=== PATIENT | male | born 1940 | race Caucasian/White ===

== ENCOUNTER 2017-05-15 00:50 | Observation (INO) | payer MEDICARE, BC ==
[~2017-05-15] VITALS: Ht 182.9 cm; Wt 98.2 kg
--- NOTE | ~2017-05-15 | HP ---
PATIENT: MANUEL BEAVERS MEDICAL RECORD: [id number] ACCOUNT: [id number] LOCATION:[address] : 42 ADMISSION DATE: 05/15/17 HISTORY AND PHYSICAL EXAMINATION DATE OF ADMISSION: 05/15/2017 CHIEF COMPLAINT: Lightheadedness, near syncope. HISTORY OF PRESENT ILLNESS: The patient is a 77-year-old gentleman who apparently was feeling ill yesterday. He apparently called EMS, EMS did present, apparently gave him atropine with a low heart rate in the 40s. The patient presented to the Emergency Room where he was found to be somewhat hypotensive and experiencing acute renal failure. PAST MEDICAL HISTORY: Significant that he has had history of atrial fibrillation. He has also had history of diabetes mellitus, ankle surgery in 2016. Cardiac catheterization [place] [address] Huddleston. He is followed by Dr. Le. The patient has had a history of kidney stones, hypertension, lower GI bleed. FAMILY HISTORY: Father had malignant prostate cancer. MEDICATIONS: Include allopurinol 300 mg once a day, he was recently placed on Bactrim-DS 1 p.o. b.i.d. for 10 days, ferrous sulfate 325 one p.o. b.i.d., Lasix 40 mg 1 p.o. daily, gabapentin 300 mg 1 p.o. daily, lisinopril 20 mg p.o. b.i.d., metformin 500 mg p.o. b.i.d., metoprolol succinate 200 mg 1 p.o. daily, nabumetone 750 p.o. daily, KCl 20 mEq p.o. b.i.d., Prilosec 20 mg once a day, Zocor 40 mg once a day, sotalol 80 mg p.o. b.i.d., verapamil 240 mg once a day, vitamin D 2000 international units once a day. HABITS: None. REVIEW OF SYSTEMS: CONSTITUTIONAL: He denies any headaches, seizure, or syncope. Denied change in visual or auditory acuity. PULMONARY: He denies any shortness of breath, cough, or congestion, history of TB, asthma, or bronchitis. CARDIOVASCULAR: He has had no chest pain, palpitation, PND, or orthopnea. GASTROINTESTINAL: No chronic nausea, vomiting, melena, or hematochezia. GENITOURINARY: No urgency, frequency, or dysuria. PHYSICAL EXAMINATION: VITAL SIGNS: In the Emergency Room, initially the patient was hypotensive. He also had bradycardia, rate was in 40s. HEENT: His head is normocephalic. No lesions. Ears: TMs clear. Eyes: Pupils equal, round, reactive to light. His extraocular movements are intact. His nasal cavity, oral cavity, oropharynx clear. NECK: Supple. There is no adenopathy. HEART: Bradycardic. LUNGS: Clear. ABDOMEN: Soft, bowel sounds positive. LABORATORY DATA: White count was 7.1, hemoglobin 10.1, hematocrit 31.1, platelets were 165. He had a sodium of 140, potassium of 4.5, chloride of 105, HISTORY AND PHYSICAL [id number] NIMESH,MANUEL CO2 of 24.8, his BUN of 26, creatinine have been elevated at 2.3. The patient had a chest x-ray showing no cardiomegaly, no active infiltrates. ASSESSMENT: 1. Symptomatic bradycardia, history of atrial fibrillation, possible sick sinus syndrome. 2. Acute renal failure, diabetes, morbid obesity, hypertension. PLAN: The patient will be admitted to be placed on telemetry. Cardiac enzymes will be cycled times 3. He will also be placed on one half normal saline at 100 cc per hour. We will recheck his kidney function. Cardiology consultation will be obtained. The patient may need to have a pacemaker placed secondary to his symptomatic bradycardia. We will continue to follow. TRANSINT:[id number] Voice Confirmation ID: [id number] DOCUMENT ID: [id number] ILA CROUCH MD at 0657 CC: [id number] DICTATION DATE: 05/15/17900 BUSINESS PROJECT MANAGER: 05/15/17 0940 ADM IN [facility] [address] [place] [address]
--- NOTE | ~2017-05-15 | HEMODYNAMI ---
PATIENT:MANUEL BEAVERS MEDICAL RECORD: [id number] : 42 LOCATION:[facility] [address].2[address] ADMISSION DATE: 05/15/17 Generatedon:05/16/201712:23 Patient name: MANUEL BEAVERS Patient #: [id number] SSN: : 1940 Date of study: 05/16/2017 Page: Of Hemodynamic Procedure Report Patient Data Patient Demographics Procedure consent was obtained First Name: MANUEL Gender: Male Last Name: NIMESH : 1940 Patient #: [id number] Age: 77 year(s) Race: Unknown Additional ID: [id number] Contact details Address: [address] [place] [address] State: [place] City: [facility] Zip code: [address] Admission Admission Data Admission Date: 05/15/2017 Admission Time: 2:43 Room #: D.2130 Procedure Procedure Types Cath Procedure Diagnostic Procedure LHC LHC w/Coronaries Procedure Description Procedure Date Procedure Date: 05/16/2017 Procedure Start Time: 12:11 Procedure End Time: 12:19 Procedure Staff Name Function Rex Li MD Performing Physician Tia Mane RT Monitor Mason Lanier RN Nurse Ellen Genao RT Scrub Procedure Data Cath Procedure Fluoroscopy Diagnostic fluoroscopy Total fluoroscopy Time: 1.9 time: 1.9 min min Diagnostic fluoroscopy Total fluoroscopy dose: 485 dose: 485 mGy mGy Contrast Material Contrast Material Type Amount (ml) Isovue 300 45 Entry Location Entry Primary Successful Side Size Upsize Upsize Entry Closure [place]illa ccessful Closure Location (Fr) 1 (Fr) 2 (Fr) Remarks Device Remarks Radial Right 6 Fr Mechanical artery Short Compression Estimated blood loss: 5 ml Diagnostic catheters Device Type Used For End Catheter Placement DIAGNOSTIC Copeland 110cm 5 Multi-vessel Fr catheter ([id number]) Angiography Procedure Complications No complications Procedure Medications Medication Administration Route Dosage Oxygen NC 2 l/min Lidocaine 2% added to field 20 Heparin Flush Bag added to field 2 bags (1000units/500ml NS) 0.9% NaCl I.V. 100 ml/hr Radial Cocktail I.A. 1 syringe (Verapomil 2mg/Nitro 400mcg/Heparin 1500units) Versed I.V. 1 mg Hemodynamics Rest Heart Rate: 55 (bpm) Pressure Samples Time Site Value (mmHg) Purpose Heart Use Rate(bpm) 12:14 LV 146/21,31 EDP 55 12:14 LV 152/7,32 EDP 61 Gradients Valve Time Site Site Mean SEP/DFP Peak To Heart Use 1 2 (mmHg) (sec/min) Peak Rate (mmHg) (bpm) Aortic 12:14 LV AO 56 Snapshots Pre Cath Intra NCS Post Cath Vital Signs Time Heart Resp SPO2 etCO2 NIBP (mmHg) Rhythm Pain Sedation Rate (ipm) (%) (mmHg) Status Level (bpm) 12:06:33 56 19 92 27.8 156/84(139) NSR 0 (11) 10(A) , No pain 12:10:55 55 19 93 13.5 153/78(99) NSR 0 (11) 10(A) , No pain 12:15:17 52 18 93 20.3 122/68(100) NSR 0 (11) 9(A) , No pain 12:19:30 55 17 93 0 131/72(112) NSR 0 (11) 10(A) , No pain Medications Time Medication Route Dose Verified Delivered Reason Notes Effectiveness by by 12:06:21 Oxygen NC 2 l/min Rex Buffie used for Jen Lanier RN procedure 12:06:28 Lidocaine 2% added 20ml Rex Rex for local to vial Jen Li MD anesthetic field HENDRICKSON 12:06:34 Heparin Flush added 2 bags Rex Rex used for Bag to Jen Li MD procedure (1000units/500ml field HENDRICKSON NS) 12:06:44 0.9% NaCl I.V. 100 Rex Buffie Per ml/hr Jen Lanier RN physician 12:09:43 Versed I.V. 1 mg Rex Buffie for sedation Jen Lanier RN, MD 12:13:35 Radial Cocktail I.A. 1 Rex Rex for (Verapomil syringe Jen Li MD vasodilation 2mg/Derek HENDRICKSON 400mcg/Heparin 1500units) Procedure Log Time Note 11:40:17 Mason Lanier RN sent for patient. Start room use. 11:54:56 Diagnostic Cath Status : Elective 11:55:24 Time tracking: Regular hours 11:55:27 Plan of Care:Hemodynamics will remain stable., Cardiac rhythm will remain stable., Comfort level will be maintained., Respiratory function will remain adequate., Patient/ family verbilizes understanding of procedure., Procedure tolerated without complication., Recovers from procedure without complications.. 11:55:32 Patient received from Med II to CCL 2 Alert and oriented. Tansferred to table in Supine position. 11:55:33 Warm blankets applied, and bart hugger turned on for patient comfort. 11:55:34 Correct patient and procedure confirmed by team. 11:55:35 Signed procedure consent form obtained from patient. 11:55:36 ECG and BP/O2 sat monitors applied to patient. 12:05:18 Vital chart was started 12:05:19 Baseline sample Acquired. 12:05:22 Rhythm: sinus rhythm 12:05:24 Full Disclosure recording started 12:05:35 H&P Date Dictated: 05/15/2017 Within 30 days and on chart., H&P Addendum completed by physician on day of procedure. (MUST COMPLETE FOR ALL OUTPATIENTS). 12:06:21 Oxygen 2 l/min NC was administered by Mason Lanier RN; used for procedure; 12:06:28 Lidocaine 2% 20ml vial added to field was administered by Rex Li MD; for local anesthetic; 12:06:34 Heparin Flush Bag (1000units/500ml NS) 2 bags added to field was administered by Rex Li MD; used for procedure; 12:06:44 0.9% NaCl 100 ml/hr I.V. was administered by Mason Lanier RN; Per physician; 12:06:47 Pre-procedure instructions explained to patient. 12:06:47 Pre-op teaching completed and patient verbalized understanding. 12:06:48 Family in waiting room. 12:06:50 Patient NPO since Midnight. 12:07:36 Is the patient allergic to Iodine/contrast media? No. 12:07:38 Was the patient premedicated? No 12:07:45 Is patient on blood thinner?Yes 12:07:49 ACC The patient was administered the following blood thiners within the last 24 hours: ACCPlavix 12:07:51 Patient diabetic? No. 12:07:53 Previous problem with sedation/anesthesia? No ? 12:07:56 Snore? Yes 12:07:58 Sleep apnea? No 12:08:00 Deviated septum? No 12:08:01 Opens mouth fully? Yes 12:08:02 Sticks out tongue? Yes 12:08:03 Airway obstruction? No ? 12:08:10 Dentures? No ? 12:08:15 Pre procedure: right dorsailis pedis pulse 1+ Palpable, but thready & weak; easily obliterated 12:08:17 Pre procedure: left dorsailis pedis pulse 1+ Palpable, but thready & weak; easily obliterated 12:08:20 Patient pain scale 0/10 ?. 12:08:29 IV patent on arrival in left antecubital with 0.9% NaCl at [facility]. 12:08:32 Lab results completed and on chart. 12:08:37 Right Radial & Right Groin area was prepped with chlora-prep and draped in sterile fashion 12:08:38 Alarms reviewed by R. N. 12:08:39 Sharps counted by scrub and verified by R.N. 12:08:41 Physician arrived 12:08:42 --------ALL STOP TIME OUT------ 12:08:42 Final Timeout: patient, procedure, and site verified with staff and physician. All members of the team are in agreement. 12:08:44 Right Radial & Right Groin site verified by team. 12:08:47 Physical assessment completed. ASA score P 2 - A patient with mild systemic disease as per Rex Li MD. 12:08:56 Sedation plan: IV Moderate Sedation Medication:Versed, Fentanyl 12:09:01 Use device set Radial Dx or PCI 12:09:02 ACIST Syringe (26061) opened to sterile field. 12:09:02 Medline Cath Pack ([id number]) opened to sterile field. 12:09:02 Bag Decanter (2002S) opened to sterile field. 12:09:03 SHEATH 6FR Slender ([id number]) opened to sterile field. 12:09:03 DIAGNOSTIC WIRE .035 260cm J wire (904255) opened to sterile field. 12:09:04 ACIST Hand Control (48495) opened to sterile field. 12:09:05 ACIST Manifold (73816) opened to sterile field. 12:09:05 Tegaderm 4 x 4 (1626W) opened to sterile field. 12:09:06 MBrace Wrist Support ([id number]) opened to sterile field. 12:09:10 Procedure started. 12:09:43 Versed 1 mg I.V. was administered by Mason Lanier RN; for sedation; 12:11:48 Local anesthetic to right radial artery with Lidocaine 2% by Rex Li MD.INITIAL ACCESS ONLY 12:11:58 A 6 Fr Short sheath was inserted into the Right Radial artery 12:12:57 A DIAGNOSTIC Copeland 110cm 5 Fr catheter (130223) was advanced over the wire and used for Multi-vessel Angiography. 12:13:35 Radial Cocktail (Verapomil 2mg/Nitro 400mcg/Heparin 1500units) 1 syringe I.A. was administered by Rex Li MD; for vasodilation; 12:14:04 LV hemodynamics recorded. 12:14:05 LV gram done using WILLETT 12:14:08 Injector settings: Ml/sec: 5, Volume: 15, 12:14:41 EF : 60 % 12:14:56 LCA angiography performed. 12:15:06 Injector settings: Ml/sec: 3, Volume: 6, 12:16:30 RCA angiography performed. 12:16:35 Injector settings: Ml/sec: 3, Volume: 6, 12:17:17 Catheter removed. 12:17:42 TR BAND Standard ([id number]) opened to sterile field. 12:18:09 Sheath removed intact; hemostasis achieved with Mechanical Compression to the Right Radial artery. 12:18:11 Procedure ended.(Physican Out) 12:18:25 Fluoroscopy time 01.90 minutes. 12:18:31 Fluoroscopy dose: 485 mGy 12:18:31 Flurop Dose total: 485 12:18:43 Contrast amount:Isovue 300 45ml. 12:18:45 Sharps counted by scrub and verified by R.N. 12:18:47 TR band inflated with 10cc of air. 12:18:49 Insertion/operative site no bleeding no hematoma. 12:19:03 Post right radial artery:stable 12:19:05 Post Procedure Pulses reassessed and unchanged 12:19:07 Post procedure rhythm: unchanged. 12:19:11 Estimated blood loss: 5 ml 12:19:13 Post procedure instruction explained to patient.Patient verbalizes understanding. 12:19:13 Patient needs reinforcement of post procedure teaching. 12:19:36 Procedure and supply charges have been captured, reviewed, submitted and are correct. 12:19:42 Procedure Complication : No complications 12:19:44 Vital chart was stopped 12:19:45 See physician's report for complete and final results. 12:19:50 Report given to [facility]. 12:19:53 Patient transfered to [facility] with Stretcher. 12:19:55 Procedure ended. 12:19:55 Full Disclosure recording stopped 12:19:59 End room use (Document Last) Device Usage Item Name Manufacture Quantity Catalog Hospital Part Current Minima l Lot# / Number Charge Number Stock Stock Serial# Code ACIST Acist 1 49331 077754 554060 737569 20 Syringe Medical (57872) Systems Inc Medline Cath Cardinal 1 [id number] 042476 35295 015162 5 Pack Health ([id number]) Bag Decanter Microtek 1 2001S 196408 82053 575942 5 () Medical Inc. SHEATH 6FR Terumo 1 [id number] 677879 387839 035241 40 Slender ([id number]) DIAGNOSTIC St Joel 1 564697 673452 835854 940685 30 WIRE .035 260cm J wire (768295) ACIST Hand Acist 1 72237 206103 399214 205842 5 Control Medical (03684) Systems Inc ACIST Acist 1 70304 667562 302342 117081 5 Manifold Medical (31816) Systems Inc Tegaderm 4 x 3M 1 1626W 114074 218398 761798 5 4 (1626W) MBrace Wrist Advanced 1 140-0250-00 332430 47568 494327 5 Support Vascular ([id number]) Dynamics DIAGNOSTIC Terumo 1 40-0543 570766 252685 495549 5 Copeland 110cm 5 Fr catheter (352594) TR BAND Terumo 1 [id number] 907629 589493 010273 40 Standard ([id number]) Signature Audit Winkelman Stage Time Signature Unsigned Intra-Procedure 05/16/2017 Tia Mane 12:23:49 PM RT(R) Signatures Monitor : Tia Mane RT Signature : Date : Time : [facility] [address] [place] [address]
[~2017-05-15 00:50] MED LIST: ASPIRIN325 MG PO; BACTRIM DS TABL1 TAB PO; BETAPACE 80 MG80 MG PO; CALAN SR240 MG PO; CLOTRIMAZOLE-BE30 ML TOPICAL; COUMADIN5 MG PO; FERROUS SULFAT325 MG; GLUCOPHAGE500 MG PO; K-DUR20 MEQ PO; LASIX40 MG PO; MULTIPLE VITAMI1 TA1 PO; NEURONTIN 300300 MG PO; OCUVITE TABLET1 TA1 PO; PRILOSEC20 MG PO; PRINIVIL20 MG PO; RELAFEN750 MG PO; TOPROL XL200 MG PO; ZOCOR20 MG PO; ZOVIRAX800 MG PO; ZYLOPRIM300 MG PO
[2017-05-15 01:28] LABS: BASOPHILS 0.4 % (0-2); EOSINOPHILS 2.3 % (0-7); HEMATOCRIT 34.1 % (42.0-54.0); IMMATURE GRANULOCYTES 0.4 % (0-5); LYMPHOCYTES 20.9 % (15-50); MCH 31.6 pg (26.0-34.0); MCHC 32.3 g/dL (31.0-37.0); MONOCYTES 7.1 % (2-11); NEUTROPHILS 68.9 % (40-80); PLATELET COUNT 185 10x3/uL (130-400); RBC 3.48 10x6/uL (4.20-6.10); RDW 14.4 % (11.5-14.5); WBC 9.2 10x3/uL (4.8-10.8)
[2017-05-15 01:42] LABS: ALBUMIN 3.7 g/dL (3.4-5.0); ALKALINE PHOSPHATASE 53 U/L (46-116); ALT (SGPT) 27 U/L (10-68); CALC OSMOLALITY 289 mosm/kg (275-300); CALCIUM 8.3 mg/dL (8.5-10.1); CARBON DIOXIDE 22.5 mmol/L (21.0-32.0); CHLORIDE - SERUM 103 mmol/L (98-107); CREATININE - SERUM 2.3 mg/dL (0.6-1.3); POTASSIUM - SERUM 4.7 mmol/L (3.5-5.1); PROTEIN - SERUM 7.8 g/dL (6.4-8.2); SODIUM 139 mmol/L (136-145); UREA NITROGEN 28 mg/dL (7-18); eGFR NON AFRICAN AMERICAN 29 mL/min (90-120)
[2017-05-15 01:43] LABS: GLUCOSE 209 mg/dL (74-106)
[2017-05-15 01:54] LABS: CKMB 3.8 U/L (0.0-3.6); CREATINE KINASE 128 UL (21-232); TROPONIN-I < 0.017 ng/mL (0.000-0.060)
[2017-05-15 07:27] LABS: APPEARANCE CLEAR (CLEAR); BACTERIA FEW /hpf (NONE SEEN); BILIRUBIN NEGATIVE (NEGATIVE); COLOR YELLOW (YELLOW); EPITHELIAL CELLS OCC /hpf (0-5); GLUCOSE NEGATIVE (NEGATIVE); HYALINE CAST 0-5 /lpf (NONE SEEN); KETONE NEGATIVE (NEGATIVE); MUCUS <1+ /lpf (NONE SEEN); NITRITE NEGATIVE (NEGATIVE); PROTEIN NEGATIVE (NEGATIVE); RED CELLS - URINE OCC /hpf (0-5); SPECIFIC GRAVITY 1.015 (1.005-1.020); UROBILINOGEN NORMAL (NORMAL); WHITE CELLS - URINE 0-5 /hpf (0-5)
[2017-05-15 07:36] LABS: BASOPHILS 0.4 % (0-2); EOSINOPHILS 2.9 % (0-7); HEMATOCRIT 31.1 % (42.0-54.0); HEMOGLOBIN 10.1 g/dL (13.5-17.5); IMMATURE GRANULOCYTES 0.7 % (0-5); LYMPHOCYTES 30.4 % (15-50); MCH 31.6 pg (26.0-34.0); MCHC 32.5 g/dL (31.0-37.0); MCV 97.2 fL (80.0-100.0); MONOCYTES 7.7 % (2-11); NEUTROPHILS 57.9 % (40-80); PLATELET COUNT 165 10x3/uL (130-400); RDW 14.5 % (11.5-14.5); WBC 7.1 10x3/uL (4.8-10.8)
[2017-05-15 08:14] LABS: CALCIUM 8.5 mg/dL (8.5-10.1); CARBON DIOXIDE 24.8 mmol/L (21.0-32.0); CHLORIDE - SERUM 105 mmol/L (98-107); CKMB 3.3 U/L (0.0-3.6); CREATINE KINASE 95 UL (21-232); CREATININE - SERUM 1.9 mg/dL (0.6-1.3); MAGNESIUM - SERUM 1.5 mg/dL (1.8-2.4); POTASSIUM - SERUM 4.5 mmol/L (3.5-5.1); SODIUM 140 mmol/L (136-145); UREA NITROGEN 26 mg/dL (7-18); eGFR NON AFRICAN AMERICAN 37 mL/min (90-120)
[2017-05-15 08:15] LABS: CALC OSMOLALITY 283 mosm/kg (275-300); GLUCOSE 104 mg/dL (74-106); TROPONIN-I < 0.017 ng/mL (0.000-0.060)
[2017-05-15 14:43] LABS: CKMB 2.9 U/L (0.0-3.6); CREATINE KINASE 86 UL (21-232); TROPONIN-I < 0.017 ng/mL (0.000-0.060)
[2017-05-15 20:00] VITALS: BP 139/63
[2017-05-15 20:15] LABS: CKMB 2.5 U/L (0.0-3.6); CREATINE KINASE 105 UL (21-232); TROPONIN-I < 0.017 ng/mL (0.000-0.060)
[2017-05-15 23:02] VITALS: BP 137/63; Ht 182.9 cm; Wt 98.2 kg
[2017-05-16] VITALS: BP 140/60
[2017-05-16 04:00] VITALS: BP 138/61
[2017-05-16 05:38] LABS: BASOPHILS 0.7 % (0-2); EOSINOPHILS 5.8 % (0-7); HEMATOCRIT 31.5 % (42.0-54.0); HEMOGLOBIN 10.2 g/dL (13.5-17.5); IMMATURE GRANULOCYTES 0.3 % (0-5); LYMPHOCYTES 21.4 % (15-50); MCH 31.4 pg (26.0-34.0); MCHC 32.4 g/dL (31.0-37.0); MCV 96.9 fL (80.0-100.0); MEAN PLATELET VOLUME 10.9 fL (7.4-10.4); MONOCYTES 8.8 % (2-11); PLATELET COUNT 168 10x3/uL (130-400); RBC 3.25 10x6/uL (4.20-6.10); RDW 14.1 % (11.5-14.5)
[2017-05-16 06:04] LABS: ANION GAP 15.7 mmol/L (8-16); CALCIUM 8.1 mg/dL (8.5-10.1); CREATININE - SERUM 1.5 mg/dL (0.6-1.3)
[2017-05-16 06:05] LABS: POTASSIUM - SERUM 3.7 mmol/L (3.5-5.1)
[2017-05-16 08:37] VITALS: BP 183/90
== END 2017-05-16 15:48 | disposition home or self-care (01) ==
LOC: D.ER 00:50 → D.EDHOLD 02:43 → D.M2 02:43 → OBSVTIME 02:43 → D.EDHOLD 02:43 → D.M2 17:05
PROVIDERS: Family Medicine
DX: I25.10 Atherosclerotic heart disease of native coronary artery without angina pectoris (principal); I48.91 Unspecified atrial fibrillation; E11.9 Type 2 diabetes mellitus without complications; N17.9 Acute kidney failure, unspecified; E66.9 Obesity, unspecified; Z68.29 Body mass index [BMI] 29.0-29.9, adult

== ENCOUNTER → 2018-08-09 10:24 | Outpatient (CLI) | payer MEDICARE, BC ==
[2017-05-15 23:02] VITALS: BMI 29.3
== END | disposition home or self-care (01) ==
LOC: D.HCCARDIO 10:24
PROVIDERS: ATTEND Internal Medicine Cardiovascular Disease
DX: I34.0 Nonrheumatic mitral (valve) insufficiency (principal)

== ENCOUNTER 2019-02-17 13:49 | Inpatient (IN) | payer MEDICARE, BC ==
[~2019-02-17] VITALS: Ht 182.9 cm; Wt 103.0 kg
--- NOTE | 2019-02-17 13:59 | NUR ---
FLU SWAB SENT TO LAB AT THIS TIME.
[2019-02-17 14:13] LABS: HEMATOCRIT 37.4 % (42.0-54.0); HEMOGLOBIN 12.3 g/dL (13.5-17.5); MCH 32.5 pg (26.0-34.0); MCHC 32.9 g/dL (31.0-37.0); MCV 98.9 fL (80.0-100.0); MEAN PLATELET VOLUME 11.2 fL (7.4-10.4); PLATELET COUNT 159 10x3/uL (130-400); RBC 3.78 10x6/uL (4.20-6.10); RDW 14.6 % (11.5-14.5)
[2019-02-17 14:27] LABS: ANION GAP 15.3 mmol/L (8-16); CALCIUM 8.9 mg/dL (8.5-10.1); CARBON DIOXIDE 24.3 mmol/L (21.0-32.0); CREATININE - SERUM 1.9 mg/dL (0.6-1.3); POTASSIUM - SERUM 3.6 mmol/L (3.5-5.1)
[2019-02-17 14:33] LABS: ALBUMIN 3.3 g/dL (3.4-5.0); BILIRUBIN - TOTAL 1.2 mg/dL (0.2-1.3); PROTEIN - SERUM 7.5 g/dL (6.4-8.2)
[2019-02-17 14:39] LABS: LYMPHOCYTES 2 % (15-50); MONOCYTES 3 % (2-11); NEUTROPHILS 90 % (40-80); PLATELET ESTIMATE NORMAL
[2019-02-17 15:30] LABS: CKMB 2.1 U/L (0.0-3.6); CREATINE KINASE 107 UL (21-232); TROPONIN-I < 0.017 ng/mL (0.000-0.060)
[2019-02-17 18:05] LABS: APPEARANCE CLEAR (CLEAR); BILIRUBIN NEGATIVE (NEGATIVE); COLOR YELLOW (YELLOW); GLUCOSE NEGATIVE (NEGATIVE); KETONE NEGATIVE (NEGATIVE); NITRITE NEGATIVE (NEGATIVE); PROTEIN TRACE mg/dL (NEGATIVE); SPECIFIC GRAVITY 1.015 (1.005-1.020); UROBILINOGEN NORMAL (NORMAL)
[2019-02-17 18:33] VITALS: BP 133/70
[2019-02-17 20:00] VITALS: BP 118/82
[2019-02-17 20:21] VITALS: BP 118/82; BMI 30.8
--- NOTE | 2019-02-17 20:30 | NUR ---
PT ARRIVED TO FLOOR VIA STRETCHER, NO SIGNS OF DISTRESS. AAOX4. PT DENIES ANY PAIN AT THIS TIME. C/O BEING COLD, ASSISTED PT WITH PUTTING ON JACKET AND COVERING UP WITH HIS BLANKETS. PT DENIES ANY OTHER NEEDS. ADMISSION ASSESSMENT COMPLETE. CL IN REACH, BED IN LOWEST POSITION.
[2019-02-18] VITALS: BP 139/73
[2019-02-18 04:00] VITALS: BP 132/73
[2019-02-18 06:22] LABS: BASOPHILS 0.3 % (0-2); EOSINOPHILS 0.6 % (0-7); HEMATOCRIT 33.3 % (42.0-54.0); HEMOGLOBIN 10.5 g/dL (13.5-17.5); IMMATURE GRANULOCYTES 0.4 % (0-5); LYMPHOCYTES 7.7 % (15-50); MCH 31.3 pg (26.0-34.0); MCHC 31.5 g/dL (31.0-37.0); MCV 99.1 fL (80.0-100.0); MEAN PLATELET VOLUME 11.8 fL (7.4-10.4); MONOCYTES 5.2 % (2-11); NEUTROPHILS 85.8 % (40-80); PLATELET COUNT 131 10x3/uL (130-400); RBC 3.36 10x6/uL (4.20-6.10)
[2019-02-18 06:32] LABS: WBC 16.8 10x3/uL (4.8-10.8)
[2019-02-18 06:40] LABS: ALBUMIN 2.6 g/dL (3.4-5.0); ANION GAP 15.7 mmol/L (8-16); BILIRUBIN - TOTAL 0.79 mg/dL (0.2-1.3); CALCIUM 7.8 mg/dL (8.5-10.1); CARBON DIOXIDE 21.5 mmol/L (21.0-32.0); CREATININE - SERUM 1.5 mg/dL (0.6-1.3); POTASSIUM - SERUM 3.2 mmol/L (3.5-5.1); PROTEIN - SERUM 6.2 g/dL (6.4-8.2)
[2019-02-18 10:57] VITALS: BP 141/66
[2019-02-18 13:40] VITALS: Ht 182.9 cm; Wt 103.0 kg
[2019-02-18 17:35] LABS: APTT 29.6 SECONDS (22.8-39.4); INR 1.36 (0.85-1.17); MAGNESIUM - SERUM 1.4 mg/dL (1.8-2.4); PROTIME 16.2 SECONDS (11.6-15.0)
[2019-02-18 17:44] LABS: IRON 18 ug/dl (35-150)
[2019-02-18 17:45] LABS: % SATURATION 8 % (15-55); TOTAL IRON BIND CAPACITY 203 ug/dl (260-445); UNSAT IRON BIND CAPACITY 185 ug/dl (150-375)
--- NOTE | 2019-02-18 18:30 | NUR ---
REVIEWED ASSESSMENT BY SATELLITE INSTALLATION TECHNICIAN AND I CONCUR.
[2019-02-18 18:32] VITALS: BP 139/67
--- NOTE | 2019-02-18 19:20 | NUR ---
EVENING ROUNDS COMPLETE, PT LAYING IN BED, NO SIGNS OF DISTRESS. AAOX4. PT DENIES ANY PAIN OR NEEDS AT THIS TIME. PT IS CONCERNED ABOUT HIS DIARRHEA AND THAT HE SENT A SAMPLE. EXPLAINED TO PT THAT WE WILL KNOW MORE WHEN THE RESULTS OF THE SAMPLE ARE READ. PT VOICED UNDERSTANDING. CL IN REACH, BED IN LOWEST POSITION.
[2019-02-18 20:00] VITALS: BP 160/83
[2019-02-18 21:47] LABS: MAGNESIUM - SERUM 1.5 mg/dL (1.8-2.4); POTASSIUM - SERUM 3.5 mmol/L (3.5-5.1)
[2019-02-19 00:27] VITALS: BP 152/81
[2019-02-19 04:30] VITALS: BP 132/71
[2019-02-19 04:42] LABS: BASOPHILS 0.2 % (0-2); HEMATOCRIT 32.8 % (42.0-54.0); HEMOGLOBIN 10.5 g/dL (13.5-17.5); IMMATURE GRANULOCYTES 0.3 % (0-5); LYMPHOCYTES 10.1 % (15-50); MCH 31.4 pg (26.0-34.0); MCV 98.2 fL (80.0-100.0); NEUTROPHILS 79.4 % (40-80); PLATELET COUNT 151 10x3/uL (130-400); RBC 3.34 10x6/uL (4.20-6.10); RDW 14.7 % (11.5-14.5); WBC 12.8 10x3/uL (4.8-10.8)
[2019-02-19 05:00] LABS: ALBUMIN 2.4 g/dL (3.4-5.0); ANION GAP 13.7 mmol/L (8-16); BILIRUBIN - TOTAL 0.58 mg/dL (0.2-1.3); CALCIUM 7.8 mg/dL (8.5-10.1); CARBON DIOXIDE 21.7 mmol/L (21.0-32.0); CREATININE - SERUM 1.2 mg/dL (0.6-1.3); MAGNESIUM - SERUM 1.3 mg/dL (1.8-2.4); POTASSIUM - SERUM 3.4 mmol/L (3.5-5.1); PROTEIN - SERUM 6.6 g/dL (6.4-8.2)
--- NOTE | 2019-02-19 07:47 | NUR ---
REPORT RECIEVED. PT LYING ON RIGHT SIDE. RR EVEN AND UNLABORED. PT HAS A L WRIST PIV INFUSING NS @175. BED LOCKED AND IN LOWEST POSITION,CALL LIGHT WITHIN REACH. WILL CTM
[2019-02-19 08:32] VITALS: BP 130/81
--- NOTE | 2019-02-19 11:26 | NUR ---
PT IS HAVING LARGE AMOUNT OF DIARRHEA. STATES THIS HAS BEEN GOING ON FOR DAYS NOW. HE SAYS HE FEELS AWFUL. IS AT BEDSIDE AND WORRIED ABOUT PT. PAGED DORIAN RUSHING TO LET HER KNOW THAT PT AND WOULD LIKE TO SEE THERE DR. SENTHIL VASQUEZ
[2019-02-19 11:51] VITALS: BP 105/48
--- NOTE | 2019-02-19 14:54 | NUR ---
I have reviewed this patient and I concur with the Shift Assessment completed by the Licensed Practical Nurse today this shift.
[2019-02-19 16:10] VITALS: BP 132/64
[2019-02-19 20:00] VITALS: BP 150/78
--- NOTE | 2019-02-19 21:00 | NUR ---
PT SITTING UP ON THE EDGE OF THE BED. HE IS SHORT OF BREATH. HIS O2 SAT IS 94% ON ROOM AIR. HE STATES HE HAS BEEN SHORT OF BREATH ALL DAY. HE ALSO HAS A TEMP OF 100.9. HE HAS A THICK LONG SLEEVED SHIRT ON AND IS WRAPPED IN A BLANKET. TOOK THE BLANKET OFF HIM AND TURNED THE TEMP DOWN IN HIS ROOM. TYLENOL GIVEN FOR FEVER. SPOKE TO СЕРГЕЙ KENNEDY REGARDING PT FEELING SHORT OF BREATH. ALBUTERAL UPDRAFTS ORDERED PRN. PT DECLINED A TX AT THIS TIME. ALSO, EDUCATED PT ON THE USE OF THE INCENTIVE SPIROMETER ORDERED. HE HAS EXPIRATORY WHEEZES IN THE UPPER LOBES. PT DID THE INCENTIVE SPIROMETER 10X. HE STATES HE IS FEELING A LITTLE BETTER. ASKED PT TO CALL IF HE DECIDES HE WANTS THE BREATHING TX.VERBALIZED UNDERSTANDING.
[2019-02-20] VITALS (7 sets, daily range): BP systolic 114–179; BP diastolic 66–100
--- NOTE | 2019-02-20 06:09 | NUR ---
CALLED СЕРГЕЙ KENNEDY TO REPORT BLOOD PRESSURE OF 179/97. ORDER GIVEN TO GIVE PTS 0900 DOSE OF LISINOPRIL NOW.
[2019-02-20 06:19] LABS: BASOPHILS 0.2 % (0-2); HEMATOCRIT 33.6 % (42.0-54.0); HEMOGLOBIN 11.1 g/dL (13.5-17.5); IMMATURE GRANULOCYTES 0.4 % (0-5); LYMPHOCYTES 10.7 % (15-50); MCH 32.3 pg (26.0-34.0); MCV 97.7 fL (80.0-100.0); MONOCYTES 9.2 % (2-11); NEUTROPHILS 77.5 % (40-80); PLATELET COUNT 151 10x3/uL (130-400); RBC 3.44 10x6/uL (4.20-6.10); RDW 14.8 % (11.5-14.5); WBC 12.7 10x3/uL (4.8-10.8)
[2019-02-20 06:26] LABS: ALBUMIN 2.7 g/dL (3.4-5.0); ANION GAP 16.8 mmol/L (8-16); BILIRUBIN - TOTAL 0.71 mg/dL (0.2-1.3); CARBON DIOXIDE 19.4 mmol/L (21.0-32.0); CREATININE - SERUM 1.1 mg/dL (0.6-1.3); MAGNESIUM - SERUM 1.6 mg/dL (1.8-2.4); PROTEIN - SERUM 6.9 g/dL (6.4-8.2)
[2019-02-20 06:28] LABS: POTASSIUM - SERUM 4.2 mmol/L (3.5-5.1)
--- NOTE | 2019-02-20 07:40 | NUR ---
REPORT RECIEVED. RR EVEN AND UNLABORED. PT HAS A L WRIST PIV INFUSING NS @ 175. PT CONCERED WITH HIS CARE THUS FAR. HE STATES HE IS NOT GETTING ANY BETTER. HE HAS NOT HAD DIARRHEA SINCE YESTERDAY MORNING. HE DOES STATE THAT HE HAS HAD SOME SWELLING TO HIS SCROTAL SAC AND SOME SOB LAYING DOWN. CALLED DAISY AND RECIEVED ORDERS TO CONSULT DR ALVAREZ AND GET A NEW CHEST XRAY, CONSULET DR METZGER, AND DROP THE FLUIDS FROM 175HR TO 75HR. WILL CTM
--- NOTE | 2019-02-20 11:08 | NUR ---
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 IT MEASURES 4CM X 3CM X 0.3CM. THE WOUND BED IS PALE PINK AND THE WOUND EDGES ARE ROLLED. HIS LOWER LEG IS STAINED DARK AND IS HAIRLESS. THERE IS A MODERATE AMOUNT OF SEROUS DRAINAGE THAT HAS NO ODOR. HE STATES HE HAS BEEN GOING TO THE [facility] FOR 19 MONTHS FOR OUTPATIENT TREATMENT. CURRENTLY BACTROBAN OINTMENT IS BEING APPLIED TO WOUND AND HYDROCORTOSONE CREAM APPLIED TO THE SURROUNDING SKIN. IT IS THEN BEING COVERED WITH A DRESSING. HIS RIGHT GREAT TOE IS PEELING AND HAS SCABS FROM AN INJURY (SCRAPED ON CONCRETE). THIS WOUND IS ALSO BEING TREATED WITH BACTROBAN. THE TOP MEDIAL LEFT FOOT HAS A 2CM X 2CM PEELING/SCABBED AREA WHICH THE PT STATES WAS FROM A PROCEDURE. HE SAYS HE DOES NOT DO ANYTHING TO THIS AREA AND LEAVES IT OPEN TO AIR. CURRENTLY HIS LEGS ARE ELEVATED WHILE HE IS SITTING IN A RECLINER. RECOMMEND CONTINUING WITH THE CURRENT TREATMENT. WOUND CARE WILL MONITOR.
--- NOTE | 2019-02-20 12:44 | NUR ---
Nutrition Follow-up: Noted diet advanced to full liquid yesterday. Pt reports tolerating breakfast this AM with fair/good PO intake. C/o some nausea associated with meds, not food. Denies diarrhea as of visit this AM. Noted wound care note. Diet: Full Liquid No new wt - daily wts ordered Last BM: 02/19 Labs noted: Glu 149, Ca 8.0, Alb 2.7, Mg 1.6 Meds noted: Questran, KDur, MagOx, NS @ 200 -Rec ADAT to low sodium diabetic as medically feasible. -Offer Glucerna with meals. -Will monitor diet advancement/tolerance, skin integrity, wt trend (noted daily wts ordered). -RD following.
--- NOTE | 2019-02-20 15:19 | NUR ---
I have reviewed this patient and I concur with the Shift Assessment completed by the Licensed Practical Nurse today this shift.
--- NOTE | 2019-02-20 19:15 | NUR ---
BEDSIDE REPORT RECEIVED FROM DAY SHIFT, PT CARE ASSUMED. PT SITTING UP IN BED WITH EYES CLOSED, RR EVEN AND NONLABORED, NO S/S OF DISTRESS, AROUSES EASILY TO VOICE. ORIENTED X4, DENIES ANY NEEDS AT THIS TIME. BED IN LOWEST POSITION, SR X2, CALL LIGHT WITHIN REACH. WILL CONTINUE TO MONITOR.
--- NOTE | 2019-02-20 22:00 | NUR ---
ORAL TEMP 98.8 F. BED IN LOWEST POSITION, SRX2, CALL LIGHT WITHIN REACH. WILL CONTINUE TO MONITOR.
[2019-02-21 04:00] VITALS: BP 180/108
[2019-02-21 05:48] LABS: ALBUMIN 2.8 g/dL (3.4-5.0); ANION GAP 18.5 mmol/L (8-16); BILIRUBIN - TOTAL 0.76 mg/dL (0.2-1.3); C-REACTIVE PROTEIN 14.5 mg/dL (0.0-0.9); CALCIUM 8.6 mg/dL (8.5-10.1); CARBON DIOXIDE 19.3 mmol/L (21.0-32.0); CREATININE - SERUM 1.1 mg/dL (0.6-1.3); MAGNESIUM - SERUM 1.8 mg/dL (1.8-2.4); PHOSPHOROUS 2.6 mg/dL (2.5-4.9); POTASSIUM - SERUM 3.8 mmol/L (3.5-5.1); PROTEIN - SERUM 7.7 g/dL (6.4-8.2)
--- NOTE | 2019-02-21 07:45 | NUR ---
REPORT RECIEVED. PT SITTING UP ON THE SIDE OF THE BED. RR EVEN AND UNLABORED ON 2L NC. PT HAS A L WRIST PIV INFUSING NS @ 30. BED LOCKED AND IN LOWEST POSITION. CALL LIGHT WITHIN REACH. WILL CTM
[2019-02-21 08:38] LABS: BASOPHILS 0.3 % (0-2); EOSINOPHILS 1.4 % (0-7); HEMATOCRIT 32.4 % (42.0-54.0); HEMOGLOBIN 10.8 g/dL (13.5-17.5); IMMATURE GRANULOCYTES 0.7 % (0-5); LYMPHOCYTES 11.8 % (15-50); MCH 32.2 pg (26.0-34.0); MCHC 33.3 g/dL (31.0-37.0); MCV 96.7 fL (80.0-100.0); MONOCYTES 9.2 % (2-11); NEUTROPHILS 76.6 % (40-80); RBC 3.35 10x6/uL (4.20-6.10); RDW 14.7 % (11.5-14.5); WBC 11.5 10x3/uL (4.8-10.8)
[2019-02-21 08:41] LABS: PLATELET COUNT 185 10x3/uL (130-400)
[2019-02-21 09:30] VITALS: BP 159/90
--- NOTE | 2019-02-21 13:01 | NUR ---
PT HEART RATE DROPED INTO THE 50'S UPON ENTERING THE ROOM PT WAS SITTING IN THE BEDSIDE CHAIR WITH OXYGEN ON TOP OF HIS NOSE. PUT O2 BACK ON PT. 10 MINS LATER PTS HEART RATE DROPED INTO THE 40'S. NAN VILLA AND GOT ORDERS TO CONSULT CARDIOLOGY. CALLED DR SOOD AT THIS TIME. WILL CTM
--- NOTE | 2019-02-21 15:03 | NUR ---
I have reviewed this patient and I concur with the Shift Assessment completed by the Licensed Practical Nurse today this shift.
[2019-02-21 17:32] VITALS: BP 139/65
--- NOTE | 2019-02-21 17:57 | NUR ---
DR KESSLER SAID IT WAS OK TO GIVE LASIX.
--- NOTE | 2019-02-21 19:10 | NUR ---
BEDSIDE REPORT RECEIVED FROM DAY SHIFT, PT CARE ASSUMED. WROTE NAME ON BOARD. PT SITTING UP IN BEDSIDE CHAIR, AAOX4. DENIES ANY NEEDS AT THIS TIME. BED IN LOWEST POSITION, CALL LIGHT AND URINAL WITHIN REACH. WILL CONTINUE TO MONITOR.
[2019-02-21 20:00] VITALS: BP 158/116
[2019-02-22] VITALS (7 sets, daily range): BP systolic 128–180; BP diastolic 82–99
[2019-02-22 04:20] LABS: BASOPHILS 0.4 % (0-2); EOSINOPHILS 2.9 % (0-7); HEMATOCRIT 31.3 % (42.0-54.0); HEMOGLOBIN 10.1 g/dL (13.5-17.5); LYMPHOCYTES 12.5 % (15-50); MCH 31.4 pg (26.0-34.0); MCHC 32.3 g/dL (31.0-37.0); MCV 97.2 fL (80.0-100.0); MEAN PLATELET VOLUME 11.7 fL (7.4-10.4); MONOCYTES 9.4 % (2-11); NEUTROPHILS 73.8 % (40-80); RBC 3.22 10x6/uL (4.20-6.10); RDW 14.8 % (11.5-14.5); WBC 12.6 10x3/uL (4.8-10.8)
[2019-02-22 04:21] LABS: PLATELET COUNT 141 10x3/uL (130-400)
[2019-02-22 04:35] LABS: ALBUMIN 2.4 g/dL (3.4-5.0); ANION GAP 14.7 mmol/L (8-16); BILIRUBIN - TOTAL 0.56 mg/dL (0.2-1.3); CALCIUM 8.1 mg/dL (8.5-10.1); CARBON DIOXIDE 21.7 mmol/L (21.0-32.0); CREATININE - SERUM 1.2 mg/dL (0.6-1.3); MAGNESIUM - SERUM 1.6 mg/dL (1.8-2.4); POTASSIUM - SERUM 3.4 mmol/L (3.5-5.1); PROTEIN - SERUM 6.5 g/dL (6.4-8.2)
--- NOTE | 2019-02-22 08:00 | NUR ---
A/A/OX4. SITTING UP IN BEDSIDE CHAIR. DENIES ANY PAIN AND NO REQUESTS VOICED. UP TO BATHROOM AND SPECIMEN FOR O/P OBTAINED AND TAKEN TO LAB. ASSESSMENT COMPLETED AND WILL CONTINUE POC. IV PATENT TO LEFT FOREARM AND INFUSING WELL WITHOUT REDNESS OR EDEMA AT SITE. DRESSING TO RIGHT CALF C/D/I.
--- NOTE | 2019-02-22 18:37 | NUR ---
REVIEWED ASSESSMENT BY ROLL THREADER OPERATOR AND I CONCUR.
--- NOTE | 2019-02-22 19:10 | NUR ---
BEDSIDE REPORT RECEIVED FROM DAY SHIFT, PT CARE ASSUMED. WROTE NAME ON BOARD. PT SITTING UP IN BED, WATCHING TV, AAOX4. 150 ML CLEAR YELLOW URINE EMPTIED FROM URINAL. DENIES ANY OTHER NEEDS AT THIS TIME. BED IN LOWEST POSITION, SR X2, CALL LIGHT AND URINAL WITHIN REACH. WILL CONTINUE TO MONITOR.
[2019-02-23 04:00] VITALS: BP 144/74
[2019-02-23 05:29] LABS: BASOPHILS 0.4 % (0-2); EOSINOPHILS 6.2 % (0-7); HEMATOCRIT 33.1 % (42.0-54.0); HEMOGLOBIN 10.9 g/dL (13.5-17.5); IMMATURE GRANULOCYTES 1.2 % (0-5); LYMPHOCYTES 16.2 % (15-50); MCH 31.8 pg (26.0-34.0); MCHC 32.9 g/dL (31.0-37.0); MCV 96.5 fL (80.0-100.0); MEAN PLATELET VOLUME 11.2 fL (7.4-10.4); MONOCYTES 9.2 % (2-11); NEUTROPHILS 66.8 % (40-80); RBC 3.43 10x6/uL (4.20-6.10); RDW 14.8 % (11.5-14.5); WBC 10.6 10x3/uL (4.8-10.8)
[2019-02-23 05:32] LABS: PLATELET COUNT 192 10x3/uL (130-400)
[2019-02-23 06:37] LABS: ALBUMIN 2.5 g/dL (3.4-5.0); ALKALINE PHOSPHATASE 70 U/L (46-116); BILIRUBIN - TOTAL 0.62 mg/dL (0.2-1.3); CALC OSMOLALITY 277 mosm/kg (275-300); CALCIUM 8.4 mg/dL (8.5-10.1); CARBON DIOXIDE 20.5 mmol/L (21.0-32.0); CHLORIDE - SERUM 106 mmol/L (98-107); GLUCOSE 149 mg/dL (74-106); MAGNESIUM - SERUM 1.6 mg/dL (1.8-2.4); POTASSIUM - SERUM 3.4 mmol/L (3.5-5.1); PROTEIN - SERUM 6.9 g/dL (6.4-8.2); SODIUM 138 mmol/L (136-145); UREA NITROGEN 11 mg/dL (7-18); eGFR NON AFRICAN AMERICAN 77 mL/min (90-120)
[2019-02-23 06:38] LABS: ALT (SGPT) 27 U/L (10-68)
--- NOTE | 2019-02-23 07:30 | NUR ---
A/A/OX4. SITTING UP IN CHAIR AT BEDSIDE. DENIES ANY PAIN OR DISCOMFORT AND VOICES NOT REQUESTS. STATES HE IS FEELING MUCH BETTER TODAY THAN YESTERDAY. DRESSING TO RIGHT LEG C/D/I IS DRESSING TO LEFT GREAT TOE. IV PATENT AT KVO RATE OF 30 CC/HR TO LEFT WRIST. ASSESSMENT COMPLETED AND WILL CONTINUE POC.
[2019-02-23 09:00] VITALS: BP 167/90
[2019-02-23 13:04] VITALS: BP 148/80
--- NOTE | 2019-02-23 17:27 | NUR ---
REVIEWED THE ASSESSMENT BY RANJANA BRAXTON AND I CONCUR.
[2019-02-23 17:42] VITALS: BP 182/95
[2019-02-23 20:46] VITALS: BP 161/90
--- NOTE | 2019-02-23 22:14 | NUR ---
PT ALERT AND ORIENTED X4 SITTING UP IN CHAIR. PT RR EVEN AND UNLABORED. PT O2-96% ON ROOM AIR. PT REFUSES O2 AT THIS TIME. NO S/S OF DISTRESS. VITALS STABLE. PT RUNNING 86 A-FIBB ON TELE. PT SCANNER BROKE IN ROOM. BED LOW CALL LIGHT WITHIN REACH WILL CONTINUE TO MONITOR.
[2019-02-24] VITALS: BP 151/75
--- NOTE | 2019-02-24 04:21 | NUR ---
I have reviewed this patient and I concur with the Shift Assessment completed by the Licensed Practical Nurse today this shift.
[2019-02-24 04:30] VITALS: BP 167/89
[2019-02-24 05:32] LABS: BASOPHILS 0.3 % (0-2); EOSINOPHILS 5.9 % (0-7); HEMATOCRIT 34.5 % (42.0-54.0); HEMOGLOBIN 11.5 g/dL (13.5-17.5); IMMATURE GRANULOCYTES 1.3 % (0-5); LYMPHOCYTES 12.5 % (15-50); MCHC 33.3 g/dL (31.0-37.0); MCV 96.1 fL (80.0-100.0); MEAN PLATELET VOLUME 10.8 fL (7.4-10.4); MONOCYTES 8.3 % (2-11); NEUTROPHILS 71.7 % (40-80); RBC 3.59 10x6/uL (4.20-6.10); RDW 14.5 % (11.5-14.5); WBC 10.8 10x3/uL (4.8-10.8)
[2019-02-24 05:34] LABS: PLATELET COUNT 293 10x3/uL (130-400)
[2019-02-24 06:11] LABS: ALBUMIN 2.5 g/dL (3.4-5.0); ALKALINE PHOSPHATASE 73 U/L (46-116); ALT (SGPT) 32 U/L (10-68); CALC OSMOLALITY 278 mosm/kg (275-300); CALCIUM 8.4 mg/dL (8.5-10.1); CARBON DIOXIDE 22.7 mmol/L (21.0-32.0); CHLORIDE - SERUM 104 mmol/L (98-107); GLUCOSE 150 mg/dL (74-106); POTASSIUM - SERUM 3.4 mmol/L (3.5-5.1); SODIUM 138 mmol/L (136-145); UREA NITROGEN 12 mg/dL (7-18); eGFR NON AFRICAN AMERICAN 77 mL/min (90-120)
[2019-02-24 08:02] VITALS: BP 158/83
--- NOTE | 2019-02-24 10:43 | MORECARE ---
CASE MANAGEMENT DISCHARGE SUMMARY PATIENT: MANUEL BEAVERS UNIT: [id number] ADM DATE: 02/19/19 AGE: 78 : 41 SEX: M ROOM/BED: D.2106 AUTHOR: PENELOPE BRANNON PHYSICIAN: REFERRING PHYSICIAN: ANDERSON DOMINGUEZ MD DATE OF SERVICE: 02/24/19 Discharge Plan Patient Name: MANUEL BEAVERS [facility] [facility] 1940 Planned Disposition: Anticipated Discharge Date: Discharge Date: Expected LOS: Initial Reviewer: [email or web address] Initial Review Date: 02/24/2019 Generated: 02/24/19 11:43 am Coverage Notice Reviewer: [email or web address] Magy Richter Notice Issued Date-Time: 02/18/2019 13:35 Notice Type: Medicare Outpatient Observation Notice Notice Delivered To: Patient Relationship to Patient: Self Project Estimator Name: Delivery Method: HAND - Hand Delivered Erinn Days: Prior Verbal Notification: Recipient Understood Notice: Recipient Signature: Yes Med Rec Note Co-signed by Attending: Coverage Notice Comment: ANTONI DISCUSSED WITH PATIENT AND HIS , SHAMA, AFTER VERBAL CONSENT OBTAINED. Patient Name: MANUEL BEAVERS Page [phone] at 1043 All edits/amendments must be made on the electronic document DICTATION DATE: 02/24/19 1043 QUALITY IMPROVEMENT ENGINEER: BRITNEY 02/24/19 1043 RPT#: [id number] DC DATE: STATUS: ADM IN [facility] [address] [place] [address] END OF REPORT
--- NOTE | 2019-02-24 10:50 | MORECARE ---
CASE MANAGEMENT DISCHARGE SUMMARY PATIENT: MANUEL BEAVERS UNIT: [id number] ADM DATE: 02/19/19 AGE: 78 : 41 SEX: M ROOM/BED: D.2106 AUTHOR: SALUDDOC PHYSICIAN: REFERRING PHYSICIAN: ANDERSON DOMINGUEZ MD DATE OF SERVICE: 02/24/19 Discharge Plan Patient Name: MANUEL BEAVERS [facility] [facility] 1940 Planned Disposition: Anticipated Discharge Date: Discharge Date: Expected LOS: Initial Reviewer: [email or web address] Initial Review Date: 02/24/2019 Generated: 02/24/19 11:50 am Comments DCP- Discharge Planning Updated by [email or web address]: Ev Gloria on 02/24/19 9:[address] Patient Name: MANUEL BEAVERS Admission Status: ER Accout number: [id number] Admission Date: 02-19-2019 : 1940 Admission Diagnosis: Attending: MENA DOMINGUEZ Current LOS: 5 Anticipated DC Date: Planned Disposition: Primary Insurance: MEDICARE A & B Discharge Planning Comments: CM MET WITH PATIENT AND HIS SHAMA ABOUT DC PLANNING/NEEDS. HE CURRENTLY DOES NOT HAVE ANY EQUIPMENT OR SERVICES PRIOR TO HOSPITALIZATION. HE IS BEING SEEN BY PT AND USING A WALKER WITH THEM. I ANTICIPATE HE WILL NEED EQUIPMENT AND POSSIBLY REHAB VS HH. I SPOKE WITH HIM AND HIS ABOUT IT. THEY ARE UNSURE AT THIS POINT. IS INTERESTED IN [facility] IF NEEDS IT. I GAVE A LIST OF HH AGENCIES TO LOOK AT AND A CHOICE FORM. CM WILL CHECK BACK WITH THEM CLOSER TO DISCHARGE. Specialty Department Supervisor: Ev Gloria DCPIA - Discharge Planning Initial Assessment Updated by [email or web address]: Ev Gloria on 02/24/19 10:43 am * Is the patient Alert and Oriented? Yes * PCP MIKO * Pharmacy [facility] * Preadmission Environment Home with Family * ADLs Independent * Other Equipment NONE * List name and contact numbers for known caregivers / representatives who currently or will assist patient after discharge: SHAMA,, * Community resources currently utilized None * Additional services required to return to the preadmission environment? Yes * Can the patient safely return to the preadmission environment? Yes * Has this patient been hospitalized within the prior 30 days at any hospital? No Coverage Notice Reviewer: [id number] Magy Richter Notice Issued Date-Time: 02/18/2019 13:35 Notice Type: Medicare Outpatient Observation Notice Notice Delivered To: Patient Relationship to Patient: Self Director Investment Banking Name: Delivery Method: HAND - Hand Delivered Erinn Days: Prior Verbal Notification: Recipient Understood Notice: Recipient Signature: Yes Med Rec Note Co-signed by Attending: Coverage Notice Comment: ANTONI DISCUSSED WITH PATIENT AND HIS , SHAMA, AFTER VERBAL CONSENT OBTAINED. Last DP export: 02/24/19 9:43 Patient Name: MANUEL BEAVERS Page [phone] at 1050 All edits/amendments must be made on the electronic document DICTATION DATE: 02/24/19 105 CLINIC COORDINATOR: BRITNEY 02/24/19 1050 RPT#: [id number] DC DATE: STATUS: ADM IN [facility] [address] [place] [address] END OF REPORT
[2019-02-24 11:56] VITALS: BP 171/85
[2019-02-24 12:09] LABS: ANA REFLEX - DIRECT Negative (Negative)
--- NOTE | 2019-02-24 13:53 | NUR ---
Nutrition Follow-up: Noted diet advanced yesterday. Pt tolerating solids; ~75% of breakfast eaten this AM. Diet: Cardiac PO intake: 82% avg x 7 meals No new wt - daily wts ordered Last BM: 02/23 Labs noted: Glu 150, K+ 3.4, Ca 8.4, Alb 2.5 Meds noted: Lasix, KDur, Miralax, Questran, MagOx -Diet changed to Cardiac Diabetic. -Need new wt. -RD following.
--- NOTE | 2019-02-24 15:31 | NUR ---
I have reviewed this patient and I concur with the Shift Assessment completed by the Licensed Practical Nurse today this shift.
--- NOTE | 2019-02-24 16:57 | NUR ---
REFUSED TO WEAR SCROTAL SUPPORT
[2019-02-24 17:20] VITALS: BP 162/85
--- NOTE | 2019-02-24 19:30 | NUR ---
PT SITTING UP IN CHAIR ALERT AND ORIENTED X4. PT ON 1500ML FLUID RESTRICTION. RR EVEN AND UNLABORED AT THIS TIME. NO S/S OF DISTRESS SEEN. VITALS STABLE. BED LOW CALL LIGHT WITHIN REACH. WILL CONTINUE TO MONITOR.
[2019-02-24 20:30] VITALS: BP 185/81
[2019-02-25] VITALS: BP 175/84
--- NOTE | 2019-02-25 02:46 | NUR ---
I have reviewed this patient and I concur with the Shift Assessment completed by the Licensed Practical Nurse today this shift.
[2019-02-25 04:30] VITALS: BP 140/78
[2019-02-25 06:14] LABS: BASOPHILS 0.7 % (0-2); EOSINOPHILS 6.1 % (0-7); HEMATOCRIT 32.7 % (42.0-54.0); HEMOGLOBIN 10.8 g/dL (13.5-17.5); LYMPHOCYTES 14.1 % (15-50); MCH 31.7 pg (26.0-34.0); MCV 95.9 fL (80.0-100.0); MONOCYTES 8.4 % (2-11); NEUTROPHILS 69.7 % (40-80); PLATELET COUNT 305 10x3/uL (130-400); RBC 3.41 10x6/uL (4.20-6.10); RDW 14.3 % (11.5-14.5); WBC 9.2 10x3/uL (4.8-10.8)
[2019-02-25 06:44] LABS: ALBUMIN 2.5 g/dL (3.4-5.0); ANION GAP 12.8 mmol/L (8-16); BILIRUBIN - TOTAL 0.55 mg/dL (0.2-1.3); CALCIUM 7.9 mg/dL (8.5-10.1); CARBON DIOXIDE 25.6 mmol/L (21.0-32.0); CREATININE - SERUM 1.1 mg/dL (0.6-1.3); POTASSIUM - SERUM 3.4 mmol/L (3.5-5.1)
--- NOTE | 2019-02-25 07:00 | NUR ---
RECEIVED REPORT. ASSUMED CARE OF PATIENT. PATIENT SITTING TO SIDE OF BED. CALL LIGHT WITHIN REACH. NO DISTRESS. DENIES NEEDS AT THIS TIME.
--- NOTE | 2019-02-25 10:08 | NUR ---
PATIENT AND HIS UPSET AND HAVE MULTIPLE COMPLAINTS ABOUTS THE PHYSICIAN NOT ORDEREING TEST HE SAID HE WOULD, NURSES NOT DOING DRESSING CHANGE SCHEDULED, GIVING HIM MEDICATIONS THAT WERE TOLD WERE GOING TO BE STOPPED. THIS ENT CONSULTANT APOLOGIZED FOR ALL INCONVENIENCES EXPERIENED AND AM TRYING TO MAKE THINGS BETTER FOR THEM. EXPLAINED THAT IF THE MD STATES HE WOULD ORDER TEST AND THEN GOES BACK TO THE COMPUTER AND THE TEST HAS ALREADY BEEN COMPLETED, HE WILL NOT REORDER. TRYING TO PRESENT ALL SCENARIOS IS VERY THOROUGH. PATIENT AND ARE CALM, JUST WOULD LIKE BETTER COMMUNICATION BETWEEN THEM AND THE PROVIDERS. PATIENT CONTINUES WITH SWELLING TO RIGHT LOWER LEG AND DRESSING CHANGE IS COMPLETE AT THIS TIME PER THIS ENT CONSULTANT. NO DISTRESS. CALL LIGHT WITHIN REACH.
[2019-02-25 10:09] VITALS: BP 179/85
--- NOTE | 2019-02-25 10:30 | NUR ---
WOUND CARE - VENOUS ULCER TO RIGHT LOWER MEDIAL LEG WITH 90% SLOUGH TO WOUND BED. WOUND IS APPROX 4.8 X 5 WITH IRREGULAR BORDERS. WOUND CARE PROVIDED ORDERED. SURROUNDING SKIN IS WITH 3-4+ PITTING EDEMA, RED, NOT HOT TO TOUCH. PATIENT IS SITTING IN CHAIR AT THIS TIME.
--- NOTE | 2019-02-25 12:04 | NUR ---
PATIENT SITTING UP TO CHAIR. NO DISTRESS. CALL LIGHT WITHIN REACH. DENIES NEEDS.
--- NOTE | 2019-02-25 12:28 | NUR ---
MEDICATED FOR NAUSEA AT THIS TIME.
--- NOTE | 2019-02-25 13:07 | EC ---
PATIENT:MANUEL BEAVERS DATE OF SERVICE: 02/19/19 SEX: M MEDICAL RECORD: [id number] DATE OF : [birth year] LOCATION:D.M2 D.210 AGE OF PATIENT: 78 ADMISSION DATE: 02/19/19 REFERRING PHYSICIAN: INTERPRETING PHYSICIAN: PEDRO KESSLER MD ECHOCARDIOGRAM REPORT ECHO CHARGES 4 ECHO COMPLETE Date: 02/21/19 CLINICAL DIAGNOSIS: ARRYTHMIA ECHOCARDIOGRAPHIC MEASUREMENTS (adult normal given) AC root (d.<3.7cm) 3.0 cm LV Septum d (<1.2 cm> 1.9 cm Valve Excursion 1.2 cm LV Septum (systole) 2.1 cm Left Atria (s.<4.0cm> 3.5 cm LVPW d(<1.2cm) 0.8 cm RV (d.<2.3cm) 3.2 cm LVPW (sytole) 1.1 cm LV diastole(<5.6CM) 4.5 cm MV E-F(>70mm/sec) cm LV systole 4.2 cm LVOT Diameter 1.9 cm MV exc.(>10mm) cm Est.ejection fraction (50-75%) % DOPPLER: LVIT cm/sec A 27 cm/sec E 118 cm/sec LA cm/sec RVSP 41.8 mmHg LVOT 76 cm/sec AOP1/2T m/s Asc. Ao 216 cm/sec RVOT 54 cm/sec RA cm/sec PA 100 cm/sec AV Gradient Peak 18.7 mmHg AV Mean 9.7 mmHg AV Area 0.8 cm MV Gradient Peak 7.3 mmHg MV Mean 2.5 mmHg MV Area cm COMMENTS: Claims Adjuster Supervisor: Ceasar WIN Consulting Analyst: 3 Dr. Suarez TAPE# PACS Pericardial Effusion N DATE OF SERVICE: LVH is present. LV internal dimensions are normal. LV wall motion grossly appears normal. EF is greater than 55%. Aortic valve is calcified with a minimal restriction of leaflet motion. Peak gradient of 18 mmHg putting this in mild range. Left atrium is normal at 3.2 cm. Mitral valve shows no prolapse. Mild MR. Right-sided chambers are grossly normal. Trace TR. TRANSINT:[id number] Voice Confirmation ID: [id number] DOCUMENT ID: [id number] ECHOCARDIOGRAM REPORT [id number] MANUEL BEAVERS PEDRO KESSLER MD at 1307 CC: [id number] DICTATION DATE: 02/22/19 1058 INSERT OPERATOR: 02/22/19 1331 ADM IN [facility] [address] [place] [address]
--- NOTE | 2019-02-25 13:07 | CN ---
PATIENT NAME:MANUEL BEAVERS MEDICAL RECORD: [id number] : [birth year] LOCATION:D. D.2106 ADMIT DATE: 02/19/19 ACCOUNT: [id number] CONSULTING PHYSICIAN: PEDRO KESSLER MD REFERRING PHYSICIAN: ANDERSON DOMINGUEZ MD DATE OF CONSULTATION: 02/21/2019 HISTORY OF PRESENT ILLNESS: A 78-year-old gentleman with history of atrial fibrillation, diabetes mellitus, admitted with GI distress, nausea, vomiting, diarrhea and noted to have an intermittent bradycardia, some time he become nausea consisted with increased vagal tone, no prolonged pauses, on both a calcium channel blockade, verapamil as well as Betapace. We are asked to see him concerning his cardiovascular status. PAST MEDICAL HISTORY: Includes, 1. History of hypertension. 2. Hyperlipidemia. 3. Diabetes mellitus. 4. Atrial fibrillation. 5. Peripheral neuropathy. 6. Gout. ALLERGIES: SULFA. HOME MEDICATIONS: Include, metformin 500 mg p.o. b.i.d., allopurinol 300 every day, omeprazole 20 every day, Neurontin 300 b.i.d., aspirin 325 every day, simvastatin 20 mg p.o. day, sotalol 80 b.i.d., verapamil 240 every day, and lisinopril 20 every day. SOCIAL HISTORY: Nonsmoker, nondrinker. Typically, he is able to take care of all his ADLs, does try to stay active. No set exercise program. PHYSICAL EXAMINATION: GENERAL: Pleasant gentleman in no acute distress, appears stated age. VITAL SIGNS: Blood pressure 135/65, pulse 56, irregular. HEENT: Normocephalic and atraumatic. NECK: No bruits noted. HEART: Irregular, rate is controlled. A II/ systolic ejection murmur. LUNGS: Good air excursion. ABDOMEN: Soft, nontender. EXTREMITIES: Pulses 2+. No edema. DIAGNOSTIC DATA: EKG shows atrial fibrillation and underlying right bundle, nonspecific ST-T changes. IMPRESSION: Atrial fibrillation with bradycardia on AV block and calcium channel blockade as well as beta blockade. We will hold the verapamil at this point. Continue sotalol after GI distress. Clears, etc. I will need to consider DOAC to his medications given PANTERA score. TRANSINT:[id number] Voice Confirmation ID: [id number] DOCUMENT ID: [id number] CONSULT REPORT [id number] MANUEL BEAVERS,PEDRO Gil MD at 1307 CC: [id number] DICTATION DATE: 02/21/192125 FLEXOGRAPHIC PRESS PLATE SETTER: 02/22/19 0055 ADM IN [facility] [address] [place] [address]
[2019-02-25 14:12] VITALS: BP 139/79
--- NOTE | 2019-02-25 16:13 | NUR ---
PATIENTS IV INFILTRATED TO LEFT FOREARM. ATTEMPTED X [address] IV TO RIGHT FOREARM AND THE VEINS BLOW SOON THE IV CATHETER IS PLACED. HAVE REQUESTED HELP FROM MARV IRRIGATION INSTALLATION SPECIALIST TO PLACED IV, PATIENT IS DEHYDRATED AND A DIFFICULT STICK.
--- NOTE | 2019-02-25 16:30 | NUR ---
22 GAUGE IV PLACED TO RIGHT WRIST X 1 STICK BY MARV SANTANA. IV SITE TAPED, DATED AND SECURED. PATIENT TOLERATED IV PLACEMENT WELL. 20 GAUGE IV REMOVED FROM LEFT FOREARM. CATHETER TIP INTACT. NO BLEEDING FROM SITE. 2X2 GAUZE APPLIED AND SECURED WITH TAPE.
--- NOTE | 2019-02-25 17:05 | NUR ---
DIET REQUEST SENT FOR PATIENT TO HAVE REGULAR COKE ON HIS MEAL TRAY ORDERED BY THE PHYSICIAN.
--- NOTE | 2019-02-25 18:37 | NUR ---
MEDICATED FOR NAUSEA AT THIS TIME. NO DISTRESS. SITTING UP TO CHAIR AT BEDSIDE.
[2019-02-25 19:00] VITALS: BP 172/93
[2019-02-25 20:00] VITALS: BP 176/84
--- NOTE | 2019-02-25 22:04 | NUR ---
PATIENT SITTING UP IN CHAIR. NASAL CANULA AT 2L/MIN. IV TO THE R WRIST SL, NO REDNESS, PAIN OR SWELLING AT IV SITE. PATIENT COMPLAINS OF SOME NAUSEA, BUT NO PAIN. PATIENT HAS CELULITUS TO THE RIGHT LEG WITH DRESSING C/D/I. RIGHT LEG EXTREMELY RED AND SWOLLEN, SHINY SKIN. ENCOURAGE PATIENT TO CALL WITH ANY NEEDS. CHAIR IN LOCKED POSITION. CALL LIGHT AND BESIDE TABLE WITHIN REACH.
[2019-02-26 01:21] VITALS: BP 160/79
[2019-02-26 03:07] LABS: MYCOPLASMA PNEUMO IGG 633 U/mL (0-99)
[2019-02-26 04:00] VITALS: BP 145/89
[2019-02-26 04:43] LABS: BASOPHILS 0.6 % (0-2); EOSINOPHILS 4.6 % (0-7); HEMATOCRIT 35.9 % (42.0-54.0); HEMOGLOBIN 12.1 g/dL (13.5-17.5); IMMATURE GRANULOCYTES 0.8 % (0-5); LYMPHOCYTES 12.5 % (15-50); MCH 32.4 pg (26.0-34.0); MCHC 33.7 g/dL (31.0-37.0); MEAN PLATELET VOLUME 10.4 fL (7.4-10.4); MONOCYTES 7.6 % (2-11); NEUTROPHILS 73.9 % (40-80); PLATELET COUNT 324 10x3/uL (130-400); RBC 3.74 10x6/uL (4.20-6.10); RDW 14.3 % (11.5-14.5); WBC 9.6 10x3/uL (4.8-10.8)
[2019-02-26 05:01] LABS: ALBUMIN 2.7 g/dL (3.4-5.0); ANION GAP 14.8 mmol/L (8-16); BILIRUBIN - TOTAL 0.55 mg/dL (0.2-1.3); CALCIUM 8.4 mg/dL (8.5-10.1); CARBON DIOXIDE 26.3 mmol/L (21.0-32.0); CREATININE - SERUM 1.1 mg/dL (0.6-1.3); POTASSIUM - SERUM 3.1 mmol/L (3.5-5.1); PROTEIN - SERUM 7.2 g/dL (6.4-8.2)
[2019-02-26 07:59] VITALS: BP 147/75
--- NOTE | 2019-02-26 10:30 | NUR ---
PT SITTING UP IN CHAIR SINCE BEFORE SHIFT CHANGE. HAVING SOME NAUSEA, ZOFRAN GIVEN. PO MEDS HELD FOR NOW PER PT REQUEST. WILL GIVE ONCE ABLE TO HOLD THEM DOWN. VISITORS IN ROOM NOW.
[2019-02-26 11:23] VITALS: BP 157/75
--- NOTE | 2019-02-26 12:32 | NUR ---
Nutrition Consult/Follow-up: Noted pt c/o nausea without vomiting; GES and GB US ordered. Per MD, pt to have regular Coca-[employer]a with meals; discussed in IDT. Diet: Cardiac Diabetic, 1500 cc fluid restriction PO intake: 25% yesterday No new wt - daily wts ordered Labs noted: Glu 208, K+ 3.1, Ca 8.4, Alb 2.7 Meds noted: Lasix, Miralax, Questran, Zofran -Do not rec regular sodas with meals 2/2 elevated BS, altered GI function -Need new wt -RD following
--- NOTE | 2019-02-26 12:53 | NUR ---
PT NOT ABLE TO TOLERATE IV POTASSIUM. WILL GET ORAL DOSE WHEN ABLE TO TAKE PO AGAIN.
--- NOTE | 2019-02-26 17:54 | NUR ---
DRESSING TO RLE CHANGED. PRIOR DRESSING WAS DRY AND INTACT. NO DRAINAGE NOTED BUT INSIDE OF WOUND MOIST WITH MEDICATION. SWELLING ABOUT THE SAME PER PT.
--- NOTE | 2019-02-26 19:33 | NUR ---
EVENING ROUNDS COMPLETE, PT SITTING UP IN CHAIR, NO SIGNS OF DISTRESS. AAOX4. PT DENIES ANY PAIN OR NEEDS AT THIS TIME. CL IN REACH, BED IN LOWEST POSITION.
[2019-02-26 20:00] VITALS: BP 147/77
--- NOTE | 2019-02-27 00:52 | NUR ---
PT REFUSED IV ANTIBIOTIC, EXPLAINED IMPORTANCE OF MEDICATION, PT CONTINUES TO REFUSE.
[2019-02-27 01:08] VITALS: BP 161/83
[2019-02-27 05:23] LABS: BASOPHILS 0.2 % (0-2); EOSINOPHILS 4.2 % (0-7); HEMATOCRIT 33.9 % (42.0-54.0); HEMOGLOBIN 11.1 g/dL (13.5-17.5); IMMATURE GRANULOCYTES 0.8 % (0-5); LYMPHOCYTES 15.6 % (15-50); MCH 31.7 pg (26.0-34.0); MCHC 32.7 g/dL (31.0-37.0); MCV 96.9 fL (80.0-100.0); MEAN PLATELET VOLUME 10.9 fL (7.4-10.4); MONOCYTES 9.2 % (2-11); RDW 14.2 % (11.5-14.5); WBC 8.9 10x3/uL (4.8-10.8)
[2019-02-27 05:27] LABS: PLATELET COUNT 250 10x3/uL (130-400)
[2019-02-27 05:32] VITALS: BP 140/77
[2019-02-27 05:49] LABS: ALBUMIN 2.4 g/dL (3.4-5.0); ALKALINE PHOSPHATASE 78 U/L (46-116); ALT (SGPT) 38 U/L (10-68); BILIRUBIN - TOTAL 0.57 mg/dL (0.2-1.3); CALCIUM 7.9 mg/dL (8.5-10.1); CARBON DIOXIDE 29.6 mmol/L (21.0-32.0); CHLORIDE - SERUM 102 mmol/L (98-107); CREATININE - SERUM 0.9 mg/dL (0.6-1.3); PROTEIN - SERUM 6.2 g/dL (6.4-8.2); SODIUM 136 mmol/L (136-145); UREA NITROGEN 14 mg/dL (7-18); eGFR NON AFRICAN AMERICAN 87 mL/min (90-120)
[2019-02-27 05:58] LABS: CALC OSMOLALITY 275 mosm/kg (275-300); GLUCOSE 160 mg/dL (74-106); POTASSIUM - SERUM 3.7 mmol/L (3.5-5.1)
--- NOTE | 2019-02-27 07:21 | NUR ---
PT RECEIVED SITTING UP IN CHAIR RESTING, AROUSES TO VOICE AND LIGHT TOUCH. BEDSIDE REPORT GIVEN AND PT WITHOUT NEED AT PRESENT.
[2019-02-27 10:39] VITALS: BP 145/80
--- NOTE | 2019-02-27 11:24 | NUR ---
PT IV REMOVED AND DOES NOT WANT ONE STARTED BACK. WANTS TO GET ORAL MEDS ONLY RIGHT NOW. EXPLAINED ABOUT ORDERS FOR LASIX AND ANTIBIOTICS IV ROUTE, WILL ASK FOR ORAL WHEN ROUNDS.
[2019-02-27 13:19] VITALS: BP 122/64
[2019-02-27 18:10] VITALS: BP 129/67
[2019-02-27 19:08] LABS: OVA + PARASITE EXAM Final report (())
[2019-02-27 21:28] VITALS: BP 138/71
[2019-02-28] VITALS: BP 135/74
[2019-02-28 04:00] VITALS: BP 145/76
[2019-02-28 04:43] LABS: BASOPHILS 0.5 % (0-2); EOSINOPHILS 3.7 % (0-7); IMMATURE GRANULOCYTES 0.7 % (0-5); LYMPHOCYTES 17.2 % (15-50); MCH 31.6 pg (26.0-34.0); MCHC 32.4 g/dL (31.0-37.0); MCV 97.7 fL (80.0-100.0); MEAN PLATELET VOLUME 9.9 fL (7.4-10.4); MONOCYTES 8.6 % (2-11); NEUTROPHILS 69.3 % (40-80); PLATELET COUNT 285 10x3/uL (130-400); RBC 3.48 10x6/uL (4.20-6.10); RDW 14.1 % (11.5-14.5); WBC 10.7 10x3/uL (4.8-10.8)
[2019-02-28 05:00] LABS: ALBUMIN 2.4 g/dL (3.4-5.0); ANION GAP 10.5 mmol/L (8-16); BILIRUBIN - TOTAL 0.4 mg/dL (0.2-1.3); CALCIUM 8.2 mg/dL (8.5-10.1); CARBON DIOXIDE 28.8 mmol/L (21.0-32.0); CREATININE - SERUM 1.1 mg/dL (0.6-1.3); POTASSIUM - SERUM 3.3 mmol/L (3.5-5.1); PROTEIN - SERUM 6.4 g/dL (6.4-8.2)
--- NOTE | 2019-02-28 07:41 | NUR ---
CALL PLACED TO CLARIFY ORDER FOR US OF BLE. RIGHT LEG DONE YESTERDAY. CINDAY SAMPLE PATTERNMAKER STATES DO NOT NEED TODAY. RADIOLOGY UPDATED.
[2019-02-28 09:06] VITALS: BP 138/62
--- NOTE | 2019-02-28 11:28 | NUR ---
Nutrition Follow-up: Pt sleeping this AM. Spoke with . She reports improved appetite/PO intake. Denies N/V. stated that pt has not gotten ice cream, OJ, etc as requested. Discussed fluid restriction. Diet: AHA ADA, 1500 cc fluid restriction No new wt - daily wts ordered Last BM: 02/26 Labs noted: Glu 186, K+ 3.3, Ca 8.2, Alb 2.4 Meds noted: Bumex, Megace, KDur, Questran -Continue current diet as tolerated. -Need new wt. -RD following.
[2019-02-28 13:21] VITALS: BP 138/62
--- NOTE | 2019-02-28 14:05 | MORECARE ---
CASE MANAGEMENT DISCHARGE SUMMARY PATIENT: MANUEL BEAVERS UNIT: [id number] ADM DATE: 02/19/19 AGE: 78 : 41 SEX: M ROOM/BED: D.2106 AUTHOR: SALUD,DOC PHYSICIAN: REFERRING PHYSICIAN: ANDERSON DOMINGUEZ MD DATE OF SERVICE: 02/28/19 Discharge Plan Patient Name: MANUEL BEAVERS Facility: [facility]:[place] : 1940 Planned Disposition: Home with Home Health Anticipated Discharge Date: Discharge Date: Expected LOS: Initial Reviewer: [email or web address] Initial Review Date: 02/24/2019 Generated: 02/28/19 3:05 pm DCP- Discharge Planning Updated by [email or web address]: Ev Gloria on 02/24/19 9:[address] Patient Name: MANUEL BEAVERS Admission Status: ER Accout number: [id number] Admission Date: 02-19-2019 : 1940 Admission Diagnosis: Attending: MENA DOMINGUEZ Current LOS: 5 Anticipated DC Date: Planned Disposition: Primary Insurance: MEDICARE A & B Discharge Planning Comments: CM MET WITH PATIENT AND HIS SHAMA ABOUT DC PLANNING/NEEDS. HE CURRENTLY DOES NOT HAVE ANY EQUIPMENT OR SERVICES PRIOR TO HOSPITALIZATION. HE IS BEING SEEN BY PT AND USING A WALKER WITH THEM. I ANTICIPATE HE WILL NEED EQUIPMENT AND POSSIBLY REHAB VS HH. I SPOKE WITH HIM AND HIS ABOUT IT. THEY ARE UNSURE AT THIS POINT. IS INTERESTED IN [facility] IF NEEDS IT. I GAVE A LIST OF HH AGENCIES TO LOOK AT AND A CHOICE FORM. CM WILL CHECK BACK WITH THEM CLOSER TO DISCHARGE. Remote Medical Coder: Ev Gloria DCPIA - Discharge Planning Initial Assessment Updated by [email or web address]: Ev Gloria on 02/24/19 10:43 am * Is the patient Alert and Oriented? Yes * PCP MIKO * Pharmacy [facility] * Preadmission Environment Home with Family * ADLs Independent * Other Equipment NONE * List name and contact numbers for known caregivers / representatives who currently or will assist patient after discharge: SHAMA,, * Community resources currently utilized None * Additional services required to return to the preadmission environment? Yes * Can the patient safely return to the preadmission environment? Yes * Has this patient been hospitalized within the prior 30 days at any hospital? No Coverage Notice Reviewer: [id number] Magy Richter Notice Issued Date-Time: 02/18/2019 13:35 Notice Type: Medicare Outpatient Observation Notice Notice Delivered To: Patient Relationship to Patient: Self Utility Plant Operative Name: Delivery Method: HAND - Hand Delivered Erinn Days: Prior Verbal Notification: Recipient Understood Notice: Recipient Signature: Yes Med Rec Note Co-signed by Attending: Coverage Notice Comment: ANTONI DISCUSSED WITH PATIENT AND HIS , SHAMA, AFTER VERBAL CONSENT OBTAINED. Last DP export: 02/24/19 9:50 Patient Name: MANUEL BEAVERS Page [phone] at 1405 All edits/amendments must be made on the electronic document DICTATION DATE: 02/28/191404 PASSENGER AGENT: BRITNEY 02/28/19 140 RPT#: [id number] DC DATE: STATUS: ADM IN [facility] [address] [place] [address] END OF REPORT
--- NOTE | 2019-02-28 14:23 | MORECARE ---
CASE MANAGEMENT DISCHARGE SUMMARY PATIENT: MANUEL BEAVERS UNIT: [id number] ADM DATE: 02/19/19 AGE: 78 : 41 SEX: M ROOM/BED: D.2106 AUTHOR: SALUD,DOC PHYSICIAN: REFERRING PHYSICIAN: ANDERSON DOMINGUEZ MD DATE OF SERVICE: 02/28/19 Discharge Plan Patient Name: MANUEL BEAVERS Facility: [facility]:[place] : 1940 Planned Disposition: Home with Home Health Anticipated Discharge Date: Discharge Date: Expected LOS: Initial Reviewer: [email or web address] Initial Review Date: 02/24/2019 Generated: 02/28/19 3:23 pm DCP- Discharge Planning Updated by [id number]: Ev Gloria on 02/24/19 9:[address] Patient Name: MANUEL BEAVERS Admission Status: ER Accout number: [id number] Admission Date: 02-19-2019 : 1940 Admission Diagnosis: Attending: MENA DOMINGUEZ Current LOS: 5 Anticipated DC Date: Planned Disposition: Primary Insurance: MEDICARE A & B Discharge Planning Comments: CM MET WITH PATIENT AND HIS SHAMA ABOUT DC PLANNING/NEEDS. HE CURRENTLY DOES NOT HAVE ANY EQUIPMENT OR SERVICES PRIOR TO HOSPITALIZATION. HE IS BEING SEEN BY PT AND USING A WALKER WITH THEM. I ANTICIPATE HE WILL NEED EQUIPMENT AND POSSIBLY REHAB VS HH. I SPOKE WITH HIM AND HIS ABOUT IT. THEY ARE UNSURE AT THIS POINT. IS INTERESTED IN [facility] IF NEEDS IT. I GAVE A LIST OF HH AGENCIES TO LOOK AT AND A CHOICE FORM. CM WILL CHECK BACK WITH THEM CLOSER TO DISCHARGE. Hazardous Materials Analyst: Ev Gloria DCPIA - Discharge Planning Initial Assessment Updated by [email or web address]: Ev Gloria on 02/24/19 10:43 am * Is the patient Alert and Oriented? Yes * PCP MIKO * Pharmacy [facility] * Preadmission Environment Home with Family * ADLs Independent * Other Equipment NONE * List name and contact numbers for known caregivers / representatives who currently or will assist patient after discharge: SHAMA,, * Community resources currently utilized None * Additional services required to return to the preadmission environment? Yes * Can the patient safely return to the preadmission environment? Yes * Has this patient been hospitalized within the prior 30 days at any hospital? No External Providers External Provider: [facility] Next Contact Date: 02/28/2019 Service Request Date: Service Type: Resolution: Reviewer: Comments: Coverage Notice Reviewer: [id number] Magy Richter Notice Issued Date-Time: 02/18/2019 13:35 Notice Type: Medicare Outpatient Observation Notice Notice Delivered To: Patient Relationship to Patient: Self Electronic Assembler Group Leader Name: Delivery Method: HAND - Hand Delivered Erinn Days: Prior Verbal Notification: Recipient Understood Notice: Recipient Signature: Yes Med Rec Note Co-signed by Attending: Coverage Notice Comment: ANTONI DISCUSSED WITH PATIENT AND HIS , SHAMA, AFTER VERBAL CONSENT OBTAINED. Last DP export: 02/28/19 1:06 Patient Name: MANUEL BEAVERS Page [phone] at 1423 All edits/amendments must be made on the electronic document DICTATION DATE: 02/28/191422 SALES REPRESENTATIVE [facility]: BRITNEY 02/28/19 142 RPT#: [id number] DC DATE: STATUS: ADM IN [facility] [address] [place] [address] END OF REPORT
--- NOTE | 2019-02-28 14:31 | MORECARE ---
CASE MANAGEMENT DISCHARGE SUMMARY PATIENT: MANUEL BEAVERS UNIT: [id number] ADM DATE: 02/19/19 AGE: 78 : 42 SEX: M ROOM/BED: D.2106 AUTHOR: SALUDDOC PHYSICIAN: REFERRING PHYSICIAN: ANDERSON DOMINGUEZ MD DATE OF SERVICE: 02/28/19 Discharge Plan Patient Name: MANUEL BEAVERS Facility: [facility]:[place] : 1940 Planned Disposition: Home with Home Health Anticipated Discharge Date: 03/01/19 Discharge Date: Expected LOS: 10 Initial Reviewer: [email or web address] Initial Review Date: 02/24/2019 Generated: 02/28/19 3:31 pm DCP- Discharge Planning Updated by [email or web address]: Ev Gloria on 02/24/19 9:[address] Patient Name: MANUEL BEAVERS Admission Status: ER Accout number: [id number] Admission Date: 02-19-2019 : 1940 Admission Diagnosis: Attending: MENA DOMINGUEZ Current LOS: 5 Anticipated DC Date: Planned Disposition: Primary Insurance: MEDICARE A & B Discharge Planning Comments: CM MET WITH PATIENT AND HIS SHAMA ABOUT DC PLANNING/NEEDS. HE CURRENTLY DOES NOT HAVE ANY EQUIPMENT OR SERVICES PRIOR TO HOSPITALIZATION. HE IS BEING SEEN BY PT AND USING A WALKER WITH THEM. I ANTICIPATE HE WILL NEED EQUIPMENT AND POSSIBLY REHAB VS HH. I SPOKE WITH HIM AND HIS ABOUT IT. THEY ARE UNSURE AT THIS POINT. IS INTERESTED IN [facility] IF NEEDS IT. I GAVE A LIST OF HH AGENCIES TO LOOK AT AND A CHOICE FORM. CM WILL CHECK BACK WITH THEM CLOSER TO DISCHARGE. Awning Finisher: Ev Gloria DCPIA - Discharge Planning Initial Assessment Updated by [email or web address]: Ev Gloria on 02/24/19 10:43 am * Is the patient Alert and Oriented? Yes * PCP MIKO * Pharmacy [facility] * Preadmission Environment Home with Family * ADLs Independent * Other Equipment NONE * List name and contact numbers for known caregivers / representatives who currently or will assist patient after discharge: SHAMA,, * Community resources currently utilized None * Additional services required to return to the preadmission environment? Yes * Can the patient safely return to the preadmission environment? Yes * Has this patient been hospitalized within the prior 30 days at any hospital? No External Providers External Provider: [facility] Next Contact Date: 02/28/2019 Service Request Date: Service Type: Resolution: Reviewer: Comments: Coverage Notice Reviewer: [email or web address] Magy Shamekakevin Richter Notice Issued Date-Time: 02/18/2019 13:35 Notice Type: Medicare Outpatient Observation Notice Notice Delivered To: Patient Relationship to Patient: Self Cognos Administrator Name: Delivery Method: HAND - Hand Delivered Erinn Days: Prior Verbal Notification: Recipient Understood Notice: Recipient Signature: Yes Med Rec Note Co-signed by Attending: Coverage Notice Comment: ANTONI DISCUSSED WITH PATIENT AND HIS , SHAMA, AFTER VERBAL CONSENT OBTAINED. Last DP export: 02/28/19 1:23 Patient Name: MANUEL BEAVERS Page [phone] at 1431 All edits/amendments must be made on the electronic document DICTATION DATE: 02/28/191430 POTATO SORTER: BRITNEY 02/28/19 143 RPT#: [id number] DC DATE: STATUS: ADM IN [facility] [address] [place] [address] END OF REPORT
--- NOTE | 2019-02-28 14:46 | MORECARE ---
CASE MANAGEMENT DISCHARGE SUMMARY PATIENT: MANUEL BEAVERS UNIT: [id number] ADM DATE: 02/19/19 AGE: 78 : 41 SEX: M ROOM/BED: D.2106 AUTHOR: SALUD,DOC PHYSICIAN: REFERRING PHYSICIAN: ANDERSON DOMINGUEZ MD DATE OF SERVICE: 02/28/19 Discharge Plan Patient Name: MANUEL BEAVERS Facility: [facility]:[place] : 1940 Planned Disposition: Home with Home Health Anticipated Discharge Date: 03/01/19 Discharge Date: Expected LOS: 10 Initial Reviewer: [id number] Initial Review Date: 02/24/2019 Generated: 02/28/19 3:46 pm Comments DCP- Discharge Planning Updated by [id number]: Earl Ochoa on 02/28/19 1:[address] Patient Name: MANUEL BEAVERS Encounter No: [id number] : 1940 Primary Insurance: MEDICARE A & B Anticipated DC Date: 03-01-2019 Planned Disposition: Home with Home Health External Planned Provider: [facility] DCP follow-up note: CM RECEIVED ORDER FOR HOME HEALTH. CM MET WITH PT AND SPOUSE IN ROOM TO DISCUSS DISCHARGE NEEDS AND PLANNING. MANUEL BEAVERS provided verbal consent to discuss current and ongoing needs with/in the presence of: SPOUSE SHAMA. CM DISCUSSED AVAILABILITY OF HOME HEALTH, REHAB SERVICES AND MEDICAL EQUIPMENT. PT AND SPOUSE WANT A WALKER FROM [facility] HAS HIM USING ONE HERE; THEY ALSO WANT HOME HEALTH WITH SAMANTHA PT'S SPOUSE HAS USED THEM IN THE PAST. SECOND CHOICE OF CARE IV HOME HEALTH. CHOICE SIGNED. SPOUSE TO TRANSPORT HOME AT DISCHARGE. IMPORTANT MESSAGE FROM MEDICARE PROVIDED AND EXPLAINED. CM CALLED [employer] [facility], , SPOKE TO LEAH WHO TOOK REFERRAL [employer] AND WILL PROCESS ORDER AND ARRANGE FOR HOSPITAL DELIVERY OF WALKER TO PT'S ROOM. CM FAXED REFERRAL AND ORDER INFORMATION TO [employer] AT [phone]. CM CALLED [employer], , SPOKE TO YOSEPH, PROVIDED REFERRAL INFORMATION. CM FAXED REFERRAL INFORMATION TO [facility], . PT AND SPOUSE NOTIFIED WHO DENIED FURTHER DISCHARGE NEEDS AT THIS TIME. [facility] TO DELIVER WALKER TO PT'S ROOM FOR DISCHARGE HOME. FOR DISCHARGE, NOTIFY [facility] AT [phone], FAX DISCHARGE INFORMATION TO [facility] AT [phone]. Earl Ochoa, CASE MANAGEMENT DCP- Discharge Planning Updated by [id number]: Ev Gloria on 02/24/19 9:[address] Patient Name: MANUEL BEAVERS Admission Status: ER Accout number: [id number] Admission Date: 02-19-2019 : 1940 Admission Diagnosis: Attending: MENA DOMINGUEZ Current LOS: 5 Anticipated DC Date: Planned Disposition: Primary Insurance: MEDICARE A & B Discharge Planning Comments: CM MET WITH PATIENT AND HIS SHAMA ABOUT DC PLANNING/NEEDS. HE CURRENTLY DOES NOT HAVE ANY EQUIPMENT OR SERVICES PRIOR TO HOSPITALIZATION. HE IS BEING SEEN BY PT AND USING A WALKER WITH THEM. I ANTICIPATE HE WILL NEED EQUIPMENT AND POSSIBLY REHAB VS HH. I SPOKE WITH HIM AND HIS ABOUT IT. THEY ARE UNSURE AT THIS POINT. IS [facility]ED IN [facility] IF NEEDS IT. I GAVE A LIST OF HH AGENCIES TO LOOK AT AND A CHOICE FORM. CM WILL CHECK BACK WITH THEM CLOSER TO DISCHARGE. Levee Superintendent: Ev Gloria DCPIA - Discharge Planning Initial Assessment Updated by [id number]: Ev Gloria on 02/24/19 10:43 am * Is the patient Alert and Oriented? Yes * PCP MIKO * Pharmacy [facility] * Preadmission Environment Home with Family * ADLs Independent * Other Equipment NONE * List name and contact numbers for known caregivers / representatives who currently or will assist patient after discharge: SHAMA,, * Community resources currently utilized None * Additional services required to return to the preadmission environment? Yes * Can the patient safely return to the preadmission environment? Yes * Has this patient been hospitalized within the prior 30 days at any hospital? No Coverage Notice Reviewer: [id number] Magy Richter Notice Issued Date-Time: 02/18/2019 13:35 Notice Type: Medicare Outpatient Observation Notice Notice Delivered To: Patient Relationship to Patient: Self Member Certification Manager Name: Delivery Method: HAND - Hand Delivered Erinn Days: Prior Verbal Notification: Recipient Understood Notice: Recipient Signature: Yes Med Rec Note Co-signed by Attending: Coverage Notice Comment: ANTONI DISCUSSED WITH PATIENT AND HIS , SHAMA, AFTER VERBAL CONSENT OBTAINED. Last DP export: 02/28/19 1:31 Patient Name: MANUEL BEAVERS Page [id number] at 1446 All edits/amendments must be made on the electronic document DICTATION DATE: 02/28/19 144 LAST PICKER: BRITNEY 02/28/191445 RPT#: [id number] DC DATE: STATUS: ADM IN [facility] [address] [place] [address] END OF REPORT
[2019-02-28 17:19] VITALS: BP 154/78
--- NOTE | 2019-02-28 18:17 | NUR ---
K+ 3.3 THIS MORNING SO COVERED PER PROTOCOL, RECHECK AND STILL 3.3 SO SECOND DOSE GIVEN. RECHECK NOW AT 4.0 SO CHECK AGAIN IN AM.
--- NOTE | 2019-02-28 19:22 | NUR ---
RECEIVE LAYING IN BED WITH EYES CLOSED. EASILY AROUSED WITH VERBAL STIMULI. UP WITH WALKER AND ASSIST. RIGHT LOWER LEG EDEMA. DSG TO LOWER EXTREMITY CDI. ALSO DSG TO LEFT FOOT GREAT TOE CDI. TELEMETRY IN PLACE. REMAINS ON 1500CC FLUID RESTRICTION. DENIES ANY NEEDS.
[2019-02-28 20:30] VITALS: BP 141/54
[2019-03-01 00:30] VITALS: BP 160/89
[2019-03-01 05:10] LABS: BASOPHILS 0.4 % (0-2); EOSINOPHILS 5.1 % (0-7); HEMATOCRIT 34.3 % (42.0-54.0); HEMOGLOBIN 11.2 g/dL (13.5-17.5); IMMATURE GRANULOCYTES 0.5 % (0-5); LYMPHOCYTES 20.1 % (15-50); MCH 31.7 pg (26.0-34.0); MCHC 32.7 g/dL (31.0-37.0); MCV 97.2 fL (80.0-100.0); MEAN PLATELET VOLUME 10.2 fL (7.4-10.4); MONOCYTES 9.3 % (2-11); NEUTROPHILS 64.6 % (40-80); PLATELET COUNT 290 10x3/uL (130-400); RBC 3.53 10x6/uL (4.20-6.10); WBC 9.7 10x3/uL (4.8-10.8)
[2019-03-01 05:17] LABS: ANION GAP 11.1 mmol/L (8-16); CALCIUM 8.2 mg/dL (8.5-10.1); CARBON DIOXIDE 27.1 mmol/L (21.0-32.0); CREATININE - SERUM 1.1 mg/dL (0.6-1.3)
[2019-03-01 05:22] LABS: POTASSIUM - SERUM 3.2 mmol/L (3.5-5.1)
[2019-03-01 06:42] VITALS: BP 156/79
--- NOTE | 2019-03-01 07:31 | NUR ---
PT RESTING PEACEFULLY WHEN I ENTERED ROOM, RESPIRATIONS EVEN/REGULAR AND UNLABORED. NO SIGNS OR SYMPTOMS OF ACUTE DISTRESS NOTED AT THIS TIME. NO FAMILY PRESENT AT BEDISDE. CL IN REACH, SRX2.
[2019-03-01 08:06] VITALS: BP 141/60
--- NOTE | 2019-03-01 09:57 | NUR ---
PT AWAKE AND ORIENTED, SITTING ON SIDE OF BED. AT BEDSIDE. TOOK PILLS WITHOUT DIFFICULTY. CL IN REACH, SRX2.
--- NOTE | 2019-03-01 11:07 | NUR ---
I have reviewed this patient and I concur with the Shift Assessment completed by the Licensed Practical Nurse today this shift.
[2019-03-01 11:33] VITALS: BP 132/70
--- NOTE | 2019-03-01 12:33 | NUR ---
AT BEDSIDE, NO COMPLAINTS/CONCERNS. REQUESTS LEG DRESSING CHANGED, WILL ACCOMIDATE. CL IN REACH, SRX2.
[2019-03-01 15:31] VITALS: BP 142/63
--- NOTE | 2019-03-01 18:30 | NUR ---
PT GOT UP AND TO THE SHOWER MINIMAL ASSIST. UPON INSPECTING WOUNDS ON LL, THE RL WOUND APPEARED TO BE MOIST AND HAD GREEN DISCHARGE, CONFIRED WITH RN AND DECIDED THE WOUND SHOULD BE LEFT OUT TO AIR TONIGHT, SINCE COMPARED TO PREVIUS NOTES STATING IT WAS PINK/RED, SCABBY AND HEALING, IT WAS WORSE APPEARNG DAMP. PT BACK IN BED. CL IN REACH, SRX2, NO AT BEDSIDE.
--- NOTE | 2019-03-01 19:45 | NUR ---
REPORT RECIEVD AND ROUNDING COMPLETE, PATIENT LAYING IN BED IN SUPINE POSITION. EYES CLOSED BREATHING EVEN AND SHALLOW. PATIENT DOES NOT HAVE A PIV AT THIS TIME. DAY NURSE STATES THAT IS AWARE AND OK WITH HIM NO HVAING ONE. MELECIO HAS A LARGE SORE ON RIGHT ANKLE AREA, PATIENT AND DAY NURSE STATE NO DRESSING IS NEEDED TONIGHT AND THAT IT WOULD BE REDRESSED IN THE AM. PATIENT IS SHOWING NO S/SX OF DISTRESS AT THIS TIME. CALL LIGHT WITHIN REACH AND BED IN LOWEST LOCKED POSITION. NO NEEDS AT THIS TIME.
[2019-03-01 20:30] VITALS: BP 133/69
[2019-03-02 00:26] VITALS: BP 152/86
[2019-03-02 05:08] LABS: BASOPHILS 0.4 % (0-2); EOSINOPHILS 3.8 % (0-7); HEMATOCRIT 35.9 % (42.0-54.0); HEMOGLOBIN 11.7 g/dL (13.5-17.5); IMMATURE GRANULOCYTES 0.5 % (0-5); MCH 31.4 pg (26.0-34.0); MCHC 32.6 g/dL (31.0-37.0); MCV 96.2 fL (80.0-100.0); MONOCYTES 9.2 % (2-11); NEUTROPHILS 67.1 % (40-80); PLATELET COUNT 310 10x3/uL (130-400); RBC 3.73 10x6/uL (4.20-6.10); RDW 13.7 % (11.5-14.5); WBC 10.3 10x3/uL (4.8-10.8)
[2019-03-02 05:24] LABS: ANION GAP 11.4 mmol/L (8-16); CALCIUM 8.5 mg/dL (8.5-10.1); CREATININE - SERUM 1.2 mg/dL (0.6-1.3); POTASSIUM - SERUM 3.4 mmol/L (3.5-5.1)
[2019-03-02 10:28] VITALS: BP 135/67
[2019-03-02 14:02] VITALS: BP 126/80
[2019-03-02 17:10] VITALS: BP 152/95
--- NOTE | 2019-03-02 19:10 | NUR ---
ASSISTED WITH URINAL BED LOW AND LOCKED CALL LIGHT WITH PT DENIES OTHER NEEDS AT THIS TIME
[2019-03-02 20:29] VITALS: BP 131/81
[2019-03-03 00:30] VITALS: BP 155/88
--- NOTE | 2019-03-03 01:23 | NUR ---
I have reviewed this patient and I concur with the Shift Assessment completed by the Licensed Practical Nurse today this shift.
[2019-03-03 04:03] VITALS: BP 138/69
[2019-03-03 06:04] LABS: BASOPHILS 0.3 % (0-2); EOSINOPHILS 3.4 % (0-7); HEMATOCRIT 35.1 % (42.0-54.0); IMMATURE GRANULOCYTES 0.4 % (0-5); LYMPHOCYTES 19.7 % (15-50); MCHC 34.2 g/dL (31.0-37.0); MCV 96.4 fL (80.0-100.0); MEAN PLATELET VOLUME 10.5 fL (7.4-10.4); MONOCYTES 10.8 % (2-11); NEUTROPHILS 65.4 % (40-80); PLATELET COUNT 320 10x3/uL (130-400); RBC 3.64 10x6/uL (4.20-6.10); RDW 13.9 % (11.5-14.5)
[2019-03-03 06:27] LABS: ANION GAP 11.8 mmol/L (8-16); CALCIUM 8.4 mg/dL (8.5-10.1); CARBON DIOXIDE 31.8 mmol/L (21.0-32.0); CREATININE - SERUM 1.2 mg/dL (0.6-1.3); POTASSIUM - SERUM 3.6 mmol/L (3.5-5.1)
--- NOTE | 2019-03-03 07:55 | NUR ---
PATIENT IS AWAKE AND ALERT. DENIES ANY NEEDS AT THIS TIME.
[2019-03-03 08:40] VITALS: BP 137/68
--- NOTE | 2019-03-03 10:04 | NUR ---
DRESSING CHANGE COMPLETED ON RIGHT CALF AND TOE.
[2019-03-03] MEDS ORDERED: VIBRAMYCIN 100100 MG PO (12:15)
[2019-03-03] MEDS ORDERED: BUMEX2 MG PO (12:17)
[2019-03-03] MEDS ORDERED: PROTONIX40 MG PO (12:17)
[2019-03-03] MEDS ORDERED: MIRALAX17 GM PO (12:17)
[2019-03-03] MEDS ORDERED: CYMBALTA30 MG PO (12:18)
[2019-03-03 13:01] VITALS: BP 126/82
--- NOTE | 2019-03-03 13:27 | NUR ---
OFFERED PT FLU SHOT, REPORTS DOES NOT TAKE FLU SHOTS.
--- NOTE | 2019-03-03 14:45 | MORECARE ---
CASE MANAGEMENT DISCHARGE SUMMARY PATIENT: MANUEL BEAVERS UNIT: [id number] ADM DATE: 02/19/19 AGE: 78 : 41 SEX: M ROOM/BED: D.2106 AUTHOR: SALUD,DOC PHYSICIAN: REFERRING PHYSICIAN: ANDERSON DOMINGUEZ MD DATE OF SERVICE: 03/03/19 Discharge Plan Patient Name: MANUEL BEAVERS Facility: [facility]:[place] : 1940 Planned Disposition: Home with Home Health Anticipated Discharge Date: 03/03/19 Discharge Date: Expected LOS: 12 Initial Reviewer: [id number] Initial Review Date: 02/24/2019 Generated: 03/03/19 3:44 pm DCP- Discharge Planning Updated by [email or web address]: Earl Ochoa on 02/28/19 1:[address] Patient Name: MANUEL BEAVERS Encounter No: [id number] : 1940 Primary Insurance: MEDICARE A & B Anticipated DC Date: 03-01-2019 Planned Disposition: Home with Home Health External Planned Provider: [facility] DCP follow-up note: CM RECEIVED ORDER FOR HOME HEALTH. CM MET WITH PT AND SPOUSE IN ROOM TO DISCUSS DISCHARGE NEEDS AND PLANNING. MANUEL BEAVERS provided verbal consent to discuss current and ongoing needs with/in the presence of: SPOUSE SHAMA. CM DISCUSSED AVAILABILITY OF HOME HEALTH, REHAB SERVICES AND MEDICAL EQUIPMENT. PT AND SPOUSE WANT A WALKER FROM [facility] HAS HIM USING ONE HERE; THEY ALSO WANT HOME HEALTH WITH [facility] PT'S SPOUSE HAS USED THEM IN THE PAST. SECOND CHOICE OF CARE IV HOME HEALTH. CHOICE SIGNED. SPOUSE TO TRANSPORT HOME AT DISCHARGE. IMPORTANT MESSAGE FROM MEDICARE PROVIDED AND EXPLAINED. CM CALLED [facility] [facility], , SPOKE TO LEAH WHO TOOK REFERRAL [employer] AND WILL PROCESS ORDER AND ARRANGE FOR HOSPITAL DELIVERY OF WALKER TO PT'S ROOM. CM FAXED REFERRAL AND ORDER INFORMATION TO [employer] AT [phone]. CM CALLED [employer], , SPOKE TO YOSEPH, PROVIDED REFERRAL INFORMATION. CM FAXED REFERRAL INFORMATION TO [employer] [facility], . PT AND SPOUSE NOTIFIED WHO DENIED FURTHER DISCHARGE NEEDS AT THIS TIME. O'FUENTES TO DELIVER WALKER TO PT'S ROOM FOR DISCHARGE HOME. FOR DISCHARGE, NOTIFY [facility] AT [phone], FAX DISCHARGE INFORMATION TO [facility] AT [phone]. Earl Ochoa, CASE MANAGEMENT DCP- Discharge Planning Updated by [id number]: Ev Gloria on 02/24/19 9:[address] Patient Name: MANUEL BEAVERS Admission Status: ER Accout number: [id number] Admission Date: 02-19-2019 : 1940 Admission Diagnosis: Attending: MENA DOMINGUEZ Current LOS: 5 Anticipated DC Date: Planned Disposition: Primary Insurance: MEDICARE A & B Discharge Planning Comments: CM MET WITH PATIENT AND HIS SHAMA ABOUT DC PLANNING/NEEDS. HE CURRENTLY DOES NOT HAVE ANY EQUIPMENT OR SERVICES PRIOR TO HOSPITALIZATION. HE IS BEING SEEN BY PT AND USING A WALKER WITH THEM. I ANTICIPATE HE WILL NEED EQUIPMENT AND POSSIBLY REHAB VS HH. I SPOKE WITH HIM AND HIS ABOUT IT. THEY ARE UNSURE AT THIS POINT. IS INTERESTED IN [facility] IF NEEDS IT. I GAVE A LIST OF HH AGENCIES TO LOOK AT AND A CHOICE FORM. CM WILL CHECK BACK WITH THEM CLOSER TO DISCHARGE. 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 Yes * PCP MIKO * Pharmacy [facility] * Preadmission Environment Home with Family * ADLs Independent * Other Equipment NONE * List name and contact numbers for known caregivers / representatives who currently or will assist patient after discharge: SHAMA,, * Community resources currently utilized None * Additional services required to return to the preadmission environment? Yes * Can the patient safely return to the preadmission environment? Yes * Has this patient been hospitalized within the prior 30 days at any hospital? No Coverage Notice Reviewer: [id number] Magy Myles [place] Notice Issued Date-Time: 02/18/2019 13:35 Notice Type: Medicare Outpatient Observation Notice Notice Delivered To: Patient Relationship to Patient: Self Customer Manager Name: Delivery Method: HAND - Hand Delivered Erinn Days: Prior Verbal Notification: Recipient Understood Notice: Recipient Signature: Yes Med Rec Note Co-signed by Attending: Coverage Notice Comment: ANTONI DISCUSSED WITH PATIENT AND HIS , SHAMA, AFTER VERBAL CONSENT OBTAINED. Reviewer: [id number] Magy Ochoa Notice Issued Date-Time: 02/28/2019 12:20 Notice Type: Patient Choice Letter Notice Delivered To: Family Member Relationship to Patient: Spouse Customer Manager Name: SHAMA BEAVERS Delivery Method: HAND - Hand Delivered Erinn Days: Prior Verbal Notification: Recipient Understood Notice: Yes Recipient Signature: Yes Med Rec Note Co-signed by Attending: Coverage Notice Comment: [facility] Reviewer: [id number] Magy Ochoa Notice Issued Date-Time: 02/28/2019 12:20 Notice Type: IM Discharge Notice Notice Delivered To: Family Member Relationship to Patient: Spouse Customer Manager Name: SHAMA BEAVERS Delivery Method: HAND - Hand Delivered Erinn Days: Prior Verbal Notification: Recipient Understood Notice: Yes Recipient Signature: Yes Med Rec Note Co-signed by Attending: Coverage Notice Comment: Reviewer: MARIA DOLORES Ochoa Notice Issued Date-Time: 03/03/2019 12:50 Notice Type: IM Discharge Notice Notice Delivered To: Family Member Relationship to Patient: Spouse Customer Manager Name: SHAMA BEAVERS Delivery Method: HAND - Hand Delivered Erinn Days: Prior Verbal Notification: Recipient Understood Notice: Yes Recipient Signature: Yes Med Rec Note Co-signed by Attending: Coverage Notice Comment: Last DP export: 02/28/19 1:46 Patient Name: MANUEL BEAVERS Page [id number] at 1445 All edits/amendments must be made on the electronic document DICTATION DATE: 03/03/191443 WASH TEST CHECKER: BRITNEY 03/03/19 1444 RPT#: [id number] SC DATE: STATUS: ADM IN [facility] [address] [place] [address] END OF REPORT
--- NOTE | 2019-03-03 14:52 | MORECARE ---
CASE MANAGEMENT DISCHARGE SUMMARY PATIENT: MANUEL BEAVERS UNIT: [id number] ADM DATE: 02/19/19 AGE: 78 : 41 SEX: M ROOM/BED: D.2106 AUTHOR: SALUD,DOC PHYSICIAN: REFERRING PHYSICIAN: ANDERSON DOMINGUEZ MD DATE OF SERVICE: 03/03/19 Discharge Plan Patient Name: MANUEL BEAVERS Facility: [facility]:[place] : 1940 Planned Disposition: Home with Home Health Anticipated Discharge Date: 03/03/19 Discharge Date: Expected LOS: 12 Initial Reviewer: [id number] Initial Review Date: 02/24/2019 Generated: 03/03/19 3:52 pm Comments DCP- Discharge Planning Updated by [id number]: Earl Ochoa on 03/03/19 1:[address] Patient Name: MANUEL BEAVERS Encounter No: [id number] : 1940 Primary Insurance: MEDICARE A & B Anticipated DC Date: 03-03-2019 Planned Disposition: Home with Home Health External Planned Provider: [facility] DCP follow-up note: CM RECEIVED DISCHARGE ORDERS, MET WITH PT AND SPOUSE IN ROOM, THEY HAVE WALKER FROM [facility] IN ROOM AND ARE READY TO DISCHARGE HOME WITH HOME HEALTH. SPOUSE TO TRANSPORT HOME AT DISCHARGE. IMPORTANT MESSAGE FROM MEDICARE PROVIDED AND EXPLAINED. CM CALLED [facility], , SPOKE TO YOSEPH, PROVIDED DISCHARGE INFORMATION. CM FAXED DISCHARGE INFORMATION TO [facility] AT [phone]. Earl Ochoa, CASE JASON DCP- Discharge Planning Updated by [id number]: Earl Ochoa on 02/28/19 1:[address] Patient Name: MANUEL BEAVERS Encounter No: [id number] : 1940 Primary Insurance: MEDICARE A & B Anticipated DC Date: 03-01-2019 Planned Disposition: Home with Home Health External Planned Provider: [facility] DCP follow-up note: CM RECEIVED ORDER FOR HOME HEALTH. CM MET WITH PT AND SPOUSE IN ROOM TO DISCUSS DISCHARGE NEEDS AND PLANNING. MANUEL BEAVERS provided verbal consent to discuss current and ongoing needs with/in the presence of: SPOUSE SHAMA. CM DISCUSSED AVAILABILITY OF HOME HEALTH, REHAB SERVICES AND MEDICAL EQUIPMENT. PT AND SPOUSE WANT A WALKER FROM [facility] HAS HIM USING ONE HERE; THEY ALSO WANT HOME HEALTH WITH [facility] PT'S SPOUSE HAS USED THEM IN THE PAST. SECOND CHOICE OF CARE IV HOME HEALTH. CHOICE SIGNED. SPOUSE TO TRANSPORT HOME AT DISCHARGE. IMPORTANT MESSAGE FROM MEDICARE PROVIDED AND EXPLAINED. CM [facility]ED [facility], , SPOKE TO LEAH WHO TOOK REFERRAL [employer] AND WILL PROCESS ORDER AND ARRANGE FOR HOSPITAL DELIVERY OF WALKER TO PT'S ROOM. CM FA[facility] AT [phone]. [facility], , SPOKE TO YOSEPH, PROVIDED REFERRAL INFORMATION. CM [facility], . PT AND SPOUSE NOTIFIED WHO DENIED FURTHER DISCHARGE NEEDS AT THIS TIME. OFUENTES TO DELIVER WALKER TO PT'S ROOM FOR DISCHARGE HOME. FOR DISCHARGE, NOTIFY [facility] AT [phone], FAX DISCHARGE INFORMATION TO [facility] AT [phone]. Earl Ochoa, CASE MANAGEMENT DCP- Discharge Planning Updated by [id number]: Ev Gloria on 02/24/19 9:[address] Patient Name: MANUEL BEAVERS Admission Status: ER Accout number: [id number] Admission Date: 02-19-2019 : 1940 Admission Diagnosis: Attending: MENA DOMINGUEZ Current LOS: 5 Anticipated DC Date: Planned Disposition: Primary Insurance: MEDICARE A & B Discharge Planning Comments: CM MET WITH PATIENT AND HIS SHAMA ABOUT DC PLANNING/NEEDS. HE CURRENTLY DOES NOT HAVE ANY EQUIPMENT OR SERVICES PRIOR TO HOSPITALIZATION. HE IS BEING SEEN BY PT AND USING A WALKER WITH THEM. I ANTICIPATE HE WILL NEED EQUIPMENT AND POSSIBLY REHAB VS HH. I SPOKE WITH HIM AND HIS ABOUT IT. THEY ARE UNSURE AT THIS POINT. IS INTERESTED IN [facility] IF NEEDS IT. I GAVE A LIST OF HH AGENCIES TO LOOK AT AND A CHOICE FORM. CM WILL CHECK BACK WITH THEM CLOSER TO DISCHARGE. Cryptanalyst: Ev Gloria DCPIA - Discharge Planning Initial Assessment Updated by [email or web address]: Ev Gloria on 02/24/19 10:43 am * Is the patient Alert and Oriented? Yes * PCP MIKO * Pharmacy [facility] * Preadmission Environment Home with Family * ADLs Independent * Other Equipment NONE * List name and contact numbers for known caregivers / representatives who currently or will assist patient after discharge: SEAN SESAY, * Community resources currently utilized None * Additional services required to return to the preadmission environment? Yes * Can the patient safely return to the preadmission environment? Yes * Has this patient been hospitalized within the prior 30 days at any hospital? No Coverage Notice Reviewer: [id number] Ochoa Notice Issued Date-Time: 03/03/2019 12:50 Notice Type: IM Discharge Notice Notice Delivered To: Family Member Relationship to Patient: Spouse Delicatessen Slicer Name: SHAMA BEAVERS Delivery Method: HAND - Hand Delivered Erinn Days: Prior Verbal Notification: Recipient Understood Notice: Yes Recipient Signature: Yes Med Rec Note Co-signed by Attending: Coverage Notice Comment: Reviewer: MARIA DOLORES Ochoa Notice Issued Date-Time: 02/28/2019 12:20 Notice Type: IM Discharge Notice Notice Delivered To: Family Member Relationship to Patient: Spouse Delicatessen Slicer Name: SHAMA BEAVERS Delivery Method: HAND - Hand Delivered Erinn Days: Prior Verbal Notification: Recipient Understood Notice: Yes Recipient Signature: Yes Med Rec Note Co-signed by Attending: Coverage Notice Comment: Reviewer: [id number] Magy Richter Notice Issued Date-Time: 02/18/2019 13:35 Notice Type: Medicare Outpatient Observation Notice Notice Delivered To: Patient Relationship to Patient: Self Delicatessen Slicer Name: Delivery Method: HAND - Hand Delivered Erinn Days: Prior Verbal Notification: Recipient Understood Notice: Recipient Signature: Yes Med Rec Note Co-signed by Attending: Coverage Notice Comment: ANTONI DISCUSSED WITH PATIENT AND HIS , SHAMA, AFTER VERBAL CONSENT OBTAINED. Reviewer: [id number] Ochoa Notice Issued Date-Time: 02/28/2019 12:20 Notice Type: Patient Choice Letter Notice Delivered To: Family Member Relationship to Patient: Spouse Delicatessen Slicer Name: SHAMA BEAVERS Delivery Method: HAND - Hand Delivered Erinn Days: Prior Verbal Notification: Recipient Understood Notice: Yes Recipient Signature: Yes Med Rec Note Co-signed by Attending: Coverage Notice Comment: [facility] Last DP export: 03/03/19 1:45 Patient Name: MANUEL BEAVERS Page [id number] at 1452 All edits/amendments must be made on the electronic document DICTATION DATE: 03/03/191451 HARDWOOD FLOOR LAYER: BRITNEY 03/03/191451 RPT#: [id number] DC DATE: STATUS: ADM IN [facility] [address] [place] [address] END OF REPORT
--- NOTE | 2019-03-03 15:29 | NUR ---
PATIENT HAS BEEN DISCHARGED. ALL DISCHARGE TEACHING HAS BEEN DONE AND PAPERS SIGNED. ALL PATIENT BELONGINGS HAVE BEEN REMOVED FROM THE ROOM AND BROUGHT HOME BY THE PATIENT.
--- NOTE | 2019-03-03 17:09 | MORECARE ---
CASE MANAGEMENT DISCHARGE SUMMARY PATIENT: MANUEL BEAVERS UNIT: [id number] ADM DATE: 02/19/19 AGE: 78 : 41 SEX: M ROOM/BED: D.2106 AUTHOR: SALUD,DOC PHYSICIAN: REFERRING PHYSICIAN: ANDERSON DOMINGUEZ MD DATE OF SERVICE: 03/03/19 Discharge Plan Patient Name: MANUEL BEAVERS Facility: [facility]:[place] : 1940 Planned Disposition: Home with Home Health Anticipated Discharge Date: 03/03/19 Discharge Date: 03/03/2019 Expected LOS: 12 Initial Reviewer: [id number] Initial Review Date: 02/24/2019 Generated: 03/03/19 6:08 pm Comments DCP- Discharge Planning Updated by [id number]: Ev Gloria on 03/03/19 3:[address] Patient Name: MANUEL EBAVERS Encounter No: [id number] : 1940 Primary Insurance: MEDICARE A & B Anticipated DC Date: 03-03-2019 Planned Disposition: Home with Home Health External Planned Provider: [facility] DCP follow-up note: CM RECEIVED DISCHARGE ORDERS, MET WITH PT AND SPOUSE IN ROOM, THEY HAVE WALKER FROM [facility] IN ROOM AND ARE READY TO DISCHARGE HOME WITH HOME HEALTH. SPOUSE TO TRANSPORT HOME AT DISCHARGE. IMPORTANT MESSAGE FROM MEDICARE PROVIDED AND EXPLAINED. CM CALLED [facility], , SPOKE TO YOSEPH, PROVIDED DISCHARGE INFORMATION. CM FAXED DISCHARGE INFORMATION TO [facility] AT [phone]. Earl Ochoa, CASE MANAGEMENT Appended by Ev Gloria on 03/03/2019 16:59 INSPECTOR AND CLERK: DME ORDER SIGNED BY DR. TEAGUE AND FAXED TO [facility]. IMAGE SCANNED. DCP- Discharge Planning Updated by [email or web address]: Earl Ochoa on 02/28/19 1:[address] Patient Name: MANUEL BEAVERS Encounter No: [id number] : 1940 Primary Insurance: MEDICARE A & B Anticipated DC Date: 03-01-2019 Planned Disposition: Home with Home Health External Planned Provider: [facility] DCP follow-up note: CM RECEIVED ORDER FOR HOME HEALTH. CM MET WITH PT AND SPOUSE IN ROOM TO DISCUSS DISCHARGE NEEDS AND PLANNING. MANUEL BEAVERS provided verbal consent to discuss current and ongoing needs with/in the presence of: SPOUSE SHAMA. CM DISCUSSED AVAILABILITY OF HOME HEALTH, REHAB SERVICES AND MEDICAL EQUIPMENT. PT AND SPOUSE WANT A WALKER FROM [facility] HAS HIM USING ONE HERE; THEY ALSO WANT HOME HEALTH WITH [facility] PT'S SPOUSE HAS USED THEM IN THE PAST. SECOND CHOICE OF [facility] HOME [facility]. CHOICE SIGNED. SPOUSE TO TRANSPORT HOME AT DISCHARGE. IMPORTANT MESSAGE FROM MEDICARE PROVIDED AND EXPLAINED. CM CALLED [facility], , SPOKE TO LEAH WHO TOOK REFERRAL [facility] AND WILL PROCESS ORDER AND ARRANGE FOR HOSPITAL DELIVERY OF WALKER TO PT'S ROOM. CM FAXED REFERRAL AND ORDER INFORMATION TO [facility] AT [phone]. CM CALLED [facility], , SPOKE TO YOSEPH, PROVIDED REFERRAL INFORMATION. CM FAXED REFERRAL INFORMATION TO [facility], . PT AND SPOUSE NOTIFIED WHO DENIED FURTHER DISCHARGE NEEDS AT THIS TIME. [facility] TO DELIVER WALKER TO PT'S ROOM FOR DISCHARGE HOME. FOR DISCHARGE, NOTIFY [facility] AT [phone], FAX DISCHARGE INFORMATION TO [facility] AT [phone]. Earl Ochoa, CASE MANAGEMENT DCP- Discharge Planning Updated by [id number]: Ev Gloria on 02/24/19 9:[address] Patient Name: MANUEL BEAVERS Admission Status: ER Accout number: [id number] Admission Date: 02-19-2019 : 1940 Admission Diagnosis: Attending: MENA DOMINGUEZ Current LOS: 5 Anticipated DC Date: Planned Disposition: Primary Insurance: MEDICARE A & B Discharge Planning Comments: CM MET WITH PATIENT AND HIS SHAMA ABOUT DC PLANNING/NEEDS. HE CURRENTLY DOES NOT HAVE ANY EQUIPMENT OR SERVICES PRIOR TO HOSPITALIZATION. HE IS BEING SEEN BY PT AND USING A WALKER WITH THEM. I ANTICIPATE HE WILL NEED EQUIPMENT AND POSSIBLY REHAB VS HH. I SPOKE WITH HIM AND HIS ABOUT IT. THEY ARE UNSURE AT THIS POINT. IS INTERESTED IN [facility] IF NEEDS IT. I GAVE A LIST OF HH AGENCIES TO LOOK AT AND A CHOICE FORM. CM WILL CHECK BACK WITH THEM CLOSER TO DISCHARGE. Human Resources Recruiter: Ev Gloria DCPIA - Discharge Planning Initial Assessment Updated by [id number]: Ev Gloria on 02/24/19 10:43 am * Is the patient Alert and Oriented? Yes * PCP MIKO * Pharmacy [facility] * Preadmission Environment Home with Family * ADLs Independent * Other Equipment NONE * List name and contact numbers for known caregivers / representatives who currently or will assist patient after discharge: SEAN SESAY, * Community resources currently utilized None * Additional services required to return to the preadmission environment? Yes * Can the patient safely return to the preadmission environment? Yes * Has this patient been hospitalized within the prior 30 days at any hospital? No Coverage Notice Reviewer: [id number] Magy Richter Notice Issued Date-Time: 02/18/2019 13:35 Notice Type: Medicare Outpatient Observation Notice Notice Delivered To: Patient Relationship to Patient: Self City Marshal Name: Delivery Method: HAND - Hand Delivered Erinn Days: Prior Verbal Notification: Recipient Understood Notice: Recipient Signature: Yes Med Rec Note Co-signed by Attending: Coverage Notice Comment: CORRALES DISCUSSED WITH PATIENT AND HIS , SHAMA, AFTER VERBAL CONSENT OBTAINED. Reviewer: MARIA DOLORES Ochoa Notice Issued Date-Time: 02/28/2019 12:20 Notice Type: Patient Choice Letter Notice Delivered To: Family Member Relationship to Patient: Spouse City Marshal Name: SHAMA BEAVERS Delivery Method: HAND - Hand Delivered Erinn Days: Prior Verbal Notification: Recipient Understood Notice: Yes Recipient Signature: Yes Med Rec Note Co-signed by Attending: Coverage Notice Comment: [facility] NO Reviewer: [id number] Ochoa Notice Issued Date-Time: 02/28/2019 12:20 Notice Type: IM Discharge Notice Notice Delivered To: Family Member Relationship to Patient: Spouse City Marshal Name: SHAMA BEAVERS Delivery Method: HAND - Hand Delivered Erinn Days: Prior Verbal Notification: Recipient Understood Notice: Yes Recipient Signature: Yes Med Rec Note Co-signed by Attending: Coverage Notice Comment: Reviewer: MARIA DOLORES Ochoa Notice Issued Date-Time: 03/03/2019 12:50 Notice Type: IM Discharge Notice Notice Delivered To: Family Member Relationship to Patient: Spouse City Marshal Name: SHAMA BEAVERS Delivery Method: HAND - Hand Delivered Erinn Days: Prior Verbal Notification: Recipient Understood Notice: Yes Recipient Signature: Yes Med Rec Note Co-signed by Attending: Coverage Notice Comment: Last DP export: 03/03/19 1:52 Patient Name: MANUEL BEAVERS Page [id number] at 1709 All edits/amendments must be made on the electronic document DICTATION DATE: 03/03/191707 DEVELOPMENT ASSISTANT: BRITNEY 03/03/191707 RPT#: [id number] DC DATE:03/03/19 STATUS: DIS IN [facility] [address] [place] [address] END OF REPORT
== END 2019-03-03 15:31 | disposition home health service (06) | DRG 391 ==
LOC: D.ER 13:49 → OBSVTIME 18:10 → D.M2 18:10
PROVIDERS: Family Medicine; Internal Medicine Nephrology; Internal Medicine Pulmonary Disease; ADMIT Emergency Medicine; ATTEND Emergency Medicine
DX: A08.4 Viral intestinal infection, unspecified (principal); I50.33 Acute on chronic diastolic (congestive) heart failure; L97.219 Non-pressure chronic ulcer of right calf with unspecified severity; I48.20 Chronic atrial fibrillation, unspecified; N17.9 Acute kidney failure, unspecified; J98.11 Atelectasis; L03.115 Cellulitis of right lower limb; E11.65 Type 2 diabetes mellitus with hyperglycemia; E11.622 Type 2 diabetes mellitus with other skin ulcer; M19.90 Unspecified osteoarthritis, unspecified site; L40.9 Psoriasis, unspecified; E87.6 Hypokalemia; K52.9 Noninfective gastroenteritis and colitis, unspecified; K21.9 Gastro-esophageal reflux disease without esophagitis; I27.20 Pulmonary hypertension, unspecified; K57.90 Diverticulosis of intestine, part unspecified, without perforation or abscess without bleeding; N28.1 Cyst of kidney, acquired; D50.9 Iron deficiency anemia, unspecified; N50.89 Other specified disorders of the male genital organs; I11.0 Hypertensive heart disease with heart failure

== ENCOUNTER → 2019-12-02 10:05 | Outpatient (CLI) | payer MEDICARE, BC ==
[2019-02-18 13:40] VITALS: BMI 30.8
[~2019-12-02 10:05] MED LIST changes: +BUMEX2 MG PO; +CYMBALTA30 MG PO; +MIRALAX17 GM PO; +PROTONIX40 MG PO; +VIBRAMYCIN 100100 MG PO
== END | disposition home or self-care (01) ==
LOC: D.HCCECHO 10:05
PROVIDERS: ATTEND Internal Medicine Cardiovascular Disease
DX: I48.0 Paroxysmal atrial fibrillation (principal)

== ENCOUNTER 2020-05-31 21:45 | Inpatient (IN) | payer MEDICARE, BC ==
[~2020-05-31] VITALS: Ht 182.9 cm; Wt 106.7 kg
[2020-05-31 22:39] LABS: BASOPHILS 0.3 % (0-2); EOSINOPHILS 2.7 % (0-7); HEMATOCRIT 25.8 % (42.0-54.0); HEMOGLOBIN 8.4 g/dL (13.5-17.5); IMMATURE GRANULOCYTES 0.6 % (0-5); LYMPHOCYTE ABS# 2.41 10x3/uL (1.32-3.57); LYMPHOCYTES 20.6 % (15-50); MCH 32.1 pg (26.0-34.0); MCHC 32.6 g/dL (31.0-37.0); MCV 98.5 fL (80.0-100.0); MEAN PLATELET VOLUME 10.4 fL (7.4-10.4); MONOCYTES 8.1 % (2-11); NEUTROPHIL ABS# 7.89 10x3/uL (1.78-5.38); NEUTROPHILS 67.7 % (40-80); RBC 2.62 10x6/uL (4.20-6.10); RDW 16.7 % (11.5-14.5); WBC 11.7 10x3/uL (4.8-10.8)
[2020-05-31 22:45] LABS: CALC OSMOLALITY 295 mosm/kg (275-300); CALCIUM 8.8 mg/dL (8.5-10.1); CARBON DIOXIDE 19.4 mmol/L (21.0-32.0); CHLORIDE - SERUM 104 mmol/L (98-107); CREATININE - SERUM 4.4 mg/dL (0.6-1.3); GLUCOSE 141 mg/dL (74-106); POTASSIUM - SERUM 5.9 mmol/L (3.5-5.1); SODIUM 138 mmol/L (136-145); UREA NITROGEN 62 mg/dL (7-18); eGFR NON AFRICAN AMERICAN 14 mL/min (90-120)
[2020-05-31 22:48] LABS: PLATELET COUNT 203 10x3/uL (130-400)
[2020-05-31 22:57] LABS: INR 1.75 (0.85-1.17)
[2020-05-31 23:03] LABS: ALBUMIN 2.9 g/dL (3.4-5.0); ALKALINE PHOSPHATASE 62 U/L (30-120); ALT (SGPT) 18 U/L (10-68); BILIRUBIN - TOTAL 1.34 mg/dL (0.2-1.3); CKMB 3.7 U/L (0.0-3.6); CREATINE KINASE 37 UL (21-232); MAGNESIUM - SERUM 1.9 mg/dL (1.8-2.4); PROTEIN - SERUM 7.2 g/dL (6.4-8.2); THYROID STIMULATING HORMONE 4.56 uIU/mL (0.36-3.74)
[2020-05-31] MEDS ORDERED: ZOVIRAX800 MG PO (23:09)
[2020-05-31] MEDS ORDERED: COZAAR100 MG PO (23:11)
[2020-05-31] MEDS ORDERED: GABAPENTIN300 MG PO (23:11)
[2020-05-31] MEDS ORDERED: ZOFRAN4 MG PO (23:12)
[2020-05-31] MEDS ORDERED: K-TAB10 MEQ PO (23:12)
[2020-05-31] MEDS ORDERED: TOPROL XL200 MG PO (23:12)
[2020-05-31] MEDS ORDERED: RELAFEN750 MG PO (23:12)
[2020-05-31] MEDS ORDERED: ACIDOPHILUS-PE1 EACH PO (23:13)
[2020-05-31] MEDS ORDERED: VERAPAMIL ER P200 MG PO (23:13)
[2020-05-31] MEDS ORDERED: TORSEMIDE20 MG PO (23:13)
[2020-05-31] MEDS ORDERED: XARELTO20 MG PO (23:13)
[2020-05-31] MEDS ORDERED: FIBER LAXATIVE500 MG PO (23:14)
[2020-05-31] MEDS ORDERED: FERROUS SULFAT325 MG PO (23:14)
[2020-05-31] MEDS ORDERED: [UNRECOGNIZED DRUG - OTHER] (23:15)
[2020-05-31] MEDS ORDERED: TUMERIC/CURCUMIN (23:15)
[2020-05-31 23:16] LABS: TROPONIN-I < 0.017 ng/mL (0.000-0.060)
[2020-05-31] MEDS ORDERED: VITAMIN D-40010 MCG PO (23:16)
[2020-05-31] MEDS ORDERED: VITAMIN C500 M1 PO (23:16)
[2020-05-31] MEDS ORDERED: ZYRTEC10 MG PO (23:17)
[2020-06-01] VITALS (79 sets, daily range): BP systolic 90–175; BP diastolic 36–88; Ht 182.9 cm; Wt 106.7 kg
[2020-06-01 05:13] LABS: BASOPHILS 0.3 % (0-2); EOSINOPHILS 0.3 % (0-7); HEMATOCRIT 27.5 % (42.0-54.0); HEMOGLOBIN 8.8 g/dL (13.5-17.5); IMMATURE GRANULOCYTES 0.9 % (0-5); LYMPHOCYTES 12.3 % (15-50); MCH 31.5 pg (26.0-34.0); MCV 98.6 fL (80.0-100.0); MEAN PLATELET VOLUME 11.3 fL (7.4-10.4); MONOCYTES 6.9 % (2-11); NEUTROPHIL ABS# 10.97 10x3/uL (1.78-5.38); NEUTROPHILS 79.3 % (40-80); PLATELET COUNT 227 10x3/uL (130-400); RBC 2.79 10x6/uL (4.20-6.10); RDW 16.7 % (11.5-14.5); RETIC 2.54 % (0.45-2.28); WBC 13.8 10x3/uL (4.8-10.8)
[2020-06-01 05:31] LABS: % SATURATION 33 % (15-55); IRON 104 ug/dl (35-150); TOTAL IRON BIND CAPACITY 312 ug/dl (260-445); UNSAT IRON BIND CAPACITY 208 ug/dl (150-375)
[2020-06-01 05:55] LABS: ALBUMIN 3.3 g/dL (3.4-5.0); ALKALINE PHOSPHATASE 69 U/L (30-120); BILIRUBIN - TOTAL 1.68 mg/dL (0.2-1.3); CALCIUM 9.5 mg/dL (8.5-10.1); CARBON DIOXIDE 19.7 mmol/L (21.0-32.0); CHLORIDE - SERUM 103 mmol/L (98-107); CKMB 3.1 U/L (0.0-3.6); CREATINE KINASE 36 UL (21-232); CREATININE - SERUM 4.8 mg/dL (0.6-1.3); FERRITIN 67 ng/mL (3-244); SODIUM 138 mmol/L (136-145); UREA NITROGEN 66 mg/dL (7-18); eGFR NON AFRICAN AMERICAN 12 mL/min (90-120)
[2020-06-01 05:56] LABS: ALT (SGPT) 25 U/L (10-68); CALC OSMOLALITY 300 mosm/kg (275-300); GLUCOSE 213 mg/dL (74-106); TROPONIN-I < 0.017 ng/mL (0.000-0.060)
--- NOTE | 2020-06-01 05:56 | NUR ---
DR. TEJEDA PAGED AND NOTIFIED OF CONSULT WELL RENAL
[2020-06-01 05:57] LABS: POTASSIUM - SERUM 6.2 mmol/L (3.5-5.1)
[2020-06-01 07:32] LABS: INR 1.54 (0.85-1.17); PROTIME 17.1 SECONDS (11.6-15.0)
[2020-06-01 07:48] LABS: CALC OSMOLALITY 298 mosm/kg (275-300); CALCIUM 9.5 mg/dL (8.5-10.1); CARBON DIOXIDE 20.4 mmol/L (21.0-32.0); CHLORIDE - SERUM 101 mmol/L (98-107); CREATINE KINASE 45 UL (21-232); GLUCOSE 220 mg/dL (74-106); LIPASE 112 U/L (73-393); SODIUM 136 mmol/L (136-145); TROPONIN-I < 0.017 ng/mL (0.000-0.060); UREA NITROGEN 69 mg/dL (7-18); eGFR NON AFRICAN AMERICAN 12 mL/min (90-120)
[2020-06-01 07:52] LABS: POTASSIUM - SERUM 6.5 mmol/L (3.5-5.1)
--- NOTE | 2020-06-01 08:53 | NUR ---
Dr. quiles aware of potassium level and orders noted.
--- NOTE | 2020-06-01 12:06 | NUR ---
HAVE TITRATED OXYEN FOR SATS AND PT IS NOW ON 5 LITERS N/C AND HAS HAD ABOUT 1400CC URINE OUT SO FAR. PATIENT ON BICARB DRIP AND HAVE TITRATED DOPAMINE TO 5MCG/KG/MIN AT THIS POINT DUE TO INCREASED BLOOD PRESSURE.
[2020-06-01 14:31] LABS: BILIRUBIN NEGATIVE (NEGATIVE); KETONE NEGATIVE (NEGATIVE); NITRITE NEGATIVE (NEGATIVE); SQUAMOUS EPITHELIAL 0-5 HPF (0-4); UROBILINOGEN NORMAL mg/dL (< 2); WHITE CELLS - URINE NONE SEEN HPF (0-1)
[2020-06-01 16:44] LABS: CALCIUM 8.9 mg/dL (8.5-10.1); CARBON DIOXIDE 24.3 mmol/L (21.0-32.0); CREATININE - SERUM 4.5 mg/dL (0.6-1.3)
[2020-06-01 16:47] LABS: ANION GAP 18.9 mmol/L (8-16); POTASSIUM - SERUM 5.2 mmol/L (3.5-5.1)
--- NOTE | 2020-06-01 17:12 | NUR ---
DR. SPRING NOTIFIED THAT HIS NOSE PACKING IS IN THE BACK OF HIS THROAT. DR. SPRING REMOVED PACKING WITH NO PROBLEMS.
[2020-06-02] VITALS (38 sets, daily range): BP systolic 94–133; BP diastolic 52–92
[2020-06-02 05:21] LABS: BASOPHILS 0.1 % (0-2); EOSINOPHILS 0.3 % (0-7); HEMATOCRIT 25.7 % (42.0-54.0); HEMOGLOBIN 8.4 g/dL (13.5-17.5); IMMATURE GRANULOCYTES 0.4 % (0-5); LYMPHOCYTES 8.3 % (15-50); MCH 32.1 pg (26.0-34.0); MCHC 32.7 g/dL (31.0-37.0); MCV 98.1 fL (80.0-100.0); MEAN PLATELET VOLUME 10.9 fL (7.4-10.4); MONOCYTES 5.6 % (2-11); NEUTROPHIL ABS# 18.54 10x3/uL (1.78-5.38); NEUTROPHILS 85.3 % (40-80); PLATELET COUNT 217 10x3/uL (130-400); RBC 2.62 10x6/uL (4.20-6.10); RDW 16.9 % (11.5-14.5); WBC 21.7 10x3/uL (4.8-10.8)
[2020-06-02 05:22] LABS: ALBUMIN 2.5 g/dL (3.4-5.0); ANION GAP 13.6 mmol/L (8-16); BILIRUBIN - TOTAL 1.08 mg/dL (0.2-1.3); CALCIUM 8.9 mg/dL (8.5-10.1); CARBON DIOXIDE 27.3 mmol/L (21.0-32.0); CREATININE - SERUM 4.5 mg/dL (0.6-1.3); MAGNESIUM - SERUM 1.7 mg/dL (1.8-2.4); POTASSIUM - SERUM 4.9 mmol/L (3.5-5.1); PROTEIN - SERUM 6.7 g/dL (6.4-8.2)
[2020-06-02 12:11] LABS: SPE - A/G RATIO 1.1 (0.7-1.7); SPE - ALBUMIN 4.2 g/dL (2.9-4.4); SPE - ALPHA-1 GLOBULIN 0.3 g/dL (0.0-0.4); SPE - BETA GLOBULIN 1.1 g/dL (0.7-1.3); SPE - GAMMA GLOBULIN 1.4 g/dL (0.4-1.8); SPE - M-SPIKE Not Observed g/dL (Not Observed); SPE - TOTAL PROTEIN 7.9 g/dL (6.0-8.5)
--- NOTE | 2020-06-02 19:19 | NUR ---
RECEIVED BEDSIDE REPORT. ROUNDING COMPLETE. PATIENT IS ALERT AND ORIENTED, VISITING WITH HIS SISTER. RESPIRATIONS ARE EVEN AND UNLABORED. NO S/S OF DISTRESS. NO C/O PAIN. CALL LIGHT WITHIN REACH. WILL CPOC.
[2020-06-03] VITALS (13 sets, daily range): BP systolic 108–156; BP diastolic 54–96
[2020-06-03 05:10] LABS: ALBUMIN 2.4 g/dL (3.4-5.0); ANION GAP 13.8 mmol/L (8-16); BILIRUBIN - TOTAL 0.83 mg/dL (0.2-1.3); CALCIUM 8.5 mg/dL (8.5-10.1); CARBON DIOXIDE 27.5 mmol/L (21.0-32.0); CREATININE - SERUM 4.2 mg/dL (0.6-1.3); MAGNESIUM - SERUM 1.8 mg/dL (1.8-2.4); POTASSIUM - SERUM 4.3 mmol/L (3.5-5.1)
[2020-06-03 05:12] LABS: BASOPHILS 0.1 % (0-2); EOSINOPHILS 3.3 % (0-7); HEMATOCRIT 25.1 % (42.0-54.0); HEMOGLOBIN 8.1 g/dL (13.5-17.5); IMMATURE GRANULOCYTES 0.2 % (0-5); LYMPHOCYTES 11.6 % (15-50); MCH 31.9 pg (26.0-34.0); MCHC 32.3 g/dL (31.0-37.0); MCV 98.8 fL (80.0-100.0); MEAN PLATELET VOLUME 11.1 fL (7.4-10.4); MONOCYTES 5.9 % (2-11); NEUTROPHIL ABS# 10.91 10x3/uL (1.78-5.38); NEUTROPHILS 78.9 % (40-80); PLATELET COUNT 201 10x3/uL (130-400); RBC 2.54 10x6/uL (4.20-6.10); RDW 16.9 % (11.5-14.5)
[2020-06-03 05:15] LABS: WBC 13.8 10x3/uL (4.8-10.8)
--- NOTE | 2020-06-03 13:51 | NUR ---
Nutrition follow-up: Pt just out of ICU today Diet order: Renal consistent CHO PO intake ~25-50% of some meals; pt c/o constipation; manual disimpaction Labs reviewed Wt: 235# Will continue to provide food choices and honor food preferences within diet restrictions. RDN follow-up on advancement to nutrition goals: 06/08/20
[2020-06-04] VITALS: BP 112/51
[2020-06-04 04:00] VITALS: BP 132/61
[2020-06-04 05:32] LABS: BASOPHILS 0.2 % (0-2); EOSINOPHILS 4.1 % (0-7); HEMATOCRIT 26.9 % (42.0-54.0); HEMOGLOBIN 8.5 g/dL (13.5-17.5); IMMATURE GRANULOCYTES 0.2 % (0-5); LYMPHOCYTES 11.8 % (15-50); MCH 31.5 pg (26.0-34.0); MCHC 31.6 g/dL (31.0-37.0); MCV 99.6 fL (80.0-100.0); MEAN PLATELET VOLUME 11.2 fL (7.4-10.4); MONOCYTES 6.4 % (2-11); NEUTROPHIL ABS# 9.81 10x3/uL (1.78-5.38); NEUTROPHILS 77.3 % (40-80); WBC 12.7 10x3/uL (4.8-10.8)
[2020-06-04 05:41] LABS: PLATELET COUNT 251 10x3/uL (130-400)
[2020-06-04 05:45] LABS: ALBUMIN 2.4 g/dL (3.4-5.0); ANION GAP 10.5 mmol/L (8-16); BILIRUBIN - TOTAL 0.64 mg/dL (0.2-1.3); CALCIUM 8.5 mg/dL (8.5-10.1); CARBON DIOXIDE 30.2 mmol/L (21.0-32.0); CREATININE - SERUM 3.6 mg/dL (0.6-1.3); MAGNESIUM - SERUM 1.9 mg/dL (1.8-2.4); POTASSIUM - SERUM 3.7 mmol/L (3.5-5.1); PROTEIN - SERUM 6.7 g/dL (6.4-8.2)
--- NOTE | 2020-06-04 09:00 | NUR ---
ASSISTED PT TO BATHROOM FOR BM. BACK TO BED NOW FOR BREAKFAST AND MEDS.
[2020-06-04 09:25] VITALS: BP 138/76
--- NOTE | 2020-06-04 10:36 | NUR ---
PT RECEIVED AWAKE AND ALERT SITTING UP IN BED. STATES HAD GOOD NIGHT.
[2020-06-04 12:17] VITALS: BP 102/69
[2020-06-04 16:58] VITALS: BP 176/95
--- NOTE | 2020-06-04 19:42 | NUR ---
PT HR UP TO THE 120S UCAF, TEMP 102.2. TYLENOL PROVIDED. NO S/S OF DISTRESS. PT EASILY AROUSED.
[2020-06-04 21:44] VITALS: BP 110/47
[2020-06-05 01:07] VITALS: BP 129/76
[2020-06-05 05:33] LABS: HEMATOCRIT 26.3 % (42.0-54.0); HEMOGLOBIN 8.6 g/dL (13.5-17.5); LYMPHOCYTE ABS# 1.27 10x3/uL (1.32-3.57); MCHC 32.7 g/dL (31.0-37.0); MCV 100.8 fL (80.0-100.0); MEAN PLATELET VOLUME 11.7 fL (7.4-10.4); NEUTROPHIL ABS# 31.05 10x3/uL (1.78-5.38); PLATELET COUNT 164 10x3/uL (130-400); RBC 2.61 10x6/uL (4.20-6.10); RDW 16.9 % (11.5-14.5); WBC 34.6 10x3/uL (4.8-10.8)
[2020-06-05 05:36] VITALS: BP 106/48
[2020-06-05 05:55] LABS: ALBUMIN 2.4 g/dL (3.4-5.0); ANION GAP 16.3 mmol/L (8-16); BILIRUBIN - TOTAL 0.68 mg/dL (0.2-1.3); CARBON DIOXIDE 27.3 mmol/L (21.0-32.0); CREATININE - SERUM 3.6 mg/dL (0.6-1.3); MAGNESIUM - SERUM 1.6 mg/dL (1.8-2.4); POTASSIUM - SERUM 3.6 mmol/L (3.5-5.1); PROTEIN - SERUM 6.3 g/dL (6.4-8.2); URIC ACID 3.9 mg/dL (2.6-7.2)
[2020-06-05 06:16] LABS: LYMPHOCYTES 5 % (15-50); MONOCYTES 1 % (2-11); NEUTROPHILS 93 % (40-80); PLATELET ESTIMATE NORMAL
--- NOTE | 2020-06-05 07:36 | NUR ---
PT WITH ELEVATED TEMP DURING THE NIGHT. FEVER BROKE AT 4AM, PT A&O BUT FALLS ASLEEP EASILY. STAT LACTIC AND CXR ORDERED THIS AM. HR 80-120S A-FIB.
[2020-06-05 08:33] VITALS: BP 118/63
[2020-06-05 11:32] VITALS: BP 112/64
[2020-06-05 17:37] VITALS: BP 117/45
--- NOTE | 2020-06-05 21:00 | NUR ---
PT A&O MORE AWAKE AND RESPONSIVE TONIGHT. NO TEMP NOTED TONIGHT. NO S/S OF DISTRESS. HR CAF IN THE 80'S.
[2020-06-05 21:07] VITALS: BP 128/61
[2020-06-06 01:57] VITALS: BP 145/73
[2020-06-06 05:07] LABS: BASOPHILS 0.1 % (0-2); EOSINOPHILS 1.1 % (0-7); HEMATOCRIT 24.4 % (42.0-54.0); HEMOGLOBIN 7.8 g/dL (13.5-17.5); IMMATURE GRANULOCYTES 0.5 % (0-5); LYMPHOCYTE ABS# 1.87 10x3/uL (1.32-3.57); LYMPHOCYTES 5.6 % (15-50); MCH 31.6 pg (26.0-34.0); MCV 98.8 fL (80.0-100.0); MEAN PLATELET VOLUME 10.8 fL (7.4-10.4); MONOCYTES 4.7 % (2-11); NEUTROPHIL ABS# 29.29 10x3/uL (1.78-5.38); PLATELET COUNT 190 10x3/uL (130-400); RBC 2.47 10x6/uL (4.20-6.10); RDW 16.2 % (11.5-14.5); WBC 33.3 10x3/uL (4.8-10.8)
[2020-06-06 05:48] LABS: ALBUMIN 2.1 g/dL (3.4-5.0); ANION GAP 13.9 mmol/L (8-16); BILIRUBIN - TOTAL 0.65 mg/dL (0.2-1.3); CALCIUM 8.1 mg/dL (8.5-10.1); CARBON DIOXIDE 26.5 mmol/L (21.0-32.0); CREATININE - SERUM 3.4 mg/dL (0.6-1.3); MAGNESIUM - SERUM 1.7 mg/dL (1.8-2.4); POTASSIUM - SERUM 3.4 mmol/L (3.5-5.1); PROTEIN - SERUM 6.5 g/dL (6.4-8.2); VANCOMYCIN - RANDOM 0.9 ug/mL (10.0-20.0)
[2020-06-06 06:14] VITALS: BP 121/65
[2020-06-06 08:21] VITALS: BP 130/69
--- NOTE | 2020-06-06 10:30 | NUR ---
Up OOB ambulating with pt assist.
--- NOTE | 2020-06-06 11:30 | NUR ---
IV RESTARTED TO LEFT WRIST BY ALTAGRACIA CHILEL WITH 22 GAUGE CATH. LINE IS INTACT AND PATENT.
[2020-06-06 15:39] VITALS: BP 126/66
--- NOTE | 2020-06-06 16:30 | NUR ---
12T UNIT PRBC STARTED. LINE IS PATENT. WILL MONITOR.
[2020-06-06 19:00] VITALS: BP 130/59
--- NOTE | 2020-06-06 23:37 | NUR ---
SECOND UNIT OF PRBC STARTED, PT TOLERATING WELL. NO S/S OF AN ADVERSE REACTION NOTED.
[2020-06-07] VITALS (7 sets, daily range): BP systolic 110–147; BP diastolic 71–80
[2020-06-07 05:22] LABS: HEMATOCRIT 29.1 % (42.0-54.0); HEMOGLOBIN 9.5 g/dL (13.5-17.5); LYMPHOCYTE ABS# 1.06 10x3/uL (1.32-3.57); MCH 31.3 pg (26.0-34.0); MCHC 32.6 g/dL (31.0-37.0); MCV 95.7 fL (80.0-100.0); MEAN PLATELET VOLUME 10.6 fL (7.4-10.4); NEUTROPHIL ABS# 21.65 10x3/uL (1.78-5.38); PLATELET COUNT 186 10x3/uL (130-400); RBC 3.04 10x6/uL (4.20-6.10); RDW 17.6 % (11.5-14.5); WBC 24.5 10x3/uL (4.8-10.8)
[2020-06-07 05:49] LABS: EOSINOPHILS 2 % (0-7); LYMPHOCYTES 5 % (15-50); MONOCYTES 7 % (2-11); NEUTROPHILS 84 % (40-80); PLATELET ESTIMATE NORMAL
[2020-06-07 05:50] LABS: ALBUMIN 2.1 g/dL (3.4-5.0); ANION GAP 15.6 mmol/L (8-16); BILIRUBIN - TOTAL 0.85 mg/dL (0.2-1.3); CALCIUM 8.3 mg/dL (8.5-10.1); MAGNESIUM - SERUM 1.7 mg/dL (1.8-2.4); POTASSIUM - SERUM 3.6 mmol/L (3.5-5.1); PROTEIN - SERUM 6.7 g/dL (6.4-8.2); VANCOMYCIN - RANDOM 11.9 ug/mL (10.0-20.0)
--- NOTE | 2020-06-07 15:04 | NUR ---
REHAB PRESCREENING Rehab referral received and chart reviewed. This patient is a good candidate for acute inpatient rehab. ERICK Richter spoke with patient and he is agreeable to come. We will begin his electronic screen and plan to accept him when approvals are in place and his physician feels he is appropriate for discharge. Thank you for this referral! Leila Rodriguez, LOCK OPERATOR Rehab PD
--- NOTE | 2020-06-07 19:33 | NUR ---
RECIEVED UP IN BED WITH EYES OPEN AND TV ON. ALERT AND ORIENTED X4. UP WITH ASSIST. HAS A COKE ON BEDSIDE TABLE. SPOKE WITH HIM ABOUT HIS DIABETIC DIET AND EFFECTS OF FAST SUGARS. AGREED TO DRINK A SUGAR FREE [place]. O2@ 2 LITERS PER N/C. IV TO LT FA SL. TELEMETRY IN PLACE. HAD EPISODE OF BOWEL INCONT ON FLOOR. DEIES ANY NEEDS AT THIS TIME.
[2020-06-08 04:22] LABS: BASOPHILS 0.1 % (0-2); EOSINOPHILS 1.7 % (0-7); HEMATOCRIT 28.6 % (42.0-54.0); HEMOGLOBIN 9.3 g/dL (13.5-17.5); IMMATURE GRANULOCYTES 0.6 % (0-5); LYMPHOCYTE ABS# 1.08 10x3/uL (1.32-3.57); LYMPHOCYTES 6.6 % (15-50); MCH 30.8 pg (26.0-34.0); MCHC 32.5 g/dL (31.0-37.0); MCV 94.7 fL (80.0-100.0); MEAN PLATELET VOLUME 10.1 fL (7.4-10.4); MONOCYTES 7.2 % (2-11); NEUTROPHILS 83.8 % (40-80); PLATELET COUNT 210 10x3/uL (130-400); RBC 3.02 10x6/uL (4.20-6.10); RDW 17.1 % (11.5-14.5)
[2020-06-08 04:26] LABS: WBC 16.3 10x3/uL (4.8-10.8)
[2020-06-08 04:44] VITALS: BP 149/74
[2020-06-08 04:52] LABS: ANION GAP 14.7 mmol/L (8-16); BILIRUBIN - TOTAL 0.87 mg/dL (0.2-1.3); CARBON DIOXIDE 23.6 mmol/L (21.0-32.0); CREATININE - SERUM 2.8 mg/dL (0.6-1.3); MAGNESIUM - SERUM 1.7 mg/dL (1.8-2.4); PHOSPHOROUS 2.5 mg/dL (2.5-4.9); POTASSIUM - SERUM 3.3 mmol/L (3.5-5.1); PROTEIN - SERUM 6.6 g/dL (6.4-8.2); VANCOMYCIN - RANDOM 21.2 ug/mL (10.0-20.0)
[2020-06-08 07:00] VITALS: BP 142/69
--- NOTE | 2020-06-08 10:00 | NUR ---
STAGE 2 ULCER IN GLUTEAL FOLD AND BLISTER, PENIS RED AND SWOLLEN. PT EXPERIENCING CONSTANT DIARHEA. REPORTED TO SUPERVISOR MATRIX WHO ORDERED IMODIUM. BM NOT OF CDIFF NATURE. PATIENT COMPLAINS OF PAIN AT WOUND SITE. APPLYING BARIER CREAM.
[2020-06-08 12:00] VITALS: BP 146/77
--- NOTE | 2020-06-08 12:18 | NUR ---
Nutrition Reassessment/Follow-up: Pt sitting up in bed eating breakfast at time of visit this AM. Reports appetite is not very good. K+ 3.3 this AM. Received KDur. Now 3.8. Diet: Renal ADA PO intake: 33% avg x 3 meals yesterday No new wt; last wt: 234.7# (06/03); 232# (06/01) Labs noted: Na 133, K+ 3.3 -> 3.8, GFR 23, Glu 199, Ca 8.0, Mg 1.7, Alb 2.0, PO4 2.5 Meds noted: MagOx, Miralax, Florajen, Pepcid, Humulin, electrolyte protocol -Nutrition needs unchanged from initial assessment. -MD may consider liberalizing to cardiac carb consistent diet. K+ 3.3 & PO4 2.5 this AM. -Encourage PO intake and honor food preferences within diet restrictions. -Offer nutrition supplements. -Need new wt. -RD will follow up within 3 days.
[2020-06-08 15:00] VITALS: BP 154/58
--- NOTE | 2020-06-08 17:37 | NUR ---
OT NOTE: PT WAS LETHARGIC. PT REQUIRED MODERATED CUE FOR INCREASED PARTICIPATION. NOTIFIED NURSE OF LETHARGY. NURSING CLEARED PT TO PROCEED. PT COMPLETED BUE AROM EXS TOLERATED. PT COMPLETED SUPINE TO SIT WITH MOD-MAX A. PT COMPLETED SIT TO STAND WITH MOD A. PT REQUIRED TOTAL A WITH LB HYGIENE SECONDARY TO LOOSE BM. PT REQUIRED MIN A FOR UB HYGIENE TASKS. STATES THAT PT STAYS UP AT NIGHT AND IS LETHARGIC DURING THE DAY. STATES PT IS NOT EATING. NURSING AWARE. [id number] SONIA DOLAN COTA
--- NOTE | 2020-06-08 18:56 | MORECARE ---
CASE MANAGEMENT DISCHARGE SUMMARY PATIENT: MANUEL BEAVERS UNIT: [id number] ADM DATE: 05/31/20 AGE: 80 : 41 SEX: M ROOM/BED: D.2116 AUTHOR: SALUD,DOC PHYSICIAN: REFERRING PHYSICIAN: JUVENAL KOCH MD DATE OF SERVICE: 06/08/20 Case Management Discharge Planning Summary CT Patient Name: MANUEL BEAVERS Attending MD : DOROTHEA KOCH, Medical Record: [id number] Encounter : [id number] Facility : [address] [place] [address] Admission Date : 123:21 Center Discharge Date : [address] [place] [address] Date of : DC Plan ID : [id number] Age/Sex/Martia : 80/ M/M Printed on : 06/08/20 18:55 CT DCP Review Details Anticipated D/C: Expected LOS : Case Status : INITIATED - Initial Reviewe: [id number] Magy Ramirez Initial Review: 05/31/2020 Planned Disposi: 62 - Discharged/Trans to Rehab Facility Including Distinct Units of a Hospital Final Discharge: - Final Reviewer : : Final Review : DCP Focus Questions & Answers DCP Screen High Risk Factors: Polypharmacy (greater than 10 meds) DCP Evaluation Patient's ability to cope with chronic illness d. No chronic illness Would patient like to participate in any Care Not applicable Coordination programs (if applicable): Mental health screen: No mental health history DCP Re-evaluation Would patient like to participate in any Care Not applicable Coordination programs (if applicable): [facility] MANUEL BEAVERS MR#: [id number] /Age/Sex/Plfpjx26-Oep-71 /80/M /M Attending Physician Name: ZEE [id number] Patient Account:[id number] [facility] Page -1 of 1 All edits/amendments must be made on the electronic document DICTATION DATE: 06/08/201854 SENIOR SCRUM MASTER: BRITNEY 06/08/201854 RPT#: [id number] DC DATE: STATUS: ADM IN [facility] [address] [place] [address] END OF REPORT
[2020-06-08 19:00] VITALS: BP 133/88
--- NOTE | 2020-06-08 19:08 | MORECARE ---
CASE MANAGEMENT DISCHARGE SUMMARY PATIENT: MANUEL BEAVERS UNIT: [id number] ADM DATE: 05/31/20 AGE: 80 : 41 SEX: M ROOM/BED: D.2117 AUTHOR: SALUD,DOC PHYSICIAN: REFERRING PHYSICIAN: JUVENAL KOCH MD DATE OF SERVICE: 06/08/20 Case Management Discharge Planning Summary CT Patient Name: MANUEL BEAVERS Attending MD : DOROTHEA KOCH, Medical Record: [id number] Encounter : [id number] Facility : [address] [place] [address] Admission Date : 123:21 Center Discharge Date : [address] [place] [address] Date of : DC Plan ID : [id number] Age/Sex/Martia : 80/ M/M Printed on : 06/08/20 19:06 CT DCP Review Details Anticipated D/C: Expected LOS : Case Status : INITIATED - Initial Reviewe: [id number] Magy Ramirez Initial Review: 05/31/2020 Planned Disposi: 62 - Discharged/Trans to Rehab Facility Including Distinct Units of a Hospital Final Discharge: - Final Reviewer : : Final Review : DCP Focus Questions & Answers DCP Screen High Risk Factors: Polypharmacy (greater than 10 meds) DCP Evaluation Patient and/or caregiver agree upon recommended Yes discharge plan? Patient's current cognitive status: *Oriented to person, place, situation, time and present Patient gives permission to discuss discharge SHAMA BEAVERS-SPOUSE [phone] plans with: (name, relationship and number) Patient's ability to cope with chronic illness d. No chronic illness Alternate discharge plan (if recommended plan not INPATIENT REHAB NP agreed upon by patient and/or caregiver): HOME W [facility] Functional screen assessment: Unable to manage ADLs without immediate ongoing assistance Physical Status: Mobility impaired Physical Status: Compromised skin integrity Partial Dependence, assistance required for: Eating Partial Dependence, assistance required for: Dressing Partial Dependence, assistance required for: Bathing Partial Dependence, assistance required for: Ambulation / Mobility Patient with capacity for self-care or can be No cared for in same environment as prior to hospitalization? Baseline cognitive status: *Oriented to person, place, situation, time and present Medication Management: Patient states can afford medications Planned post hospital services available for Yes patient? [facility] Planned post hospital services covered by Yes insurance plan? Does Patient have transportation to get home and Yes to follow-up medical appointments when discharged from the hospital? Would patient like to participate in any Care Not applicable Coordination programs (if applicable): Does the patient have electricity at home? Yes Does the patient have running water in their Yes house? Equipment in use: Walker - Rolling Equipment in use: Shower Chair Equipment in use: Cane - Quad Mental health screen: No mental health history Psychosocial status: Adult with physical limitations Abuse/Neglect: None Resources / Services in place: Home health Contact information for resources in use: SAMAN[facility]A DCP Re-evaluation Would patient like to participate in any Care Not applicable Coordination programs (if applicable): [facility] MANUEL BEAVERS MR#: [id number] /Age/Sex/Vqjbbz37-Vxr-56 //M /M Attending Physician Name: ZEE [id number] Patient Account:[id number] [facility] Page -1 of 1 All edits/amendments must be made on the electronic document DICTATION DATE: 06/08/201905 BARREL LOADER AND CLEANER: BRITNEY 06/08/201905 RPT#: [id number] DC DATE: STATUS: ADM IN [facility] [address] [place] [address] END OF REPORT
--- NOTE | 2020-06-08 19:19 | MORECARE ---
CASE MANAGEMENT DISCHARGE SUMMARY PATIENT: MANUEL BEAVERS UNIT: [id number] ADM DATE: 05/31/20 AGE: 80 : 41 SEX: M ROOM/BED: D.2117 AUTHOR: SALUD,DOC PHYSICIAN: REFERRING PHYSICIAN: JUVENAL KOCH MD DATE OF SERVICE: 06/08/20 Case Management Discharge Planning Summary CT Patient Name: MANUEL BEAVERS Attending MD : DOROTHEA KOCH, Medical Record: [id number] Encounter : [id number] Facility : [address] [place] [address] Admission Date : 123:21 Center Discharge Date : [address] [place] [address] Date of : DC Plan ID : [id number] Age/Sex/Martia : 80/ M/M Printed on : 06/08/20 19:18 CT DCP Review Details Anticipated D/C: Expected LOS : Case Status : INITIATED - Initial Reviewe: [id number] - So Ramirez Initial Review: 05/31/2020 Planned Disposi: 62 - Discharged/Trans to Rehab Facility Including Distinct Units of a Hospital Final Discharge: - Final Reviewer : : Final Review : Comments CT Entered Date Type Reviewer 06/08/20 19:03 CT Discharge Planning So Ramirez Comment CM spoke with patient at bedside he states that Dr. Koch is his PCP. He lives at home with his . He states that he has [facility]. He states that he would like to go to [facility] inpatient rehab before discharging home. THANIA signed CM will continue to follow and assist as needed with discharge planning / needs DCP Focus Questions & Answers DCP Screen High Risk Factors: Polypharmacy (greater than 10 meds) DCP Evaluation Patient and/or caregiver agree upon recommended Yes discharge plan? Patient's current cognitive status: *Oriented to person, place, situation, time and present Patient gives permission to discuss discharge SHAMA BEAVERS-SPOUSE [phone] plans with: (name, relationship and number) Patient's ability to cope with chronic illness d. No chronic illness Alternate discharge plan (if recommended plan not INPATIENT REHAB [facility] agreed upon by patient and/or caregiver): HOME [facility] Functional screen assessment: Unable to manage ADLs without immediate ongoing assistance Physical Status: Mobility impaired Physical Status: Compromised skin integrity Partial Dependence, assistance required for: Eating Partial Dependence, assistance required for: Dressing Partial Dependence, assistance required for: Bathing Partial Dependence, assistance required for: Ambulation / Mobility Patient with capacity for self-care or can be No cared for in same environment as prior to hospitalization? Baseline cognitive status: *Oriented to person, place, situation, time and present Medication Management: Patient states can afford medications Planned post hospital services available for Yes patient? [facility] Planned post hospital services covered by Yes insurance plan? Does Patient have transportation to get home and Yes to follow-up medical appointments when discharged from the hospital? Would patient like to participate in any Care Not applicable Coordination programs (if applicable): Does the patient have electricity at home? Yes Does the patient have running water in their Yes house? Equipment in use: Walker - Rolling Equipment in use: Shower Chair Equipment in use: Cane - Health Plotter Mental health screen: No mental health history Psychosocial status: Adult with physical limitations Abuse/Neglect: None Resources / Services in place: Home health Contact information for resources in use: SAMANTHA MOTTA DCP Re-evaluation Would patient like to participate in any Care Not applicable Coordination programs (if applicable): [facility] MANUEL BEAVERS MR#: [id number] /Age/Sex/Mquegl92-Aor-15 //M /M Attending Physician Name: ZEE [id number] Patient Account:[id number] [facility] Page -1 of 1 All edits/amendments must be made on the electronic document DICTATION DATE: 06/08/201917 MARINE EQUIPMENT ENGINEER: BRITNEY 06/08/201917 RPT#: [id number] DC DATE: STATUS: ADM IN [facility] [address] [place] [address] END OF REPORT
--- NOTE | 2020-06-08 19:44 | NUR ---
RECIEVED UP IN BED WITH EYES CLOSED. EASILY AROUSED WITH VERBAL STIMULI. ORIENTED X4. O2@ 2 LITERS PER NC. IV TO LT FA. BLISTER TO GLUTEAL FOLD. TELEMETRY IN PLACE. PENIS AND SCROYUM SWOLLEN. DENIES ANY NEEDS AT THIS TIME.
[2020-06-09] VITALS (7 sets, daily range): BP systolic 134–150; BP diastolic 71–84
[2020-06-09 05:25] LABS: BASOPHILS 0.2 % (0-2); HEMATOCRIT 28.5 % (42.0-54.0); HEMOGLOBIN 9.2 g/dL (13.5-17.5); IMMATURE GRANULOCYTES 0.5 % (0-5); LYMPHOCYTES 5.9 % (15-50); MCH 30.9 pg (26.0-34.0); MCHC 32.3 g/dL (31.0-37.0); MCV 95.6 fL (80.0-100.0); MEAN PLATELET VOLUME 10.3 fL (7.4-10.4); MONOCYTES 7.5 % (2-11); NEUTROPHIL ABS# 14.34 10x3/uL (1.78-5.38); NEUTROPHILS 83.9 % (40-80); PLATELET COUNT 237 10x3/uL (130-400); RBC 2.98 10x6/uL (4.20-6.10); RDW 16.4 % (11.5-14.5); WBC 17.1 10x3/uL (4.8-10.8)
[2020-06-09 06:03] LABS: ALBUMIN 1.9 g/dL (3.4-5.0); ANION GAP 12.6 mmol/L (8-16); BILIRUBIN - TOTAL 0.78 mg/dL (0.2-1.3); CALCIUM 8.2 mg/dL (8.5-10.1); CARBON DIOXIDE 25.1 mmol/L (21.0-32.0); CREATININE - SERUM 2.5 mg/dL (0.6-1.3); MAGNESIUM - SERUM 2.1 mg/dL (1.8-2.4); PHOSPHOROUS 2.9 mg/dL (2.5-4.9); POTASSIUM - SERUM 3.7 mmol/L (3.5-5.1); PROTEIN - SERUM 6.5 g/dL (6.4-8.2); VANCOMYCIN - RANDOM 15.3 ug/mL (10.0-20.0)
--- NOTE | 2020-06-09 09:19 | NUR ---
REHAB PRESCREENING Rehab continues to follow this patient. We plan to accept this patient when his physicians feel he is appropriate for discharge. Thank you for this referral! Leila Rodriguez, BREAKDOWN MAN Rehab PD
--- NOTE | 2020-06-09 11:30 | NUR ---
OOB TO CHAIR WITH PT ASSIST. AT BS. CALL LIGHT IN REACH.
--- NOTE | 2020-06-09 16:54 | NUR ---
OT NOTE: (AM) PT COMPLETED PERLITA BRIEF WITH MOD A WHILE SUPINE IN BED. PT ABLE TO PERFORM BRIDGE WITH FEET STABALIZED. PT COMPLETED SUPINE TO SIT WITH MIN A. PT HAD BM EPISODE AND REQUIRED MAX A FOR HYGIENE. PT REQUIRED MOD A FOR RE-DOFF/PERLITA BRIEFS. (PM) PT COMPLETED ADL MOB WITH MIN A. PT COMPLETED BED MOBILITY WITH MIN A. [id number] SONIA DOLAN COTA
--- NOTE | 2020-06-09 19:11 | NUR ---
RECIEVED UP IN BED WITH EYES CLOSED. EASILY AROUSES WITH VERBAL STIMULI. ORIENTED X4. O2@ 2 LITERS PER N/C IN PLACE. IV TO LT FA SL. DENIES ANY NEEDS AT THIS TIME.
[2020-06-10 03:00] VITALS: BP 151/77
[2020-06-10 06:44] LABS: BASOPHILS 0.2 % (0-2); EOSINOPHILS 2.1 % (0-7); HEMATOCRIT 29.6 % (42.0-54.0); HEMOGLOBIN 9.5 g/dL (13.5-17.5); IMMATURE GRANULOCYTES 0.7 % (0-5); LYMPHOCYTE ABS# 0.86 10x3/uL (1.32-3.57); LYMPHOCYTES 5.7 % (15-50); MCH 31.6 pg (26.0-34.0); MCHC 32.1 g/dL (31.0-37.0); MEAN PLATELET VOLUME 10.9 fL (7.4-10.4); MONOCYTES 7.3 % (2-11); NEUTROPHIL ABS# 12.58 10x3/uL (1.78-5.38); PLATELET COUNT 239 10x3/uL (130-400); RBC 3.01 10x6/uL (4.20-6.10); RDW 16.3 % (11.5-14.5)
[2020-06-10 06:50] LABS: MCV 98.3 fL (80.0-100.0)
[2020-06-10 07:27] LABS: ANION GAP 17.2 mmol/L (8-16); BILIRUBIN - TOTAL 0.73 mg/dL (0.2-1.3); CARBON DIOXIDE 22.6 mmol/L (21.0-32.0); CREATININE - SERUM 2.3 mg/dL (0.6-1.3); MAGNESIUM - SERUM 2.3 mg/dL (1.8-2.4); PHOSPHOROUS 3.5 mg/dL (2.5-4.9); POTASSIUM - SERUM 3.8 mmol/L (3.5-5.1); PROTEIN - SERUM 5.9 g/dL (6.4-8.2); VANCOMYCIN - RANDOM 15.9 ug/mL (10.0-20.0)
[2020-06-10 07:56] VITALS: BP 146/81
[2020-06-10 11:23] VITALS: BP 155/73
--- NOTE | 2020-06-10 13:21 | NUR ---
Nutrition Follow-up: Pt reports eating 100% of breakfast this AM. States that diarrhea is improving. Nursing assessment reports buttocks is reddened. Noted plans for rehab upon d/c. Diet: Renal ADA No new wt; last wt: 234.7# (06/03) Labs noted: Na 135, K+ 3.8, BUN 40, Cre 2.3, GFR 29, Glu 155, Ca 8.0, PO4 3.5, Alb 2.0 Meds noted: Questran, Imodium (PRN), MagOx, Florajen, Pepcid, Humulin, electrolyte protocol -Rec MD consider liberalizing to cardiac carb consistent diet; K+ & PO4 wnl. -Encourage PO intake and honor food preferences within diet restrictions. -Need new wt. -RD follow-up: 06/15
--- NOTE | 2020-06-10 13:40 | MORECARE ---
CASE MANAGEMENT DISCHARGE SUMMARY PATIENT: MANUEL BEAVERS UNIT: [id number] ADM DATE: 05/31/20 AGE: 80 : 41 SEX: M ROOM/BED: D.2117 AUTHOR: SALUD,DOC PHYSICIAN: REFERRING PHYSICIAN: JUVENAL KOCH MD DATE OF SERVICE: 06/10/20 Case Management Discharge Planning Summary CT Patient Name: MANUEL BEAVERS Attending MD : DOROTHEA KOCH, Medical Record: [id number] Encounter : [id number] Facility : [address] [place] [address] Admission Date : 123:21 Center Discharge Date : [address] [place] [address] Date of : DC Plan ID : [id number] Age/Sex/Martia : 80/ M/M Printed on : 06/10/20 13:40 CT DCP Review Details Anticipated D/C: Expected LOS : Case Status : INITIATED - Initial Reviewe: [id number] - So Ramirez Initial Review: 05/31/2020 Planned Disposi: 62 - Discharged/Trans to Rehab Facility Including Distinct Units of a Hospital Final Discharge: - Final Reviewer : : Final Review : Comments CT Entered Date Type Reviewer 06/10/20 13:36 CT Discharge Planning Gauri Ureña Comment CM received a call from Cynthia in inpatient rehab that they will accept today if medically stable. I informed Niesha Jimenez and he will discharge today to inpatient rehab. Patient's spouse is in room. IMM explained, signed, given, copy placed in MR. 06/08/20 19:03 CT Discharge Planning So Ramirez Comment CM spoke with patient at bedside he states that Dr. Koch is his PCP. He lives at home with his . He states that he has [facility]. He states that he would like to go to [facility] inpatient rehab before discharging home. THANIA signed CM will continue to follow and assist as needed with discharge planning / needs DCP Focus Questions & Answers DCP Screen High Risk Factors: Polypharmacy (greater than 10 meds) DCP Evaluation Patient and/or caregiver agree upon recommended Yes discharge plan? Patient's current cognitive status: *Oriented to person, place, situation, time and present Patient gives permission to discuss discharge SHAMA BEAVERS-SPOUSE [phone] plans with: (name, relationship and number) Patient's ability to cope with chronic illness d. No chronic illness Alternate discharge plan (if recommended plan not INPATIENT REHAB [facility] agreed upon by patient and/or caregiver): HOME W [facility] Functional screen assessment: Unable to manage ADLs without immediate ongoing assistance Physical Status: Mobility impaired Physical Status: Compromised skin integrity Partial Dependence, assistance required for: Eating Partial Dependence, assistance required for: Dressing Partial Dependence, assistance required for: Bathing Partial Dependence, assistance required for: Ambulation / Mobility Patient with capacity for self-care or can be No cared for in same environment as prior to hospitalization? Baseline cognitive status: *Oriented to person, place, situation, time and present Medication Management: Patient states can afford medications Planned post hospital services available for Yes patient? Pharmacy name(s): [facility] Planned post hospital services covered by Yes insurance plan? Does Patient have transportation to get home and Yes to follow-up medical appointments when discharged from the hospital? Would patient like to participate in any Care Not applicable Coordination programs (if applicable): Does the patient have electricity at home? Yes Does the patient have running water in their Yes house? Equipment in use: Walker - Rolling Equipment in use: Shower Chair Equipment in use: Cane - Quad Mental health screen: No mental health history Psychosocial status: Adult with physical limitations Abuse/Neglect: None Resources / Services in place: Home health Contact information for resources in use: SAMANTHA BROWN Re-evaluation Would patient like to participate in any Care Not applicable Coordination programs (if applicable): [facility] MANUEL BEAVERS MR#: [id number] /Age/Sex/Vwicfu80-Ncc-97 //M /M Attending Physician Name: ZEE [id number] Patient Account:[id number] [facility] Page -1 of 1 All edits/amendments must be made on the electronic document DICTATION DATE: 06/10/201339 WATCH LEADER: BRITNEY 06/10/20 134 RPT#: [id number] DC DATE: STATUS: ADM IN [facility] [address] [place] [address] END OF REPORT
[2020-06-10] MEDS ORDERED: IPRAT-ALBUT 0.5-3 ML INH (14:13)
[2020-06-10] MEDS ORDERED: VANCOMYCIN 1 GM/1 G1 IV (14:13)
[2020-06-10] MEDS ORDERED: MAXIPIME 1 GM/D51 G1 IV (14:13)
[2020-06-10] MEDS ORDERED: TOPROL XL50 MG PO (14:15)
[2020-06-10] MEDS ORDERED: ACETAMINOPHEN325 MG PO (14:15)
[2020-06-10] MEDS ORDERED: QUESTRAN PACKET PO (14:15)
[2020-06-10] MEDS ORDERED: LOPERAMIDE HCL2 MG PO (14:16)
[2020-06-10] MEDS ORDERED: PEPCID PO (14:16)
[2020-06-10] MEDS ORDERED: MAG-OX 400 MG400 MG PO (14:16)
[2020-06-10] MEDS ORDERED: HUMULIN R100 UNIT/1 SC (14:17)
[2020-06-10] MEDS ORDERED: MUPIROCIN22 GM NASAL (14:17)
[2020-06-10] MEDS ORDERED: CALMOSEPTINE OI71 GM TOPICAL (14:17)
--- NOTE | 2020-06-10 15:14 | NUR ---
GT BELT, O2 AT 3, PATIENT MIN ASST TO GET UP TO BEDSIDE AND TO STAND. PATIENT WALKED IN [place] WITH MIN-MOD ASST FOR 80 FEET. PATIENT FATIGUES QUICKLY. PATIENT SAT UP IN CHAIR AFTER WALK. PATIENT NEEDED MOD ASST TO STAND FROM CHAIR AND MIN-MOD ASST TO TAKE STEPS BTB.
--- NOTE | 2020-06-10 15:27 | NUR ---
TELEMETRY DCD. REPORT CALLED TO REHAB. ESCORTED BY W/C. AT SIDE.
--- NOTE | 2020-06-10 16:07 | NUR ---
OT NOTE: (AM) PT COMPLETED SUPINE TO SIT WITH MIN A. PT COMPLETED LB HYGIENE TASKS WITH MAX A. PT REQUIRED MAX A FOR PELRITA BRIEF. PT COMPLETED SIT TO STAND WITH CGA-MIN A. (PM) PT REQUIRED MIN A FOR SIT TO STAND. PT REQUIRED SETUP FOR HAND HYGIENE.PT REQUIRED MAX A FOR LB HYGIENE. PT COMPLETED ADL MOB WITH RW REQUIRED CGA-MIN A. [phone];1-120 SONIA DOLAN COTA
--- NOTE | 2020-06-11 10:10 | MORECARE ---
CASE MANAGEMENT DISCHARGE SUMMARY PATIENT: MANUEL BEAVERS UNIT: [id number] ADM DATE: 05/31/20 AGE: 80 : 41 SEX: M ROOM/BED: D.[facility] AUTHOR: SALUD,DOC PHYSICIAN: REFERRING PHYSICIAN: JUVENAL KOCH MD DATE OF SERVICE: 06/11/20 Case Management Discharge Planning Summary CT Patient Name: MANUEL BEAVERS Attending MD : DOROTHEA KOCH, Medical Record: [id number] Encounter : [id number] Facility : [address] [place] [address] Medical Admission Date : 123:21 Center Discharge Date : 06/10/[address] [place] [address] Date of : DC Plan ID : [id number] Age/Sex/Martia : 80/ M/M Printed on : 06/11/20 10:09 CT DCP Review Details Anticipated D/C: Expected LOS : Case Status : INITIATED - Initial Reviewe: [id number] - So Ramirze Initial Review: 05/31/2020 Planned Disposi: 62 - Discharged/Trans to Rehab Facility Including Distinct Units of a Hospital Final Discharge: - Final Reviewer : : Final Review : Comments CT Entered Date Type Reviewer 06/10/20 13:36 CT Discharge Planning Gauri Ureña Comment CM received a call from Cynthia in inpatient rehab that they will accept today if medically stable. I informed Niesha Jimenez and he will discharge today to inpatient rehab. Patient's spouse is in room. IMM explained, signed, given, copy placed in MR. 06/08/20 19:03 CT Discharge Planning So Ramirez Comment CM spoke with patient at bedside he states that Dr. Koch is his PCP. He lives at home with his . He states that he has [facility]. He states that he would like to go to [facility] inpatient rehab before discharging home. THANIA signed CM will continue to follow and assist as needed with discharge planning / needs DCP Focus Questions & Answers DCP Screen High Risk Factors: Polypharmacy (greater than 10 meds) DCP Evaluation Patient and/or caregiver agree upon recommended Yes discharge plan? Patient's current cognitive status: *Oriented to person, place, situation, time and present Patient gives permission to discuss discharge SHAMA BEAVERS-SPOUSE [phone] plans with: (name, relationship and number) Patient's ability to cope with chronic illness d. No chronic illness Alternate discharge plan (if recommended plan not INPATIENT REHAB NP agreed upon by patient and/or caregiver): HOME W [facility] Functional screen assessment: Unable to manage ADLs without immediate ongoing assistance Physical Status: Mobility impaired Physical Status: Compromised skin integrity Partial Dependence, assistance required for: Eating Partial Dependence, assistance required for: Dressing Partial Dependence, assistance required for: Bathing Partial Dependence, assistance required for: Ambulation / Mobility Patient with capacity for self-care or can be No cared for in same environment as prior to hospitalization? Baseline cognitive status: *Oriented to person, place, situation, time and present Medication Management: Patient states can afford medications Planned post hospital services available for Yes patient? Pharmacy name(s): [facility] Planned post hospital services covered by Yes insurance plan? Does Patient have transportation to get home and Yes to follow-up medical appointments when discharged from the hospital? Would patient like to participate in any Care Not applicable Coordination programs (if applicable): Does the patient have electricity at home? Yes Does the patient have running water in their Yes house? Equipment in use: Walker - Rolling Equipment in use: Shower Chair Equipment in use: Cane - Quad Mental health screen: No mental health history Psychosocial status: Adult with physical limitations Abuse/Neglect: None Resources / Services in place: Home health Contact information for resources in use: SAMANTHA MOTTA DCCarolin Re-evaluation Would patient like to participate in any Care Not applicable Coordination programs (if applicable): [facility] MANUEL BEAVERS MR#: [id number] /Age/Sex/Vdukap90-Mvx-16 //M /M Attending Physician Name: ZEE [id number] Patient Account:[id number] [facility] Page -1 of 1 All edits/amendments must be made on the electronic document DICTATION DATE: 06/11/20 1009 BARREL BRANDER: BRITNEY 06/11/20 100 RPT#: [id number] DC DATE:06/10/20 STATUS: DIS IN [address] [place] [address] END OF REPORT
--- NOTE | 2020-06-11 14:11 | MORECARE ---
CASE MANAGEMENT DISCHARGE SUMMARY PATIENT: MANUEL BEAVERS UNIT: [id number] ADM DATE: 05/31/20 AGE: 80 : 41 SEX: M ROOM/BED: D.[facility] AUTHOR: SALUD,DOC PHYSICIAN: REFERRING PHYSICIAN: JUVENAL KOCH MD DATE OF SERVICE: 06/11/20 Case Management Discharge Planning Summary CT Patient Name: MANUEL BEAVERS Attending MD : DROOTHEA KOCH, Medical Record: [id number] Encounter : [id number] Facility : [address] [place] [address] Medical Admission Date : 123:21 Center Discharge Date : 06/10/[address] [place] [address] Date of : DC Plan ID : [id number] Age/Sex/Martia : 80/ M/M Printed on : 06/11/20 14:10 CT DCP Review Details Anticipated D/C: Expected LOS : Case Status : INITIATED - Initial Reviewe: [id number] - So Ramirez Initial Review: 05/31/2020 Planned Disposi: 62 - Discharged/Trans to Rehab Facility Including Distinct Units of a Hospital Final Discharge: - Final Reviewer : : Final Review : Comments CT Entered Date Type Reviewer 06/10/20 13:36 CT Discharge Planning Gauri Ureña Comment CM received a call from Cynthia in inpatient rehab that they will accept today if medically stable. I informed Niesha Jimenez and he will discharge today to inpatient rehab. Patient's spouse is in room. IMM explained, signed, given, copy placed in MR. 06/08/20 19:03 CT Discharge Planning So Ramirez Comment CM spoke with patient at bedside he states that Dr. Koch is his PCP. He lives at home with his . He states that he has [facility]. He states that he would like to go to [facility] inpatient rehab before discharging home. THANIA signed CM will continue to follow and assist as needed with discharge planning / needs DCP Focus Questions & Answers DCP Screen High Risk Factors: Polypharmacy (greater than 10 meds) DCP Evaluation Patient and/or caregiver agree upon recommended Yes discharge plan? Patient's current cognitive status: *Oriented to person, place, situation, time and present Patient gives permission to discuss discharge SHAMA BEAVERS-SPOUSE [phone] plans with: (name, relationship and number) Patient's ability to cope with chronic illness d. No chronic illness Alternate discharge plan (if recommended plan not INPATIENT REHAB [facility] agreed upon by patient and/or caregiver): HOME W [facility] Functional screen assessment: Unable to manage ADLs without immediate ongoing assistance Physical Status: Mobility impaired Physical Status: Compromised skin integrity Partial Dependence, assistance required for: Eating Partial Dependence, assistance required for: Dressing Partial Dependence, assistance required for: Bathing Partial Dependence, assistance required for: Ambulation / Mobility Patient with capacity for self-care or can be No cared for in same environment as prior to hospitalization? Baseline cognitive status: *Oriented to person, place, situation, time and present Medication Management: Patient states can afford medications Planned post hospital services available for Yes patient? Pharmacy name(s): [facility] Planned post hospital services covered by Yes insurance plan? Does Patient have transportation to get home and Yes to follow-up medical appointments when discharged from the hospital? Would patient like to participate in any Care Not applicable Coordination programs (if applicable): Does the patient have electricity at home? Yes Does the patient have running water in their Yes house? Equipment in use: Walker - Rolling Equipment in use: Shower Chair Equipment in use: Cane - Quad Mental health screen: No mental health history Psychosocial status: Adult with physical limitations Abuse/Neglect: None Resources / Services in place: Home health Contact information for resources in use: SAMANTHA BROWN Re-evaluation Would patient like to participate in any Care Not applicable Coordination programs (if applicable): [facility] MANUEL BEAVERS MR#: [id number] /Age/Sex/Qtcnmm07-Ipm-41 //M /M Attending Physician Name: ZEE [id number] Patient Account:[id number] [facility] Page -1 of 1 All edits/amendments must be made on the electronic document DICTATION DATE: 06/11/201409 CLAM TREADER: BRITNEY 06/11/201409 RPT#: [id number] DC DATE:06/10/20 STATUS: DIS IN [facility] [address] [place] [address] END OF REPORT
== END 2020-06-10 15:28 | DRG 682 ==
LOC: D.ER 21:45 → D.ICU 23:21 → D.M2 06-03 11:30
PROVIDERS: Family Medicine; Internal Medicine Nephrology; ADMIT Family Medicine; ATTEND Family Medicine
DX: N17.0 Acute kidney failure with tubular necrosis (principal); I50.33 Acute on chronic diastolic (congestive) heart failure; E87.2 Acidosis; R00.1 Bradycardia, unspecified; E87.5 Hyperkalemia; R04.0 Epistaxis; D64.9 Anemia, unspecified; E11.65 Type 2 diabetes mellitus with hyperglycemia; E03.9 Hypothyroidism, unspecified; I11.0 Hypertensive heart disease with heart failure; I48.91 Unspecified atrial fibrillation

== ENCOUNTER 2020-06-10 15:54 | Inpatient (IN) | payer MEDICARE, BC ==
[~2020-06-10] VITALS: Ht 182.9 cm; Wt 104.3 kg
[~2020-06-10 15:54] MED LIST changes: +ACETAMINOPHEN325 MG PO; +ACIDOPHILUS-PE1 EACH PO; +CALMOSEPTINE OI71 GM TOPICAL; +COZAAR100 MG PO; +FERROUS SULFAT325 MG PO; +FIBER LAXATIVE500 MG PO; +GABAPENTIN300 MG PO; +HUMULIN R100 UNIT/1 SC; +IPRAT-ALBUT 0.5-3 ML INH; +K-TAB10 MEQ PO; +LOPERAMIDE HCL2 MG PO; +MAG-OX 400 MG400 MG PO; +MAXIPIME 1 GM/D51 G1 IV; +MUPIROCIN22 GM NASAL; +PEPCID PO; +QUESTRAN PACKET PO; +TOPROL XL50 MG PO; +TORSEMIDE20 MG PO; +TUMERIC/CURCUMIN; +VANCOMYCIN 1 GM/1 G1 IV; +VERAPAMIL ER P200 MG PO; +VITAMIN C500 M1 PO; +VITAMIN D-40010 MCG PO; +XARELTO20 MG PO; +ZOFRAN4 MG PO; +ZYRTEC10 MG PO; +[UNRECOGNIZED DRUG - OTHER]
[2020-06-10 16:30] VITALS: BP 141/83; BMI 31.2
[2020-06-10 16:30] LABS: BASOPHILS 0.1 % (0-2); EOSINOPHILS 1.8 % (0-7); HEMATOCRIT 27.8 % (42.0-54.0); HEMOGLOBIN 8.9 g/dL (13.5-17.5); IMMATURE GRANULOCYTES 0.6 % (0-5); LYMPHOCYTE ABS# 0.77 10x3/uL (1.32-3.57); MCH 31.2 pg (26.0-34.0); MCV 97.5 fL (80.0-100.0); MEAN PLATELET VOLUME 10.9 fL (7.4-10.4); MONOCYTES 8.2 % (2-11); NEUTROPHIL ABS# 12.99 10x3/uL (1.78-5.38); NEUTROPHILS 84.3 % (40-80); PLATELET COUNT 262 10x3/uL (130-400); RBC 2.85 10x6/uL (4.20-6.10); RDW 15.9 % (11.5-14.5); WBC 15.4 10x3/uL (4.8-10.8)
[2020-06-10 16:42] LABS: ANION GAP 16.3 mmol/L (8-16); CALCIUM 7.7 mg/dL (8.5-10.1); CARBON DIOXIDE 22.4 mmol/L (21.0-32.0); CREATININE - SERUM 2.3 mg/dL (0.6-1.3); POTASSIUM - SERUM 3.7 mmol/L (3.5-5.1)
--- NOTE | 2020-06-10 17:56 | NUR ---
PT RESTING IN BED WITH EYES OPEN CALL LIGHT IN REACH WILL MONITER
[2020-06-10 20:00] VITALS: BP 142/55
--- NOTE | 2020-06-10 21:00 | NUR ---
PT RESTING WITH EYES CLOSED. HE AROUSES TO VOICE. HE IS LETHARGIC AND BARELY OPENS HIS EYES BUT WILL ANSWER QUESTIONS APPROPRIATELY. HE IS ORIENTED X 4. 300ML OF YELLOW URINE EMPTIED FROM URINAL. WHEN ASKED IF HE HAS A LIVING WILL OR A POA HE REPORTED THAT HE DOES NOT WANT TO BE RESUSCITATED IN THE EVENT STOPS BREATHING OR HIS HEART STOPS. HE REPORTS HAVING A LIVING WILL AND HIS POA IS HIS SON, RICHY DURAND. HE WAS UNSURE OF HIS PHONE NUMBER. ASKED HIM IF HIS COULD BRING HIS POA AND LIVING WILL PAPER WORK TO THE HOSPITAL AND HE STATED HE WOULD ASK HER IF SHE COULD BRING IT UP HERE TOMORROW. HE DENIES PAIN OR NEEDS. BED ALARM IS ON AND CALL LIGHT IS WITHIN REACH.
--- NOTE | 2020-06-11 04:23 | NUR ---
PT UNABLE TO STAY AWAKE LONG ENOUGH TO SIGN ADMISSION PAPERWORK. HE WILL WAKE UP LONG ENOUGH TO ANSWER MY QUESTIONS OR TURN FOR ME BUT FALLS ASLEEP VERY QUICKLY. PLACED A NEW MEPILEX OVER STAGE 4 PRESSURE ULCER TO BUTTOCKS. THE DRESSINGS TO HIS BILATERAL FEET ARE CLEAN,DRY AND INTACT. HIS BED ALARM IS ON AND HIS CALL LIGHT IS WITHIN REACH. 200ML OF YELLOW URINE EMPTIED FROM URINAL.
--- NOTE | 2020-06-11 09:45 | NUR ---
PATIENT ADMITTED TO REHAB FROM ACUTE FLOOR. HIS PCP IS DR. KOCH. HE IS A CLIENT OF [facility]. AT DISCHARGE HIS PLANS ARE TO RETURN TO HIS HOME WITH HIS FAMILY. WILL CONTINUE TO FOLLOW WITH PATIENT.
[2020-06-11 11:13] VITALS: Ht 182.9 cm; Wt 104.3 kg
--- NOTE | 2020-06-11 15:14 | RHP ---
PATIENT: MANUEL BEAVERS MEDICAL RECORD: [id number] ACCOUNT: [id number] LOCATION:[facility] Franco[facility] : 42 ADMISSION DATE: 06/10/20 REHABILITATION HISTORY AND PHYSICAL EXAMINATION POST ADMISSION PHYSICIAN EXAMINATION ADMITTING DIAGNOSIS: Uremic myopathy. HISTORY OF PRESENT ILLNESS: The patient is a 80-year-old gentleman who actually resides with his , was independent with all of his care at home. Did use a walker and cane in public at times. He presented to the ER on 05/31/2020 with a nosebleed that would not stop. He was very weak. He is having difficulty standing up. He is found to have atrial fib, but his rate was only in the 30s. He had renal failure with creatinine of 4.4. His baseline had been 1.6, potassium was 5.9. The patient was admitted to the ICU for further evaluation and treatment. He was placed on dopamine drip, treated for his hyperkalemia, placed on telemetry. Had cardiac enzymes. He spent 3 days in the ICU before being discharged to the floor. He has been continued to be monitored his renal functions on the floor. He has had vancomycin levels done throughout his stay. The patient has proximal muscle weakness. His ambulation ability is varying from day to day, ranging from 10 feet with 15% to 20% assist to 40 feet with 25% to 30% of assist. He is requiring varying assistance with ADLs. He has weakness and fatigue. He is anemic. He has required 2 units of packed red blood cells. Fingerstick blood sugars are also being monitored closely. He has a venous ulceration to his bilateral foot that is being dressed and culture so far have been negative to date. He has also developed a reddened area around his bottom. Diarrhea has been monitored and has been treated with Questran and Imodium. He is requiring a minimum to moderate assist for bed mobility, max assist for hygiene, mod assist for toileting. He requires breaks to walk just feet secondary to weakness and shortness of breath. He has used a wheeled walker to standby assist. All the barriers that I have listed above are keeping him from going home directly from the hospital, require inpatient rehabilitation. Comorbidities include atrial fib, anemia, bradycardia, diastolic dysfunction, diabetes, hyperkalemia, hypomagnesemia, leukocytosis and hypothyroidism. PAST MEDICAL HISTORY: Significant for diabetes, hypertension, chronic AFib, osteoarthritis, gout, psoriasis, eczema. PAST SURGICAL HISTORY: Includes cholecystectomy and nasal surgery. ALLERGIES: SULFA DRUGS. CURRENT MEDICATIONS: Include Floranex he is on 1 tab daily, he is on vancomycin 1 gram every 24 hours, Maxipime 1 gram every 24 hours, simvastatin 40 mg daily, famotidine 20 mg daily, multivitamin daily, cholestyramine 1 packet b.i.d., Atrovent nasal spray daily, he is on metoprolol 50 mg b.i.d., Calmoseptine one application b.i.d., Mag-Ox 400 mg b.i.d., Neurontin 300 mg b.i.d., he is on a glucose replacement protocol as needed, Zofran 4 mg every 4 hours p.r.n. nausea or vomiting, he is on loperamide 1 to 2 mg every 4 hours p.r.n., he is on intermediate resistance sliding scale with Humalog, he is on Zovirax 800 mg daily, acetaminophen 500 mg every 4 hours and MiraLax 17 grams in 8 ounces of water daily. HABITS: No current alcohol or tobacco use. HISTORY AND PHYSICAL [id number] MANUEL BEAVERS FAMILY HISTORY: Noncontributory. SOCIAL HISTORY: The patient hopes to return back home and get back to his prior level of functioning. REVIEW OF SYSTEMS: GENERAL: Complain of weakness and fatigue. HEENT: Denies cold, cough or congestion. CARDIOVASCULAR: Denies any chest. PHYSICAL EXAMINATION: VITAL SIGNS: Stable, afebrile. GENERAL: An elderly gentleman who is in no acute distress, alert upon exam. HEENT: Normocephalic and atraumatic. Mucosa moist. NECK: Supple. No lymphadenopathy. LUNGS: Clear in the upper mckeon at this time. No wheezing or rales. HEART: Regular rate and rhythm. No murmurs, rubs or gallops. ABDOMEN: Soft, benign, nondistended. Positive bowel sounds times 4. EXTREMITIES: No clubbing, cyanosis or edema. NEUROLOGIC: He has got diffuse weakness. LABORATORY DATA: His random vancomycin level done on the 2nd was 18.6. His white count is 15.4, H&H 8.9 and 27.8, platelet count is noted to be 262. Sodium 133, potassium 3.7. His BUN and creatinine of 42 and 2.3 and blood sugar was noted to be 204. ASSESSMENT: A 80-year-old gentleman admitted to the rehab with the working diagnosis of uremic myopathy. The patient has potential to make improvement. We instituted the following multidisciplinary therapies including, not limited physical, occupational, respiratory, speech, nutritional services, prosthetics and orthotics. Given his complex medical condition and risks for more complications, rehabilitation services cannot be provided at a low level of care such as detention facility. PLAN: 1. Admit to [facility] for inpatient therapy to include the following disciplines; A. Physical therapy to improve gait, all transfer skills and bed mobility to a modified independent level. B. Occupational therapy to improve activities of daily living. C. Case management to help with discharge planning and placement options. D. Nutrition to assist with nutritional needs. E. Rehabilitation nursing to assist in monitoring the patient's underlying medical condition and to assist with any type of bowel or bladder management. 2. The patient's current medication and Medicare will be continued. 3. Placed on standard fall precautions. 4. The patient's estimated length of stay is approximately 7-10 days. 5. Discuss this patient during care team staff meeting this week. We will go ahead and watch his renal functions closely. We will consult renal if necessary and I will see again in the a.m. TRANSINT:[id number] Voice Confirmation ID: [id number] DOCUMENT ID: [id number] HISTORY AND PHYSICAL [id number] MANUEL BEAVERS notes whether there has been none or any medical/functional change since admission: - No change since preadmission screen. JULISSA attests patient continues to be appropriate for IRF: - Continues to be appropriate. ANDERSON DOMINGUEZ MD at 1514 CC: [id number] DICTATION DATE: 06/11/20 1121 CLINIC CMA: 06/11/20 1249 ADM IN [facility] [address] [place] [address]
--- NOTE | 2020-06-11 18:26 | NUR ---
PT RESTING WITH EYES OPEN AT BED SIDE PT STATED HE IS REALLY TIRED FROM THERAPY HE I HARD TO WAKE BUT RESPONDS WHEN ADDRESSED. CALL LIGHT IN REACH WILL MONITER
[2020-06-11 21:33] VITALS: BP 148/77
--- NOTE | 2020-06-12 01:42 | NUR ---
WHILE ON ROUNDS PATIENT USING URINAL. 300 CC 0F DARK COLORED URINE EMPTIED. BED LOW. CALL LIGHT WITHIN REACH. ALARM ON. TAMIKA CONTINUE TO MONITOR.
--- NOTE | 2020-06-12 02:57 | NUR ---
I have reviewed this patient and I concur with the Shift Assessment completed by the Licensed Practical Nurse today this shift.
--- NOTE | 2020-06-12 03:49 | NUR ---
PATIENT ALARM SOUNDING. PATIENT SITTING ON SIDE OF BED. PATIENT SPILLED HIS URINAL. BEDDING & GOWN CHANGED. PATIENT CLEANED & LAID BACK DOWN. ALARM ON. SIDE TABLE & URINALS WITHIN REACH. CALL LIGHT WITHIN REACH. WILL CONTINUE TO MOITOR.
[2020-06-12 06:13] LABS: BASOPHILS 0.3 % (0-2); EOSINOPHILS 2.8 % (0-7); HEMOGLOBIN 10.1 g/dL (13.5-17.5); IMMATURE GRANULOCYTES 0.6 % (0-5); LYMPHOCYTE ABS# 1.28 10x3/uL (1.32-3.57); LYMPHOCYTES 9.3 % (15-50); MCH 31.2 pg (26.0-34.0); MCHC 32.6 g/dL (31.0-37.0); MCV 95.7 fL (80.0-100.0); MEAN PLATELET VOLUME 10.7 fL (7.4-10.4); MONOCYTES 8.2 % (2-11); NEUTROPHILS 78.8 % (40-80); RBC 3.24 10x6/uL (4.20-6.10); RDW 15.6 % (11.5-14.5); WBC 13.7 10x3/uL (4.8-10.8)
[2020-06-12 06:16] LABS: PLATELET COUNT 329 10x3/uL (130-400)
[2020-06-12 06:36] LABS: ANION GAP 16.6 mmol/L (8-16); CALCIUM 7.9 mg/dL (8.5-10.1); CREATININE - SERUM 2.3 mg/dL (0.6-1.3); POTASSIUM - SERUM 3.6 mmol/L (3.5-5.1); VANCOMYCIN - RANDOM 14.2 ug/mL (10.0-20.0)
--- NOTE | 2020-06-12 08:30 | NUR ---
HE IS WORKING WITH PT, HE IS A LITTLE CONFUSED. HE HAS A SL IN THE LEFT HAND, GETTING IV ANTIBIOTICS. HIS BOTTOM IS RED, APPLIED MARKUS WHEN PT GOT HIM OUT OF THE BED TO THE WHEELCHAIR. HIS LEFT LOWER LEG IS BROWN IN COLOR WITH DRY SKIN. BILATERAL ANKLE/LOWER LEGS EDEMA 1+. THE CALL LIGHT IS WITHIN REACH AND THE BED ALARM IS ON.
[2020-06-12 08:53] VITALS: BP 138/66
[2020-06-12 19:00] VITALS: BP 162/78
--- NOTE | 2020-06-12 20:00 | NUR ---
PATIENT RECEIVED SITTING UP IN BED. ASSESSMENT & VITAL SIGNS DONE. BED LOW. ALARM ON. CALL LIGHT WITHIN REACH. WILL CONTINUE TO MONITOR.
--- NOTE | 2020-06-13 02:00 | NUR ---
PATIENT EYES CLOSED. RESPIRATIONS 18 & EVEN. BED LOW. URINAL & CALL LIGHT WITHIN REACH. WILL CONTINUE TO MONITOR.
--- NOTE | 2020-06-13 02:49 | NUR ---
ALARM SOUNDING. PATIENT BED DIRTY WITH BM & URINE. PATIENT STOOD UP NEXT TO BED WITH HIS WALKER. BED LINENS CHANGED. PATIENT BUTTOCKS & PERIAREA CLEANED. PATIENT SAT DOWN & TURNED HIS LEGS INTO BED. ALARM ON. CALL LIGHT WITHIN REACH. WILL CONTINUE TO MONITOR.
[2020-06-13 08:00] VITALS: BP 153/80
--- NOTE | 2020-06-13 09:00 | NUR ---
HE IS SETTING UP IN THE WHEELCHAIR. HE IS CONFUSED, HAD A BM THIS MORNING. APPLIED MARKUS TO HIS BOTTOM. HE TOOK HIS MEDICATIONS WITHOUT ANY PROBLEMS. THE CALL LIGHT IS WITHIN REACH AND THE CHAIR ALARM IS ON.
[2020-06-13 19:00] VITALS: BP 144/69
--- NOTE | 2020-06-13 20:00 | NUR ---
PATIENT RECEIVED SITTING UP IN BED. ASSESSMENT & VITAL SIGNS DONE. BED LOW. ALARM ON. CALL LIGHT, URINAL, BEDSIDE TABLE WITHIN REACH. WILL CONTINUE TO MONITOR.
--- NOTE | 2020-06-14 04:52 | NUR ---
I have reviewed this patient and I concur with the Shift Assessment completed by the Licensed Practical Nurse today this shift.
[2020-06-14 07:58] LABS: ANION GAP 17.5 mmol/L (8-16); CALCIUM 8.7 mg/dL (8.5-10.1); CARBON DIOXIDE 21.8 mmol/L (21.0-32.0); CREATININE - SERUM 2.1 mg/dL (0.6-1.3); POTASSIUM - SERUM 3.3 mmol/L (3.5-5.1); VANCOMYCIN - RANDOM 9.2 ug/mL (10.0-20.0)
[2020-06-14 08:00] VITALS: BP 170/79
[2020-06-14 08:00] LABS: BASOPHILS 0.5 % (0-2); EOSINOPHILS 3.3 % (0-7); HEMATOCRIT 29.7 % (42.0-54.0); HEMOGLOBIN 9.6 g/dL (13.5-17.5); IMMATURE GRANULOCYTES 0.6 % (0-5); LYMPHOCYTE ABS# 1.26 10x3/uL (1.32-3.57); LYMPHOCYTES 10.5 % (15-50); MCH 30.8 pg (26.0-34.0); MCHC 32.3 g/dL (31.0-37.0); MCV 95.2 fL (80.0-100.0); MEAN PLATELET VOLUME 10.8 fL (7.4-10.4); MONOCYTES 9.4 % (2-11); NEUTROPHIL ABS# 9.06 10x3/uL (1.78-5.38); NEUTROPHILS 75.7 % (40-80); RBC 3.12 10x6/uL (4.20-6.10); RDW 15.6 % (11.5-14.5)
--- NOTE | 2020-06-14 08:00 | NUR ---
PT RESTING IN BED WITH EYES OPEN CALL LIGHT IN REACH NO PROBLEMS WILL MONITER
[2020-06-14 08:02] LABS: PLATELET COUNT 455 10x3/uL (130-400)
--- NOTE | 2020-06-14 12:26 | NUR ---
Nutrition Follow-up Diet: Renal ADA [facility] soft thin liquids PO intake: ~23% average x last 8 meals; patient ate 100% of breakfast this AM Last BM: 06/13/20 x 2 Wt: 230# (06/11/20) Meds noted: probiotics, abx, MVI, magox, SSI Labs noted: K 3.3(L), BUN 35(H), Cr 2.1(H), GFR 32(L), Glu 146(H) Skin: stage 2-4 PU x 2 to L/R buttocks Recommendations/Interventions: -Will change diet to Diabetic [facility] Soft and remove renal restriction on diet as patient NOT on HD at this time. Additionally K is low and most recent PO4 from 06/10/20 is WNL. -Will continue to honor food preferences within diet restrictions. -Will continue to monitor PO intake and wt trend. -Will add Glucerna with meals. -RD will follow-up 06/17/20.
--- NOTE | 2020-06-14 17:55 | NUR ---
PT RESTING IN BED WITH EYES OPEN CALL LIGHT IN REACH WILL MONITER
--- NOTE | 2020-06-14 19:19 | NUR ---
PT LAYING QUIETLY IN BED, NO IMMEDIATE NEEDS NOTED, FLUIDS/CL WITHIN REACH
[2020-06-14 19:33] VITALS: BP 170/84
--- NOTE | 2020-06-15 07:30 | NUR ---
PT RESTING IN BED WITH EYES OPEN CALL LIGHT IN REACH WILL MONITER
[2020-06-15 08:01] VITALS: BP 132/84
--- NOTE | 2020-06-15 18:11 | NUR ---
PT RESTING IN BED AT BEDSIDE CALL LIGHT IN REACH NO PROBLEMS WILL MONITER
[2020-06-15 20:08] VITALS: BP 179/85
--- NOTE | 2020-06-16 01:55 | NUR ---
PT RESTING WITH EYES CLOSED. RESPIRATIONS EVEN AND UNLABORED. HIS BED IS LOW, BED ALARM ON AND CALL LIGHT IS WITHIN REACH.
[2020-06-16 06:47] LABS: BASOPHILS 0.3 % (0-2); HEMATOCRIT 30.5 % (42.0-54.0); HEMOGLOBIN 9.8 g/dL (13.5-17.5); IMMATURE GRANULOCYTES 1.1 % (0-5); LYMPHOCYTE ABS# 1.01 10x3/uL (1.32-3.57); LYMPHOCYTES 9.7 % (15-50); MCH 30.4 pg (26.0-34.0); MCHC 32.1 g/dL (31.0-37.0); MCV 94.7 fL (80.0-100.0); MEAN PLATELET VOLUME 11.2 fL (7.4-10.4); MONOCYTES 11.4 % (2-11); NEUTROPHIL ABS# 7.77 10x3/uL (1.78-5.38); NEUTROPHILS 74.5 % (40-80); PLATELET COUNT 436 10x3/uL (130-400); RBC 3.22 10x6/uL (4.20-6.10); RDW 15.6 % (11.5-14.5); WBC 10.4 10x3/uL (4.8-10.8)
[2020-06-16 07:24] LABS: ANION GAP 17.3 mmol/L (8-16); CALCIUM 8.5 mg/dL (8.5-10.1); CARBON DIOXIDE 21.6 mmol/L (21.0-32.0); CREATININE - SERUM 2.1 mg/dL (0.6-1.3); VANCOMYCIN - RANDOM 17.9 ug/mL (10.0-20.0)
[2020-06-16 07:33] LABS: POTASSIUM - SERUM 3.9 mmol/L (3.5-5.1)
[2020-06-16 07:58] VITALS: BP 133/91
--- NOTE | 2020-06-16 13:37 | NUR ---
CARE TEAM MEETING: PATIENT SPOUSE ATTENDED THE MEETING. HER QUESTIONS AND CONCERNS WERE ADDRESSED. TENATIVE DC DATE IS 06/22/20. HE IS A CLIENT OF [facility] AND WILL CONTINUE WITH THEM. WILL CONINTUE TO FOLLOW WITH PATIENT.
--- NOTE | 2020-06-16 13:41 | NUR ---
NUTRITION FOLLOW UP: INTERVIEW: Met with patient this am. He stated his appetite was good. He denied any recent nasuea and vomiting. He ate 100% of breakfast this am. DIET: ADA Mechanical Soft SUPPLEMENT: Glucerna with meals PO INTAKE: 52% avg for last 9 meals WEIGHT: 230 lbs on 06/11 BM: x 1 on 06/16 SKIN: PU x 2 to L/R buttocks SIG MEDS: Zocor, MVI, Pepcid, MagOx, Humulin SIG LABS: BUN-38(H), Cr-2.1(H), POC Glucose: 146, 224, 221, 228, 148 RECOMMENDATIONS: Continue ADA Mech Soft diet Continue Glucerna w/ meals Encourage high protein foods for wound healing
[2020-06-16 19:51] VITALS: BP 168/60
--- NOTE | 2020-06-17 05:56 | NUR ---
I have reviewed this patient and I concur with the Shift Assessment completed by the Licensed Practical Nurse today this shift.
[2020-06-17 08:27] VITALS: BP 152/89
--- NOTE | 2020-06-17 10:44 | NUR ---
HE HAS HAD A SHOWER, MARKUS TO BILATERAL BUTTOCKS. HE HAS A SMALL ROUND HEALING PLACE ON HIS RIGHT GREAT TOE. HIS LOWER LEGS ARE BROWN IN COLOR. HE IS LYING ON HIS RIGHT SIDE. THE CALL LIGHT IS WITHIN REACH AND THE BED ALARM IS ON.
--- NOTE | 2020-06-17 20:07 | NUR ---
PATIENT RESTING IN BED. EYES CLOSED. BED ALARM ON. CALL LIGHT WITHIN REACH. WILL CONTINUE WITH PLAN OF CARE
[2020-06-17 20:19] VITALS: BP 153/54
--- NOTE | 2020-06-17 23:57 | NUR ---
PATIENT SITTING AT THE SIDE OF THE BED, USING URINAL.
--- NOTE | 2020-06-18 02:33 | NUR ---
PATIENT RESTING WELL. EYES CLOSED. BED ALARM ON. CALL LIGHT WITHIN REACH
--- NOTE | 2020-06-18 04:50 | NUR ---
I have reviewed this patient and I concur with the Shift Assessment completed by the Licensed Practical Nurse today this shift.
[2020-06-18 05:56] LABS: BASOPHILS 0.6 % (0-2); EOSINOPHILS 3.4 % (0-7); HEMOGLOBIN 9.1 g/dL (13.5-17.5); IMMATURE GRANULOCYTES 0.9 % (0-5); LYMPHOCYTE ABS# 1.11 10x3/uL (1.32-3.57); LYMPHOCYTES 12.5 % (15-50); MCH 30.4 pg (26.0-34.0); MCHC 32.5 g/dL (31.0-37.0); MCV 93.6 fL (80.0-100.0); MEAN PLATELET VOLUME 10.2 fL (7.4-10.4); MONOCYTES 13.7 % (2-11); NEUTROPHIL ABS# 6.15 10x3/uL (1.78-5.38); NEUTROPHILS 68.9 % (40-80); PLATELET COUNT 520 10x3/uL (130-400); RBC 2.99 10x6/uL (4.20-6.10); RDW 15.3 % (11.5-14.5); WBC 8.9 10x3/uL (4.8-10.8)
[2020-06-18 06:30] LABS: ANION GAP 14.9 mmol/L (8-16); CALCIUM 8.3 mg/dL (8.5-10.1); CARBON DIOXIDE 22.7 mmol/L (21.0-32.0); CREATININE - SERUM 1.9 mg/dL (0.6-1.3); POTASSIUM - SERUM 3.6 mmol/L (3.5-5.1); VANCOMYCIN - RANDOM 10.4 ug/mL (10.0-20.0)
--- NOTE | 2020-06-18 08:43 | NUR ---
HE IS SETTING UP IN THE WHEELCHAIR, HIS IV IN THE LEFT HAND IS RED AND HURTS, I REMOVED IT. NEW IV IN THE LAC 22 G. HE IS C/O ALL THE "ACTIVITIES" HE HAS TO DO, PT,OT,SP. THE CALL LIGHT IS WITHIN REACH AND THE CHAIR ALARM IS ON.
[2020-06-18 11:03] VITALS: BP 176/84
--- NOTE | 2020-06-18 20:00 | NUR ---
PATIENT RECEIVED SITTING UP IN BED. ASSESSMENT & VITAL SIGNS DONE. NO C/O PAIN OR DISTRESS. URINAL, CALL LIGHT & BEDSIDE TABLE WITHIN REACH. ALARM ON. BED LOW. WILL CONTINUE TO MONITOR.
[2020-06-18 21:18] VITALS: BP 170/81
--- NOTE | 2020-06-19 04:52 | NUR ---
PATIENT EYES CLOSED. RESPIRATIONS 18 & EVEN. URINAL EMPTIED OF 400 CC 0F URINE. BED LOW. ALARM ON. CALLM LIGHT WITHIN REACH. WILL CONTINUE TO MONITOR.
--- NOTE | 2020-06-19 07:55 | NUR ---
PATIENT IS ALERT WITH SOME CONFUSION NOTED. BED ALARM ON. CALL LIGHT WITHIN REACH. VOICES NO NEEDS AT THIS TIME. WILL CONTINUE WITH PLAN OF CARE
[2020-06-19 10:19] VITALS: BP 158/86
--- NOTE | 2020-06-19 14:23 | NUR ---
PATIENT SITTING UP IN WHEELCHAIR BY BEDSIDE. CALL LIGHT WITHIN REACH. HAS A VISITOR IN ROOM
[2020-06-19 20:00] VITALS: BP 160/84
--- NOTE | 2020-06-19 20:00 | NUR ---
PATIENT RECEIVED SITTING UP IN BED. ASSESSMENT & VITAL SIGNS DONE. NO C/O PAIN OR DISTRESS AT THIS TIME. URINAL EMPTIED OF 300 CC OF CLEAR YELLOW URINE. BED LOW. ALARM ON. CALL LIGHT WITHN REACH. WILL CONTINUE TO MONITOR.
--- NOTE | 2020-06-20 02:20 | NUR ---
I have reviewed this patient and I concur with the Shift Assessment completed by the Licensed Practical Nurse today this shift.
--- NOTE | 2020-06-20 03:49 | NUR ---
PATIENT EYES CLOSED. RESPIRATIONS 20 & EVEN. URINAL EMPTIED OF 500 CC OF YELLOW COLOR URINE. BED LOW. URINAL, BEDSIDE TABLE, & CALL LIGHT WITHIN REACH. WILL CONTINUE TO MONITOR.
[2020-06-20 11:46] VITALS: BP 131/80
[2020-06-20 19:00] VITALS: BP 164/80
--- NOTE | 2020-06-20 19:10 | NUR ---
PATIENT RECEIVED LAYING IN BED. ASSESSMENT & VITAL SIGNS DONE. NO C/O PAIN OR DISTRESS. BED LOW. CALL LIGHT & BEDSIDE TABLE WITHIN REACH. ALARM ON. WILL CONTINUE TO MONITOR.
--- NOTE | 2020-06-21 02:21 | NUR ---
PATIENT LEGS 4 PLUS EDEMA, PITTING IN LEGS & FEET. WARM & EQUAL BOTH LEGS. WEAK PULSE TO BOTH LEGS. PATIENT STATES "I WEAR COMPRESSION SOCKS AT HOME." WILL CONTINUE TO MONITOR.
--- NOTE | 2020-06-21 03:27 | NUR ---
I have reviewed this patient and I concur with the Shift Assessment completed by the Licensed Practical Nurse today this shift.
--- NOTE | 2020-06-21 03:38 | NUR ---
PATIENT EYES CLOSED. RESPIRATIONS 18 & EVEN. BED LOW. ALARM ON. CALL LIGHT WITHIN REACH. WILL CONTINUE TO MONITOR.
[2020-06-21 08:00] VITALS: BP 157/77
[2020-06-21 08:35] LABS: BASOPHILS 1.2 % (0-2); EOSINOPHILS 2.2 % (0-7); HEMATOCRIT 31.1 % (42.0-54.0); HEMOGLOBIN 9.9 g/dL (13.5-17.5); IMMATURE GRANULOCYTES 0.7 % (0-5); LYMPHOCYTE ABS# 1.24 10x3/uL (1.32-3.57); MCH 29.9 pg (26.0-34.0); MCHC 31.8 g/dL (31.0-37.0); MEAN PLATELET VOLUME 10.1 fL (7.4-10.4); MONOCYTES 10.2 % (2-11); NEUTROPHIL ABS# 8.44 10x3/uL (1.78-5.38); NEUTROPHILS 74.7 % (40-80); RBC 3.31 10x6/uL (4.20-6.10); RDW 15.1 % (11.5-14.5); WBC 11.3 10x3/uL (4.8-10.8)
[2020-06-21 08:36] LABS: PLATELET COUNT 371 10x3/uL (130-400)
[2020-06-21 08:48] LABS: ANION GAP 17.8 mmol/L (8-16); CALCIUM 8.4 mg/dL (8.5-10.1); CREATININE - SERUM 1.9 mg/dL (0.6-1.3); POTASSIUM - SERUM 3.8 mmol/L (3.5-5.1)
--- NOTE | 2020-06-21 10:44 | NUR ---
NUTRITION FOLLOW UP: COMMENTS: Patient ate 75% of breakfast this am. He has not been experiencing any new issues with nausea or vomiting per MD. PO intake improving. DIET: ADA Mechanical Soft Diet SUPPLEMENT: Glucerna with meals PO INTAKE: 42% avg for last 10 meals WEIGHT: 230 lbs on 06/11 BM: x 4 on 06/18 SIG MEDS: Probiotic, Zocor, MVI, Pepcid, MagOx, Humulin SIG LABS: BUN-32(H), Ca-8.4(L), POC Glucose- 138, 203, 271, 145, 184 RECOMMENDATIONS: Continue ADA Mech Soft Diet with Thin Liquids Continue Glucerna with Meals Encourage PO intake Encourage high protein foods for wound healing RD to follow up within 7 days
[2020-06-21 19:56] VITALS: BP 180/91
[2020-06-22 07:45] VITALS: BP 127/78
[2020-06-22 07:51] VITALS: BP 152/78
--- NOTE | 2020-06-22 09:23 | NUR ---
PATIENT DISCHARGING HOME TODAY WITH FAMILY. [facility] WILL RESUME THERAPY AT HOME. THANIA SIGNED, IMM SERVED AND EXPLAINED, ONE GIVEN TO PATIENT AND ONE FILED IN CHART.NO NEW DME NEEDED AT THIS TIME. DR. CROUCH OFFICE WILL CALL PATIENT WITH AN APPOINTMENT. DR. TEJEDA/NOHEMI HUMPHREY 07/12/20 @ 1:30, DR. GOMEZ/PRAVEEN 07/07/20 @ 9:40. DISCHARGE INSTRUCTIONS FAXED TO PCP, HOME HEALTH AND REVIEWED WITH PATIENT AND SPOUSE.
--- NOTE | 2020-06-22 10:40 | NUR ---
HE IS SETTING UP IN THE CHAIR FOR BREAKFAST. HE SLEEP IN THIS MORNING. I CLEANED AND APPLIED CALMOSEPTINE TO HIS BUTTOCKS. HE IS DISCHARGING TODAY. THE CALL LIGHT IS WITHIN REACH AND THE BED ALARM IS ON.
--- NOTE | 2020-06-22 13:36 | NUR ---
PAPERWORK GONE OVER WITH THE PATIENT AND HIS . QUESTIONS ANSWERED AND FOLLOW UP APPOINTMENT INFO GIVEN IN PAPERWORK. MEDS CALLED INTO [facility] ON [address]. HE WAS TAKEN OUT IN A WHEELCHAIR WITH HIS WITH HIM.
== END 2020-06-22 13:38 | disposition home health service (06) | DRG 92 ==
LOC: D.REHAB 15:54
PROVIDERS: Internal Medicine Nephrology; ADMIT Emergency Medicine; ATTEND Emergency Medicine
DX: G72.89 Other specified myopathies (principal); I48.20 Chronic atrial fibrillation, unspecified; I50.30 Unspecified diastolic (congestive) heart failure; I48.91 Unspecified atrial fibrillation; D64.9 Anemia, unspecified; E11.9 Type 2 diabetes mellitus without complications; E87.5 Hyperkalemia; E83.42 Hypomagnesemia; E03.9 Hypothyroidism, unspecified; D72.829 Elevated white blood cell count, unspecified; I11.0 Hypertensive heart disease with heart failure

== ENCOUNTER 2020-08-15 12:58 | Inpatient (IN) | payer MEDICARE, BC ==
[~2020-08-15] VITALS: Ht 182.9 cm; Wt 96.2 kg
[2020-08-15] MEDS ORDERED: BAYER CHEWABLE81 MG PO (13:13)
[2020-08-15 13:35] LABS: BASOPHILS 0.6 % (0-2); EOSINOPHILS 3.2 % (0-7); HEMOGLOBIN 10.9 g/dL (13.5-17.5); MCH 26.1 pg (26.0-34.0); MCV 81.4 fL (80.0-100.0); MEAN PLATELET VOLUME 7.2 fL (7.4-10.4); NEUTROPHILS 78.2 % (40-80); PLATELET COUNT 390 10x3/uL (130-400); RBC 4.18 10x6/uL (4.20-6.10); RDW 16.3 % (11.5-14.5); WBC 10.4 10x3/uL (4.8-10.8)
[2020-08-15 13:44] VITALS: BP 182/96
[2020-08-15 13:52] LABS: CALC OSMOLALITY 281 mosm/kg (275-300); CALCIUM 9.1 mg/dL (8.5-10.1); CARBON DIOXIDE 28.8 mmol/L (21.0-32.0); CHLORIDE - SERUM 97 mmol/L (98-107); CREATININE - SERUM 2.1 mg/dL (0.6-1.3); GLUCOSE 160 mg/dL (74-106); POTASSIUM - SERUM 3.6 mmol/L (3.5-5.1); SODIUM 135 mmol/L (136-145); UREA NITROGEN 37 mg/dL (7-18); eGFR NON AFRICAN AMERICAN 32 mL/min (90-120)
[2020-08-15 14:00] LABS: ALKALINE PHOSPHATASE 186 U/L (30-120); ALT (SGPT) 34 U/L (10-68); AMYLASE - SERUM 53 U/L (25-115); BILIRUBIN - TOTAL 0.47 mg/dL (0.2-1.3); LIPASE 175 U/L (73-393); PROTEIN - SERUM 7.6 g/dL (6.4-8.2)
[2020-08-15 14:01] LABS: TROPONIN-I < 0.017 ng/mL (0.000-0.060)
[2020-08-15 14:13] LABS: APTT 29.9 SECONDS (22.8-39.4); INR 1.28 (0.85-1.17); PROTIME 14.8 SECONDS (11.6-15.0)
--- NOTE | 2020-08-15 14:19 | NUR ---
REQUESTED URINE, PATIENT STATES HE IS AWARE OF THE NEEDED URINE IS TRYING, DISCUSSED DOING AN IN & OUT CATH HE DECLINED.
[2020-08-15 14:28] LABS: CKMB 2.2 U/L (0.0-3.6); CREATINE KINASE 47 UL (21-232); PRO BNP 11913 pg/mL (0-450)
[2020-08-15 14:51] LABS: BILIRUBIN NEGATIVE (NEGATIVE); KETONE NEGATIVE (NEGATIVE); NITRITE NEGATIVE (NEGATIVE); UROBILINOGEN NORMAL mg/dL (< 2)
[2020-08-15 15:02] LABS: SQUAMOUS EPITHELIAL 0-5 HPF (0-4); WHITE CELLS - URINE 0-5 HPF (0-1)
[2020-08-15 15:03] LABS: BACTERIA FEW HPF (NONE SEEN)
[2020-08-15 19:00] VITALS: BP 179/104
[2020-08-15 20:01] VITALS: BP 171/92
[2020-08-15 20:21] LABS: MAGNESIUM - SERUM 2.3 mg/dL (1.8-2.4)
[2020-08-15 21:01] VITALS: BP 173/88
[2020-08-15 21:20] VITALS: BP 155/84
[2020-08-15 23:00] VITALS: BP 152/90
--- NOTE | 2020-08-16 01:12 | NUR ---
RECEIVED REPORT, WILL ASSUME CARE OF PT, PT UNSURE ABOUT MEDS,HISTORY COMPLETE, PLACED ON TELEMTRY, BED IS LOW, SRX2, CALL LIGHT IN REACH, WILL CONTINUE PLAN OF CARE
[2020-08-16 04:00] VITALS: BP 158/83
[2020-08-16 06:35] LABS: BASOPHILS 1.7 % (0-2); EOSINOPHILS 1.8 % (0-7); HEMATOCRIT 31.9 % (42.0-54.0); HEMOGLOBIN 10.2 g/dL (13.5-17.5); LYMPHOCYTES 8.1 % (15-50); MCV 81.2 fL (80.0-100.0); MEAN PLATELET VOLUME 7.7 fL (7.4-10.4); MONOCYTES 10.7 % (2-11); NEUTROPHILS 77.7 % (40-80); PLATELET COUNT 354 10x3/uL (130-400); RBC 3.93 10x6/uL (4.20-6.10); RDW 16.7 % (11.5-14.5); WBC 10.7 10x3/uL (4.8-10.8)
[2020-08-16 06:50] LABS: ALBUMIN 2.4 g/dL (3.4-5.0); ANION GAP 12.2 mmol/L (8-16); BILIRUBIN - TOTAL 0.59 mg/dL (0.2-1.3); CALCIUM 8.5 mg/dL (8.5-10.1); CREATININE - SERUM 1.9 mg/dL (0.6-1.3); MAGNESIUM - SERUM 1.9 mg/dL (1.8-2.4); POTASSIUM - SERUM 3.2 mmol/L (3.5-5.1); PROTEIN - SERUM 6.9 g/dL (6.4-8.2)
--- NOTE | 2020-08-16 07:20 | NUR ---
RECIEVE REPORT. RESTING IN BED WITH EYES CLOSED. AROUSES TO STIMULI. CONTROLLED AFIB 70 ON TELEMETRY. DENIES ANY NEEDS. CONTINUE PLAN OF CARE AND SAFETY PRECAUTIONS.
[2020-08-16 09:00] VITALS: BP 177/86
[2020-08-16] MEDS ORDERED: JANUVIA50 MG PO (09:07)
[2020-08-16] MEDS ORDERED: TOPROL XL100 MG PO (09:08)
[2020-08-16] MEDS ORDERED: TORSEMIDE20 MG PO (09:10)
[2020-08-16] MEDS ORDERED: EX-LAX MAXIMUM25 MG PO (09:11)
[2020-08-16 12:50] VITALS: BP 176/86
[2020-08-16 16:18] VITALS: BP 163/80
[2020-08-16 20:00] VITALS: BP 173/98
[2020-08-17] VITALS: BP 167/88
--- NOTE | 2020-08-17 03:16 | NUR ---
I have reviewed this patient and I concur with the Shift Assessment completed by the Licensed Practical Nurse today this shift.
[2020-08-17 04:00] VITALS: BP 155/95
[2020-08-17 06:37] LABS: BASOPHILS 1.3 % (0-2); EOSINOPHILS 4.7 % (0-7); HEMATOCRIT 31.3 % (42.0-54.0); HEMOGLOBIN 10.5 g/dL (13.5-17.5); LYMPHOCYTES 7.8 % (15-50); MCH 26.8 pg (26.0-34.0); MCHC 33.6 g/dL (31.0-37.0); MCV 79.7 fL (80.0-100.0); MEAN PLATELET VOLUME 7.6 fL (7.4-10.4); MONOCYTES 13.2 % (2-11); PLATELET COUNT 360 10x3/uL (130-400); RBC 3.93 10x6/uL (4.20-6.10); RDW 16.7 % (11.5-14.5); WBC 10.5 10x3/uL (4.8-10.8)
[2020-08-17 06:47] LABS: ALBUMIN 2.4 g/dL (3.4-5.0); ANION GAP 14.2 mmol/L (8-16); BILIRUBIN - TOTAL 0.6 mg/dL (0.2-1.3); CARBON DIOXIDE 27.8 mmol/L (21.0-32.0); MAGNESIUM - SERUM 1.9 mg/dL (1.8-2.4)
--- NOTE | 2020-08-17 08:13 | CN ---
PATIENT NAME:MAUNEL BEAVERS MEDICAL RECORD: [id number] : 42 LOCATION:[facility] ADMIT DATE: 08/16/20 ACCOUNT: [id number] CONSULTING PHYSICIAN: PEDRO KESSLER MD REFERRING PHYSICIAN: PEDRO SOTO MD DATE OF CONSULTATION: 08/16/2020 HISTORY OF PRESENT ILLNESS: A 80-year-old gentleman with a history of atrial fibrillation, diastolic dysfunction via echo, on rate control, admitted with diarrhea alternating with constipation. This has been ongoing, concern for C. diff. He does report some exertional dyspnea. This basically waxes and wanes. Clinically, his rate is currently controlled, was bradycardic at one point; however, this was when he was hyperkalemic with a creatinine approaching 5 actually at one point. We are asked to see him concerning his cardiovascular status. PAST MEDICAL HISTORY: Includes; 1. History of hypertension. 2. Hyperlipidemia. 3. Chronic renal insufficiency, recent exacerbation with acute on chronic renal insufficiency. 4. Diabetes. MEDICATIONS: Include Januvia 50 mg p.o. every day, Zofran 4 mg p.o. every day, furosemide 10 mg daily, Neurontin 300 b.i.d., aspirin 81 every day, Metoprolol 100 b.i.d., and simvastatin 40 every day. ALLERGIES: INCLUDE SULFA AND IODINE. REVIEW OF SYSTEMS: The patient reports easy bruising but reports no swollen glands. The patient reports no fever, no night sweats, no significant weight gain, no significant weight loss. No significant exercise tolerance. The patient reports no dry eyes, no irritation, no vision change. Patient reports no difficulty hearing and no ear pain. Patient reports no frequent nose bleeds or nose and sinus problems. Patient reports on arm pain on exertion. No shortness of breath while lying down. No history of heart murmur. Patient reports no cough, no wheezing or coughing up blood. Patient reports no abdominal pain, no vomiting. Normal appetite. No diarrhea and not vomiting blood. No nausea and no constipation. Patient reports no incontinence. No difficulty urinating. No hematuria. No increased frequency. Patient reports no muscle aches. No weakness, no arthralgias, no back pain. No swelling of the extremities. Patient reports no abnormal mole, no jaundice, no rashes. Reports no loss of consciousness. No weakness and no numbness. No seizures, dizziness, or headaches. The patient reports no depression, no sleep disturbance, feeling safe in a relationship and no alcohol abuse. Patient reports on fatigue. Reports no runny nose or sinus pressure. No itching, no hives, and no frequent sneezing. SOCIAL HISTORY: Nonsmoker, nondrinker. Typically takes care of all his ADLs, although more problems of late. PHYSICAL EXAMINATION: GENERAL: No acute distress, appears stated age, alert and oriented times 3. VITAL SIGNS: Pulse 76, blood pressure 177/86. HEENT: Normocephalic, atraumatic. CONSULT REPORT [id number] NIMESH,MANUEL NECK: No bruits noted. HEART: Irregular, rate is controlled. LUNGS: Good air excursion. ABDOMEN: Soft, mild tenderness. EXTREMITIES: Pulses 1+. Trace edema. NEUROLOGIC: Grossly intact. LABORATORY DATA: EKG shows atrial fibrillation with rate controlled. IMPRESSION: Appears to be stable from a cardiovascular status, atrial fibrillation is chronic in nature. Until GI issues are currently worked out, we would not start DOAC at this point, although need to be considered in the future given his CHADS score. Left ventricular function is normal. Most recent echo last month. Further recommendations based on clinical course. TRANSINT:[id number] Voice Confirmation ID: [id number] DOCUMENT ID: [id number] PEDRO KESSLER MD at 0813 CC: [id number] DICTATION DATE: 08/16/20 0943 SIGN CARPENTER: 08/16/20 1400 ADM IN [facility] [address] [place] [address]
[2020-08-17 08:14] VITALS: BP 155/98
[2020-08-17 11:37] VITALS: BP 159/94
[2020-08-17 12:23] VITALS: Ht 182.9 cm; Wt 96.2 kg
[2020-08-17 16:00] VITALS: BP 178/92
[2020-08-17 20:00] VITALS: BP 172/106
[2020-08-18] VITALS (7 sets, daily range): BP systolic 125–176; BP diastolic 61–107
--- NOTE | 2020-08-18 00:49 | NUR ---
I have reviewed this patient and I concur with the Shift Assessment completed by the Licensed Practical Nurse today this shift.
--- NOTE | 2020-08-18 01:51 | NUR ---
RESTING WITH EYES CLOSED. RESPERATIONS EVEN, NO S/S DISTRESS NOTED.
[2020-08-18 06:12] LABS: BASOPHILS 1.2 % (0-2); EOSINOPHILS 7.1 % (0-7); HEMATOCRIT 32.9 % (42.0-54.0); HEMOGLOBIN 10.9 g/dL (13.5-17.5); LYMPHOCYTES 8.9 % (15-50); MCH 26.5 pg (26.0-34.0); MCHC 33.2 g/dL (31.0-37.0); MCV 79.8 fL (80.0-100.0); MEAN PLATELET VOLUME 7.7 fL (7.4-10.4); MONOCYTES 11.2 % (2-11); NEUTROPHILS 71.6 % (40-80); PLATELET COUNT 345 10x3/uL (130-400); RBC 4.12 10x6/uL (4.20-6.10); RDW 16.6 % (11.5-14.5); WBC 10.4 10x3/uL (4.8-10.8)
[2020-08-18 06:28] LABS: ALBUMIN 2.4 g/dL (3.4-5.0); ANION GAP 13.3 mmol/L (8-16); BILIRUBIN - TOTAL 0.6 mg/dL (0.2-1.3); CALCIUM 8.1 mg/dL (8.5-10.1); CARBON DIOXIDE 29.5 mmol/L (21.0-32.0); CREATININE - SERUM 1.9 mg/dL (0.6-1.3); MAGNESIUM - SERUM 1.7 mg/dL (1.8-2.4); PROTEIN - SERUM 6.9 g/dL (6.4-8.2)
[2020-08-18 07:32] LABS: POTASSIUM - SERUM 2.8 mmol/L (3.5-5.1)
--- NOTE | 2020-08-18 15:51 | NUR ---
PRESCREEN ORDER RECEIVED. OF 1551, PATIENT STILL DOES NOT HAVE HIS PHYSICAL THERAPY EVALUATION COMPLETED. WE WILL LOOK AGAIN AT HIM WHEN HE HAS HIS EVALUATION COMPLETED. THANK YOU FOR THIS REFERRAL. SANFORD RONDON RN CLINCIAL LIAISON, INPATIENT REHAB.
--- NOTE | 2020-08-18 20:09 | NUR ---
RECIEVED UP IN BED WITH EYES OPEN ANSD TV ON. ALERT AND ORIENTED X4. UP AD MARLON. REQUESTED HIS GABAPENTIN BE RESTARTED D/T HIS NEUROPATHY. CALLED СЕРГЕЙ PERDOMO WITH NEW ORDER FOR GABAPENTIN 300MG BID. HE IS AWARE OF N.O.
[2020-08-19] VITALS: BP 140/81
--- NOTE | 2020-08-19 05:03 | NUR ---
PHYSICAL THERAPY EVALUATION WAS COMPLETED. PATIENT IS HIGH FUNCTIONING AND REFUSING REHAB. WE THANK YOU FOR THE REFERRAL. SANFORD RONDON RN CLINICAL LIAISON, INPATIENT REHAB.
[2020-08-19 05:38] VITALS: BP 126/82
[2020-08-19 07:24] LABS: BASOPHILS 1.3 % (0-2); HEMATOCRIT 32.9 % (42.0-54.0); HEMOGLOBIN 10.6 g/dL (13.5-17.5); LYMPHOCYTES 10.2 % (15-50); MEAN PLATELET VOLUME 7.7 fL (7.4-10.4); MONOCYTES 12.6 % (2-11); NEUTROPHILS 68.9 % (40-80); PLATELET COUNT 360 10x3/uL (130-400); RBC 4.07 10x6/uL (4.20-6.10); RDW 16.8 % (11.5-14.5); WBC 8.4 10x3/uL (4.8-10.8)
[2020-08-19 07:51] LABS: ALBUMIN 2.5 g/dL (3.4-5.0); ANION GAP 9.8 mmol/L (8-16); BILIRUBIN - TOTAL 0.49 mg/dL (0.2-1.3); CALCIUM 8.3 mg/dL (8.5-10.1); CARBON DIOXIDE 31.7 mmol/L (21.0-32.0); CREATININE - SERUM 2.1 mg/dL (0.6-1.3); MAGNESIUM - SERUM 1.7 mg/dL (1.8-2.4); POTASSIUM - SERUM 3.5 mmol/L (3.5-5.1); PROTEIN - SERUM 6.5 g/dL (6.4-8.2)
[2020-08-19 08:50] VITALS: BP 160/98
--- NOTE | 2020-08-19 11:34 | NUR ---
GT BELT, PATIENT SITTING AT BEDSIDE, SBA TO STAND AND CGA TO WALK 300 FEET USING WALKER.
--- NOTE | 2020-08-19 12:49 | NUR ---
Nutrition Follow-up: Appetite/PO intake improving. No N/V this AM but reports some yesterday. Formed BMs yesterday. Diet: Cardiac, Carb Consistent PO intake: 58% avg x 3 meals (08/18) Wt: 209# (08/19) Labs noted: K+ 3.5, BUN 32, Cre 2.1, GFR 32, Glu 119, Ca 8.3, Mg 1.7, Alb 2.5 Meds noted: Zofran, Metamucil, probiotic, Miralax, Pepcid, Humulin, electrolyte protocol -Encourage PO intake and honor food preferences within diet restrictions. -+Glucerna with meals. -Monitor wt. -RD will follow up within 4-5 days.
--- NOTE | 2020-08-19 14:15 | NUR ---
PER RUTH WITH RENAL, DR OTT, PT CAN NOT HAVE MRI CONTRAST AT THIS TIME. WE WILL DO MRI OF ABDOMEN WITHOUT CONTRAST.
[2020-08-19 15:30] VITALS: BP 142/851
[2020-08-19 21:34] VITALS: BP 129/68
[2020-08-20 04:32] VITALS: BP 144/85
[2020-08-20 07:50] VITALS: BP 153/85
[2020-08-20 09:33] LABS: BASOPHILS 2.4 % (0-2); EOSINOPHILS 8.7 % (0-7); HEMOGLOBIN 11.6 g/dL (13.5-17.5); LYMPHOCYTES 9.9 % (15-50); MCH 25.8 pg (26.0-34.0); MCHC 32.1 g/dL (31.0-37.0); MCV 80.5 fL (80.0-100.0); MEAN PLATELET VOLUME 7.4 fL (7.4-10.4); MONOCYTES 13.9 % (2-11); NEUTROPHILS 65.1 % (40-80); PLATELET COUNT 431 10x3/uL (130-400); RBC 4.47 10x6/uL (4.20-6.10); RDW 16.5 % (11.5-14.5); WBC 7.2 10x3/uL (4.8-10.8)
[2020-08-20 09:47] LABS: ALBUMIN 2.8 g/dL (3.4-5.0); ANION GAP 9.5 mmol/L (8-16); BILIRUBIN - TOTAL 0.57 mg/dL (0.2-1.3); CALCIUM 9.1 mg/dL (8.5-10.1); CARBON DIOXIDE 36.8 mmol/L (21.0-32.0); CREATININE - SERUM 2.3 mg/dL (0.6-1.3); MAGNESIUM - SERUM 1.8 mg/dL (1.8-2.4); POTASSIUM - SERUM 3.3 mmol/L (3.5-5.1); PROTEIN - SERUM 7.8 g/dL (6.4-8.2)
[2020-08-20] MEDS ORDERED: TOPROL XL50 MG PO (11:03)
[2020-08-20] MEDS ORDERED: TORSEMIDE20 MG PO (11:06)
[2020-08-20] MEDS ORDERED: LACTINEX GRANUL1 PCK PO (11:06)
[2020-08-20] MEDS ORDERED: MIRALAX17 GM PO (11:07)
[2020-08-20] MEDS ORDERED: METAMUCIL PACKE1 PKT PO (11:07)
[2020-08-20] MEDS ORDERED: FLORASTOR250 MG PO (11:07)
--- NOTE | 2020-08-20 12:08 | NUR ---
02 SAT 93% AT REST AND WHILE AMBULATING.
--- NOTE | 2020-08-20 14:18 | NUR ---
IV AND TELEMETRY DCD. DC PLANS GIVEN. UNDERSTANDING VOICED. ESCORTED TO CAR BY W/C.
== END 2020-08-20 14:19 | disposition home health service (06) | DRG 189 ==
LOC: D.ER 12:58 → D.M2 16:29 → D.EDHOLD 16:29 → OBSVTIME 16:29 → D.M2 23:40
PROVIDERS: Family Medicine; Internal Medicine Gastroenterology; ADMIT Family Medicine; ATTEND Family Medicine
DX: J81.0 Acute pulmonary edema (principal); E43 Unspecified severe protein-calorie malnutrition; N17.9 Acute kidney failure, unspecified; E87.1 Hypo-osmolality and hyponatremia; I13.0 Hypertensive heart and chronic kidney disease with heart failure and stage 1 through stage 4 chronic kidney disease, or unspecified chronic kidney disease; I50.32 Chronic diastolic (congestive) heart failure; D50.9 Iron deficiency anemia, unspecified; E11.65 Type 2 diabetes mellitus with hyperglycemia; M19.90 Unspecified osteoarthritis, unspecified site; E03.9 Hypothyroidism, unspecified; M1A.9XX0 Chronic gout, unspecified, without tophus (tophi); L40.9 Psoriasis, unspecified; I48.91 Unspecified atrial fibrillation; Z79.84 Long term (current) use of oral hypoglycemic drugs; R19.7 Diarrhea, unspecified; Z68.28 Body mass index [BMI] 28.0-28.9, adult; M10.9 Gout, unspecified; R53.81 Other malaise; N28.1 Cyst of kidney, acquired; E87.6 Hypokalemia; K57.90 Diverticulosis of intestine, part unspecified, without perforation or abscess without bleeding; K21.9 Gastro-esophageal reflux disease without esophagitis

== ENCOUNTER → 2020-09-06 10:07 | Outpatient (CLI) | payer MEDICARE, BC ==
[2020-08-17 12:23] VITALS: BMI 28.5
[~2020-09-06 10:07] MED LIST changes: +BAYER CHEWABLE81 MG PO; +EX-LAX MAXIMUM25 MG PO; +FLORASTOR250 MG PO; +JANUVIA50 MG PO; +LACTINEX GRANUL1 PCK PO; +METAMUCIL PACKE1 PKT PO; +TOPROL XL100 MG PO
== END | disposition home or self-care (01) ==
LOC: D.RAD 10:07
PROVIDERS: ATTEND Internal Medicine Pulmonary Disease
DX: I50.9 Heart failure, unspecified (principal)

== ENCOUNTER → 2020-09-09 12:00 | Outpatient (CLI) | payer MEDICARE, BC ==
[2020-08-17 12:23] VITALS: BMI 28.5
== END | disposition home or self-care (01) ==
LOC: D.RAD 12:00
PROVIDERS: ATTEND Internal Medicine Gastroenterology
DX: R19.4 Change in bowel habit (principal)